=== PATIENT | female | born 1965 | race Caucasian/White ===

== ENCOUNTER 2016-08-04 14:48 | Emergency (ER) | payer MEDICARE, MEDICAID ==
[2016-08-04 15:07] VITALS: BP 102/76
--- NOTE | 2016-08-04 15:13 | EDM.PDOC ---
ED HPI GENERAL MEDICAL PROBLEM - General Chief Complaint: General Stated Complaint: RX REFILL Time Seen by Provider: 08/04/16 14:59 Source of Information: Reports: Patient, RN, RN notes reviewed History Limitations: Reports: No limitations - History of Present Illness INITIAL COMMENTS - FREE TEXT/NARRATIVE: Patient presents to the ED at [facility] requesting refill of her Tramadol. Patient states she ran out of her medication 2 days ago and is having severe fibromyalgia pain. Patient states she did contact her PCP for a refill, but was never contacted back from the pharmacy stating a refill was ready. Patient complain of nausea and feelings of withdrawal symptoms. Onset Date: 08/02/16 - Related Data Allergies Allergy/AdvReac Type Severity Reaction Status Date / Time codeine Allergy Rash Verified 08/04/16 15:12 Sulfa (Sulfonamide Allergy Rash Verified 08/04/16 15:12 Antibiotics) Home Meds: Home Meds ClonazePAM [KlonoPIN] 2 mg PO BID 08/19/13 [History] Gabapentin [Neurontin] 300 mg PO TID 08/19/13 [History] Indomethacin [Indocin] 25 mg PO TID #30 cap 08/19/13 [Rx] Levothyroxine 25 mcg PO ACBRK 08/19/13 [History] Topiramate [Topamax] 50 mg PO BEDTIME 08/19/13 [History] Venlafaxine [Effexor] 100 mg PO DAILY 08/19/13 [History] traMADol HCl [Ultram] 50 mg PO QID PRN 08/19/13 [History] Acetaminophen/HYDROcodone [[place]nard 325-5 MG] 1 - 2 tab PO Q6H PRN #4 tab 08/20/13 [Rx] Hydrocodone/Acetaminophen [[place] 10-325 Tablet] 1 each PO Q4H #14 tablet [Rx] Social & Family History - Tobacco Use Years of Tobacco use: 20 - Alcohol Use Days Per Week of Alcohol Use: 0 - Recreational Drug Use Recreational Drug Use: No ED ROS GENERAL - Review of Systems Review Of Systems: See Below Constitutional: Denies: fever, chills, weakness Respiratory: Denies: shortness of breath, cough Cardiovascular: Denies: Chest pain, Blood pressure problem, Palpitations GI/Abdominal: Reports: Nausea. Denies: Abdominal pain, Diarrhea, Vomiting Skin: Reports: no symptoms Neurological: Denies: confusion, headache, tremors, trouble speaking Psychiatric: Reports: Agitation ED EXAM, GENERAL - Physical Exam Exam: See Below Exam Limited By: No limitations General Appearance: alert, no apparent distress, thin, cachetic Respiratory/Chest: no respiratory distress, lungs clear, normal breath sounds Cardiovascular: normal peripheral pulses, regular rate, rhythm. No: tachycardia GI/Abdominal: normal bowel sounds, soft, non tender, no distention Neurological: alert, oriented Psychiatric: tearful Skin Exam: Warm, Dry, Intact, Normal color, No rash Course - Vital Signs Last Recorded V/S: Last Vital Signs Temp 36.9 C 08/04/16 15:00 Pulse 86 08/04/16 15:00 Resp 18 08/04/16 15:00 BP 102/76 08/04/16 15:00 Pulse Ox 99 08/04/16 15:00 - Orders/Labs/Meds Meds: Medications Discontinued Medications Generic Name Dose Route Start Last Admin Trade Name Brianna PRN Reason Stop Dose Admin Lorazepam 2 packet 08/04/16 15:20 Take Home: Lorazepam 0.5 Mg, 2 Tab Pack PO 08/04/16 15:21 ONETIME ONE Ondansetron HCl 1 packet 08/04/16 15:21 Take Home: Ondansetron Odt 4 Mg, 2 Tab Pack PO 08/04/16 15:22 ONETIME ONE Departure - Departure Time of Disposition: 15:30 Disposition: Home, Self-Care 01 Condition: good Clinical Impression: Narcotic dependence, Medication refill Referrals: Gilbert Jordan MD [Primary Care Provider] - Forms: ED Department Discharge Additional Instructions: 1. Keep appointment with Dr. Jordan for this Friday 2. Take medications as prescribed 3. Stay well hydrated and rest - Problem List Review Problem List Initiated/Reviewed/Updated: Yes - Assessment/Plan Plan: [place] accessed on 08/04/2016 @15:23
[2016-08-04] MEDS ORDERED: Take Home: LORazepam 0.5 MG Tab, 2 Tab Pack PO ONE (15:20)
[2016-08-04] MEDS ORDERED: Take Home: Ondansetron 4 MG Tab.DIS, 2 Tab Pack PO ONE (15:21)
== END 2016-08-04 16:05 | disposition home or self-care (01) ==
LOC: VM.ED 14:48
DX: F11.20 Opioid dependence, uncomplicated (principal); Z76.0 Encounter for issue of repeat prescription; Z88.2 Allergy status to sulfonamides; Z88.5 Allergy status to narcotic agent; Z79.899 Other long term (current) drug therapy
CPT/HCPCS: 99283; A9270

== ENCOUNTER 2017-02-14 17:46 | Emergency (ER) | payer MEDICARE, MEDICAID ==
[~2017-02-14 17:46] MED LIST: Ketorolac 30 MG/ML SDV IM ONE
--- NOTE | 2017-02-14 17:46 | EDM.PDOC ---
<Samson Marte - Last Filed: 02/14/17 19:28> ED HPI GENERAL MEDICAL PROBLEM - General Chief Complaint: Flank Pain Stated Complaint: right lower back/flank pain Time Seen by Provider: 02/14/17 17:10 - Related Data Allergies Allergy/AdvReac Type Severity Reaction Status Date / Time codeine Allergy Rash Verified 02/14/17 17:24 Sulfa (Sulfonamide Allergy Rash Verified 02/14/17 17:24 Antibiotics) Home Meds: Home Meds ClonazePAM [KlonoPIN] 2 mg PO BID 08/19/13 [History] Gabapentin [Neurontin] 600 mg PO TID 08/19/13 [History] Levothyroxine 25 mcg PO ACBRK 08/19/13 [History] Topiramate [Topamax] 400 mg PO BEDTIME 08/19/13 [History] Venlafaxine [Effexor] 100 mg PO BID 08/19/13 [History] traMADol HCl [Ultram] 100 mg PO QID PRN 08/19/13 [History] Cyanocobalamin (Vitamin B-12) [Vitamin B-12] 1,000 mcg PO DAILY 08/04/16 [ History] Fluticasone Propionate [Flonase] 2 sprays NASBOTH DAILY 08/04/16 [History] Omeprazole Magnesium [Prilosec Otc] 20 mg PO DAILY 08/04/16 [History] Pregabalin [Lyrica] 100 mg PO BID 08/04/16 [History] traZODone HCl [Trazodone HCl] 50 mg PO DAILY 08/04/16 [History] Hydrochlorothiazide 25 mg PO DAILY 02/14/17 [History] Norgestrel-Ethinyl Estradiol [Cryselle-28 Tablet] 1 each PO DAILY 02/14/17 [ History] Tamsulosin HCl [Flomax] 0.4 mg PO DAILY 5 Days #5 cap.er.24h 02/14/17 [Rx] Course - Vital Signs Last Recorded V/S: Last Vital Signs Temp 37.0 C 02/14/17 17:05 Pulse 76 02/14/17 17:05 Resp 20 02/14/17 17:05 BP 123/67 02/14/17 17:05 Pulse Ox 97 02/14/17 17:05 - Orders/Labs/Meds Labs: Laboratory Tests 02/14/17 02/14/17 02/14/17 Range/Units 17:34 18:07 18:07 Sodium 139 (136-145) mmol/L Potassium 3.8 (3.5-5.1) mmol/L Chloride 104 (98-107) mmol/L Carbon Dioxide 24 (21-32) mmol/L BUN 12 (7-18) mg/dL Creatinine 1.2 H (0.55-1.02) mg/dL Est Cr Clr Drug Dosing TNP Estimated GFR (MDRD) 48 Glucose 89 (74-106) mg/dL Calcium 8.3 L (8.5-10.1) mg/dL Urine Color Yellow (YELLOW) Urine Appearance Clear (CLEAR) Urine pH 7.0 (5.0-8.0) Ur Specific [place] 1.015 Urine Protein Negative (NEGATIVE) mg/dL Urine Glucose (UA) Negative (NEGATIVE) mg/dL Urine Ketones Negative (NEGATIVE) mg/dL Urine Occult Blood Negative (NEGATIVE) Urine Nitrite Negative (NEGATIVE) Urine Bilirubin Negative (NEGATIVE) Urine Urobilinogen 0.2 (0.2) EU/dL Ur Leukocyte Esterase Small H (NEGATIVE) Urine RBC 0-5 (NOT SEEN) /HPF Urine WBC 5-10 H (NOT SEEN) /HPF Ur Squamous Epith Cells Rare (NEGATIVE) /HPF Urine Bacteria Not seen (NEGATIVE) /HPF Urine Mucus Not seen (NEGATIVE) /LPF Urine HCG, Qual Negative (NEGATIVE) Urine Opiates Screen (NEGATIVE) Ur Buprenorphine Scrn (NEGATIVE) Ur Oxycodone Screen (NEGATIVE) Urine Methadone Screen (NEGATIVE) Ur Barbiturates Screen (NEGATIVE) Ur Tricyclics Screen (NEGATIVE) Ur Amphetamine Screen (NEGATIVE) U Methamphetamines Scrn (NEGATIVE) Urine MDMA Screen (NEGATIVE) U Benzodiazepines Scrn (NEGATIVE) U Cocaine Metab Screen (NEGATIVE) U Marijuana (THC) Screen (NEGATIVE) 02/14/17 Range/Units 18:07 Sodium (136-145) mmol/L Potassium (3.5-5.1) mmol/L Chloride (98-107) mmol/L Carbon Dioxide (21-32) mmol/L BUN (7-18) mg/dL Creatinine (0.55-1.02) mg/dL Est Cr Clr Drug Dosing Estimated GFR (MDRD) Glucose (74-106) mg/dL Calcium (8.5-10.1) mg/dL Urine Color (YELLOW) Urine Appearance (CLEAR) Urine pH (5.0-8.0) Ur Specific [place] Urine Protein (NEGATIVE) mg/dL Urine Glucose (UA) (NEGATIVE) mg/dL Urine Ketones (NEGATIVE) mg/dL Urine Occult Blood (NEGATIVE) Urine Nitrite (NEGATIVE) Urine Bilirubin (NEGATIVE) Urine Urobilinogen (0.2) EU/dL Ur Leukocyte Esterase (NEGATIVE) Urine RBC (NOT SEEN) /HPF Urine WBC (NOT SEEN) /HPF Ur Squamous Epith Cells (NEGATIVE) /HPF Urine Bacteria (NEGATIVE) /HPF Urine Mucus (NEGATIVE) /LPF Urine HCG, Qual (NEGATIVE) Urine Opiates Screen Negative (NEGATIVE) Ur Buprenorphine Scrn Negative (NEGATIVE) Ur Oxycodone Screen Negative (NEGATIVE) Urine Methadone Screen Negative (NEGATIVE) Ur Barbiturates Screen Negative (NEGATIVE) Ur Tricyclics Screen Negative (NEGATIVE) Ur Amphetamine Screen Presumptive pos (NEGATIVE) U Methamphetamines Scrn Positive H (NEGATIVE) Urine MDMA Screen Negative (NEGATIVE) U Benzodiazepines Scrn Positive H (NEGATIVE) U Cocaine Metab Screen Negative (NEGATIVE) U Marijuana (THC) Screen Negative (NEGATIVE) Meds: Medications Discontinued Medications Generic Name Dose Route Start Last Admin Trade Name Freq PRN Reason Stop Dose Admin Hydrocodone Bitart/Acetaminophen 1 packet 02/14/17 19:32 02/14/17 19:43 Take Home: Acetam/Hydrocodon 325-5 Mg, 5 Pack PO 02/14/17 19:33 1 packet ONETIME ONE Administration Ketorolac Tromethamine 30 mg 02/14/17 17:26 02/14/17 17:39 Toradol IM 02/14/17 17:27 30 mg ONETIME ONE Administration Morphine Sulfate 4 mg 02/14/17 18:49 02/14/17 18:56 Morphine IM 02/14/17 18:50 4 mg ONETIME ONE Administration - Radiology Interpretation Free Text/Narrative:: CT Abd/Pelvis: Right Side Nephrolithiasis; No hydronephrosis; No radiopaque Ureteral calculusl; narrowing of the sigmoid colon of uncertain significance; slight prominence of the endometrium See scanned document in EMR CT Results Date: 02/14/17 CT Results Time: 19:17 Departure - Departure Time of Disposition: 19:33 Disposition: Home, Self-Care 01 Condition: Good Clinical Impression: Nephrolithiasis - Discharge Information Prescriptions: Tamsulosin HCl [Flomax] 0.4 mg PO DAILY 5 Days #5 cap.er.24h Instructions: Kidney Stones, [id number] Referrals: Gilbert Jordan MD [Primary Care Provider] - Forms: ED Department Discharge Additional Instructions: 1. stay well hydrate and rest 2. LOTS of fluids; water 3. Use pain pills sparingly, do not mix with Tramadol 4. See your Primary as symptoms warrant - Problem List Review Problem List Initiated/Reviewed/Updated: Yes <Yossi Tirado - Last Filed: 02/16/17 19:37> ED HPI GENERAL MEDICAL PROBLEM - General Source of Information: Reports: Patient, Provider History Limitations: Reports: No Limitations - History of Present Illness INITIAL COMMENTS - FREE TEXT/NARRATIVE: Patient presents to the ED with complaints of right flank pain that she woke to yesterday. States pain has been getting more intense since that time. Faina Downey called at 1700 letting me know that she was sending her over to be looked at. Urinalysis showed no blood in her urine, trace leukocytes. Apparently she was not happy with not getting medicine for pain and she began yelling and swearing at the provider at the [facility]. She currently does take tramadol, gabapentin, lyrica, trazodone, among other medications like klonopin, topamax, effexor, synthroid, vitamin b-12, HCTZ, flonase. States she had a kidney stone about 5-6 years ago. She states her pain today is sharp, stabbing, and intermittent and feels like labor. 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) Other OB/BYN History: menorrhagia Musculoskeletal History: Reports: Fibromyalgia, Other (See Below) Other Musculoskeletal History: family history of polymositis Neurological History: Reports: Migraines, Other (See Below) Other Neuro History: family history of char[place] li[place] tooth Psychiatric History: Reports: Anxiety, Depression Endocrine/Metabolic History: Reports: Hypothyroidism Hematologic History: Reports: B12 Deficiency - Infectious Disease History Infectious Disease History: Reports: Hepatitis C - Past Surgical History GI Surgical History: Reports: Other (See Below) Other GI Surgeries/Procedures: splenectomy Social & Family History - Tobacco Use Smoking Status *Q: Current Every Day Smoker Years of Tobacco use: 30 Packs/Tins Daily: 0.5 - Alcohol Use Days Per Week of Alcohol Use: 0 - Recreational Drug Use Recreational Drug Use: No ED ROS GENERAL - Review of Systems Review Of Systems: See Below Constitutional: Reports: No Symptoms HEENT: Reports: No Symptoms Respiratory: Reports: No Symptoms Cardiovascular: Reports: No Symptoms Endocrine: Reports: No Symptoms GI/Abdominal: Reports: No Symptoms : Reports: No Symptoms Musculoskeletal: Reports: Back Pain Skin: Reports: No Symptoms Neurological: Reports: No Symptoms Psychiatric: Reports: No Symptoms Hematologic/Lymphatic: Reports: No Symptoms Immunologic: Reports: No Symptoms ED EXAM,LOWER BACK PAIN/INJURY - Physical Exam Exam: See Below Exam Limited By: No Limitations General Appearance: Alert, WD/WN, Moderate Distress Eye Exam: Bilateral Eye: EOMI, PERRL Ears: Normal TMs Throat/Mouth: Normal Inspection, Normal Oropharynx Head: Atraumatic, Normocephalic Neck: Normal Inspection Respiratory/Chest: No Respiratory Distress, Lungs Clear, Normal Breath Sounds, No Accessory Muscle Use, Chest Non-Tender Cardiovascular: Normal Peripheral Pulses, Regular Rate, Rhythm, No Edema GI/Abdominal: Normal Bowel Sounds, Soft, Non-Tender, No Organomegaly, No Distention Back Exam: Normal Inspection, CVA Tenderness (R), Decreased Range of Motion. No : CVA Tenderness (L) Extremities: Normal Inspection, Normal Range of Motion, Non-Tender, No Pedal Edema, Normal Capillary Refill Neurological: Alert, Normal Mood/Affect, Normal Dorsiflexion, CN II-XII Intact, Oriented x 3 Psychiatric: Normal Affect, Anxious Skin Exam: Warm, Dry, Intact, Normal Color Lymphatic: No Adenopathy Course - Orders/Labs/Meds Labs: Laboratory Tests 02/14/17 02/14/17 02/14/17 Range/Units 17:34 18:07 18:07 Sodium 139 (136-145) mmol/L Potassium 3.8 (3.5-5.1) mmol/L Chloride 104 (98-107) mmol/L Carbon Dioxide 24 (21-32) mmol/L BUN 12 (7-18) mg/dL Creatinine 1.2 H (0.55-1.02) mg/dL Est Cr Clr Drug Dosing TNP Estimated GFR (MDRD) 48 Glucose 89 (74-106) mg/dL Calcium 8.3 L (8.5-10.1) mg/dL Urine Color Yellow (YELLOW) Urine Appearance Clear (CLEAR) Urine pH 7.0 (5.0-8.0) Ur Specific [place] 1.015 Urine Protein Negative (NEGATIVE) mg/dL Urine Glucose (UA) Negative (NEGATIVE) mg/dL Urine Ketones Negative (NEGATIVE) mg/dL Urine Occult Blood Negative (NEGATIVE) Urine Nitrite Negative (NEGATIVE) Urine Bilirubin Negative (NEGATIVE) Urine Urobilinogen 0.2 (0.2) EU/dL Ur Leukocyte Esterase Small H (NEGATIVE) Urine RBC 0-5 (NOT SEEN) /HPF Urine WBC 5-10 H (NOT SEEN) /HPF Ur Squamous Epith Cells Rare (NEGATIVE) /HPF Urine Bacteria Not seen (NEGATIVE) /HPF Urine Mucus Not seen (NEGATIVE) /LPF Urine HCG, Qual Negative (NEGATIVE) Urine Opiates Screen (NEGATIVE) Ur Buprenorphine Scrn (NEGATIVE) Ur Oxycodone Screen (NEGATIVE) Urine Methadone Screen (NEGATIVE) Ur Barbiturates Screen (NEGATIVE) Ur Tricyclics Screen (NEGATIVE) Ur Amphetamine Screen (NEGATIVE) U Methamphetamines Scrn (NEGATIVE) Urine MDMA Screen (NEGATIVE) U Benzodiazepines Scrn (NEGATIVE) U Cocaine Metab Screen (NEGATIVE) U Marijuana (THC) Screen (NEGATIVE) 02/14/17 Range/Units 18:07 Sodium (136-145) mmol/L Potassium (3.5-5.1) mmol/L Chloride (98-107) mmol/L Carbon Dioxide (21-32) mmol/L BUN (7-18) mg/dL Creatinine (0.55-1.02) mg/dL Est Cr Clr Drug Dosing Estimated GFR (MDRD) Glucose (74-106) mg/dL Calcium (8.5-10.1) mg/dL Urine Color (YELLOW) Urine Appearance (CLEAR) Urine pH (5.0-8.0) Ur Specific [place] Urine Protein (NEGATIVE) mg/dL Urine Glucose (UA) (NEGATIVE) mg/dL Urine Ketones (NEGATIVE) mg/dL Urine Occult Blood (NEGATIVE) Urine Nitrite (NEGATIVE) Urine Bilirubin (NEGATIVE) Urine Urobilinogen (0.2) EU/dL Ur Leukocyte Esterase (NEGATIVE) Urine RBC (NOT SEEN) /HPF Urine WBC (NOT SEEN) /HPF Ur Squamous Epith Cells (NEGATIVE) /HPF Urine Bacteria (NEGATIVE) /HPF Urine Mucus (NEGATIVE) /LPF Urine HCG, Qual (NEGATIVE) Urine Opiates Screen Negative (NEGATIVE) Ur Buprenorphine Scrn Negative (NEGATIVE) Ur Oxycodone Screen Negative (NEGATIVE) Urine Methadone Screen Negative (NEGATIVE) Ur Barbiturates Screen Negative (NEGATIVE) Ur Tricyclics Screen Negative (NEGATIVE) Ur Amphetamine Screen Presumptive pos (NEGATIVE) U Methamphetamines Scrn Positive H (NEGATIVE) Urine MDMA Screen Negative (NEGATIVE) U Benzodiazepines Scrn Positive H (NEGATIVE) U Cocaine Metab Screen Negative (NEGATIVE) U Marijuana (THC) Screen Negative (NEGATIVE)
[2017-02-14 17:53] LABS: CHLORIDE,CL 104 mmol/L (98-107); SODIUM,NA 139 mmol/L (136-145)
[2017-02-14] MEDS ORDERED: Morphine 4 MG/ML Syringe IM ONE (18:49)
[2017-02-14] MEDS ORDERED: Take Home: Acetaminophen/HYDROcodone 325-5 MG, 5 Tab Pack PO ONE (19:32)
== END 2017-02-14 19:52 | disposition home or self-care (01) ==
LOC: VM.ED 19:52
DX: N20.0 Calculus of kidney (principal); G43.909 Migraine, unspecified, not intractable, without status migrainosus; E03.9 Hypothyroidism, unspecified; F17.210 Nicotine dependence, cigarettes, uncomplicated; Z88.2 Allergy status to sulfonamides; Z88.5 Allergy status to narcotic agent
CPT/HCPCS: 36415; 74176; 80048; 80305; 81001; 81025; 87086; 87088; 87186; 96372; 99284; A9270; G0480; J1885; J2270

== ENCOUNTER 2017-02-25 14:21 | Emergency (ER) | payer MEDICARE, MEDICAID ==
[2017-02-25] MEDS ORDERED: Ketorolac 30 MG/ML SDV IVPUSH ONE (15:05)
[2017-02-25] MEDS ORDERED: Prochlorperazine 10 MG/2 ML SDV IV ONE (15:05)
[2017-02-25] MEDS ORDERED: cefTRIAXone 2 GM Vial IVPUSH ONE (15:53)
[2017-02-25] MEDS ORDERED: Take Home: Acetaminophen/HYDROcodone 325-10 MG, 5 Tab Pack PO ONE (15:57)
--- NOTE | 2017-02-25 18:22 | EDM.PDOC ---
ED HPI GENERAL MEDICAL PROBLEM - General Chief Complaint: Flank Pain Stated Complaint: ER Time Seen by Provider: 02/25/17 14:22 Source of Information: Reports: Patient History Limitations: Reports: No Limitations - History of Present Illness INITIAL COMMENTS - FREE TEXT/NARRATIVE: Pt. presents to clinic with complaints of diffuse abdominal and flank pain. Pt. was diagnosed with UTI on 02/15/17 and was prescribed oral antibiotics, but failed to fill her script. Pt. as also found to have an approx. 5 mm. right sided kidney stone for which she was prescribed hydrocodone and flomax. 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 She states that she is not experiencing any fever or chills and denies any nausea/vomiting, or diarrhea. Pt. contacted EMS who did give the pt. 1 mg of dilaudid. Onset: Today, Gradual Onset Date: 02/15/17 Location: Reports: Abdomen Quality: Reports: Ache, Sharp, Stabbing Severity: Severe Improves with: Reports: Medication Right Flank Pain Score (Numeric/FACES): 9 - Related Data Allergies Allergy/AdvReac Type Severity Reaction Status Date / Time codeine Allergy Rash Verified 02/25/17 14:36 Sulfa (Sulfonamide Allergy Rash Verified 02/25/17 14:36 Antibiotics) Home Meds: Home Meds ClonazePAM [KlonoPIN] 2 mg PO BID 08/19/13 [History] Gabapentin [Neurontin] 600 mg PO TID 08/19/13 [History] Levothyroxine 25 mcg PO ACBRK 08/19/13 [History] Topiramate [Topamax] 400 mg PO BEDTIME 08/19/13 [History] Venlafaxine [Effexor] 100 mg PO BID 08/19/13 [History] traMADol HCl [Ultram] 100 mg PO QID PRN 08/19/13 [History] Cyanocobalamin (Vitamin B-12) [Vitamin B-12] 1,000 mcg PO DAILY 08/04/16 [ History] Fluticasone Propionate [Flonase] 2 sprays NASBOTH DAILY 08/04/16 [History] Omeprazole Magnesium [Prilosec Otc] 20 mg PO DAILY 08/04/16 [History] Pregabalin [Lyrica] 100 mg PO BID 08/04/16 [History] traZODone HCl [Trazodone HCl] 50 mg PO DAILY 08/04/16 [History] Hydrochlorothiazide 25 mg PO DAILY 02/14/17 [History] Norgestrel-Ethinyl Estradiol [Cryselle-28 Tablet] 1 each PO DAILY 02/14/17 [ History] Tamsulosin HCl [Flomax] 0.4 mg PO DAILY 5 Days #5 cap.er.24h 02/14/17 [Rx] Past Medical History Genitourinary History: Reports: Renal Calculus Musculoskeletal History: Reports: Fibromyalgia Psychiatric History: Reports: Anxiety Endocrine/Metabolic History: Reports: Hypothyroidism Social & Family History - Tobacco Use Smoking Status *Q: Current Every Day Smoker Years of Tobacco use: 30 Packs/Tins Daily: 0.5 - Alcohol Use Days Per Week of Alcohol Use: 0 - Recreational Drug Use Recreational Drug Use: No ED ROS GENERAL - Review of Systems Review Of Systems: See Below Constitutional: Reports: No Symptoms, Fever HEENT: Reports: No Symptoms Respiratory: Reports: No Symptoms Cardiovascular: Reports: No Symptoms Endocrine: Reports: No Symptoms GI/Abdominal: Reports: Abdominal Pain : Reports: Other (history of untreated UTI and kidney stone) Musculoskeletal: Reports: No Symptoms Skin: Reports: No Symptoms Neurological: Reports: No Symptoms Psychiatric: Reports: No Symptoms Hematologic/Lymphatic: Reports: No Symptoms Immunologic: Reports: No Symptoms ED EXAM, RENAL/ - Physical Exam Exam: See Below Exam Limited By: No Limitations General Appearance: Alert, WD/WN, No Apparent Distress Throat/Mouth: Normal Inspection, Normal Lips, Normal Oropharynx, Normal Voice, No Airway Compromise Respiratory/Chest: No Respiratory Distress, Lungs Clear, Normal Breath Sounds, No Accessory Muscle Use, Chest Non-Tender Cardiovascular: Normal Peripheral Pulses, Regular Rate, Rhythm, No Murmur GI/Abdominal: Normal Bowel Sounds, No Organomegaly, No Distention, No Mass Back Exam: Normal Inspection Extremities: Normal Inspection, Normal Range of Motion, Normal Capillary Refill Neurological: Alert, Oriented, CN II-XII Intact Psychiatric: Normal Affect, Normal Mood Skin Exam: Warm, Dry, Intact Course - Vital Signs Last Recorded V/S: Last Vital Signs Temp 36.3 C 02/25/17 14:22 Pulse 84 02/25/17 14:22 Resp 20 02/25/17 14:22 BP 130/84 02/25/17 14:22 Pulse Ox 97 02/25/17 14:22 - Orders/Labs/Meds Labs: Laboratory Tests 02/25/17 Range/Units 15:12 Urine Color Yellow (YELLOW) Urine Appearance Cloudy H (CLEAR) Urine pH 7.0 (5.0-8.0) Ur Specific [place] 1.015 Urine Protein Negative (NEGATIVE) mg/dL Urine Glucose (UA) Negative (NEGATIVE) mg/dL Urine Ketones Negative (NEGATIVE) mg/dL Urine Occult Blood Negative (NEGATIVE) Urine Nitrite Positive H (NEGATIVE) Urine Bilirubin Negative (NEGATIVE) Urine Urobilinogen 1.0 (0.2) EU/dL Ur Leukocyte Esterase Moderate H (NEGATIVE) Urine RBC 0-5 (NOT SEEN) /HPF Urine WBC 20-30 H (NOT SEEN) /HPF Ur Squamous Epith Cells Many H (NEGATIVE) /HPF Urine Bacteria Many H (NEGATIVE) /HPF Urine Mucus Few H (NEGATIVE) /LPF Meds: Medications Discontinued Medications Generic Name Dose Route Start Last Admin Trade Name Freq PRN Reason Stop Dose Admin Hydrocodone Bitart/Acetaminophen 1 packet 02/25/17 15:57 02/25/17 16:14 Take Home: Acetaminophen/Hydrocodone 325-10mg PO 02/25/17 15:58 1 packet ONETIME ONE Administration Ceftriaxone Sodium 2 gm 02/25/17 15:53 02/25/17 16:14 Rocephin IVPUSH 02/25/17 15:54 2 gm ONETIME ONE Administration Ketorolac Tromethamine 30 mg 02/25/17 15:05 02/25/17 15:18 Toradol IVPUSH 02/25/17 15:06 30 mg ONETIME ONE Administration Prochlorperazine Edisylate 5 mg 02/25/17 15:05 02/25/17 15:16 Compazine IV 02/25/17 15:06 5 mg ONETIME ONE Administration Departure - Departure Time of Disposition: 14:30 Disposition: Home, Self-Care 01 Condition: Good Clinical Impression: UTI, Urinary tract infectious disease, UTI (urinary tract infection) - Discharge Information Instructions: Urinary Tract Infection, Adult Referrals: Gilbert Jordan MD [Primary Care Provider] - Forms: ED Department Discharge Additional Instructions: Cipro 500mg twice daily for 7 days. [place] 10/325mg 1 tablet every 6 hours as needed for pain. Follow-up in clinic tomorrow for refill if you pain medication. 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 Do not take the macrobid. Drink plenty of fluids. - Problem List & Annotations (1) UTI (urinary tract infection) SNOMED Code(s): 02206714 Code(s): N39.0 - URINARY TRACT INFECTION, SITE NOT SPECIFIED Status: Acute Priority: High Qualifiers: Urinary tract infection type: acute pyelonephritis Qualified Code(s): N10 - Acute pyelonephritis - Problem List Review Problem List Initiated/Reviewed/Updated: Yes - Assessment/Plan Assessment:: UTI with early pyelonephritis vs. severe cystitis Plan: Start Cipro 500mg twice daily for 7 days Start flomax 0.4mg once daily Pt. was given a 5 pack of norco 10/325mg for breaktrough pain. Follow-up in clinic this week for recheck.
== END 2017-02-25 16:20 | disposition home or self-care (01) ==
LOC: VM.ED 14:21
DX: N39.0 Urinary tract infection, site not specified (principal); E03.9 Hypothyroidism, unspecified; F17.210 Nicotine dependence, cigarettes, uncomplicated; F41.9 Anxiety disorder, unspecified; Z88.5 Allergy status to narcotic agent; Z88.2 Allergy status to sulfonamides; Z79.899 Other long term (current) drug therapy
CPT/HCPCS: 81001; 96374; 96375; 99284; A9270; J0696; J0780; J1885; 99283-GF

== ENCOUNTER 2017-03-09 15:19 | Inpatient (IN) | payer MEDICARE, MEDICAID ==
[2017-03-09] MEDS ORDERED: Sodium Chloride 0.9% 1,000 ML IV ONE ×2 (15:32→19:25)
[2017-03-09] MEDS ORDERED: Ketorolac 15 MG/ML SDV IVPUSH ONE (15:32)
--- NOTE | 2017-03-09 17:13 | EDM.PDOC ---
<Murali Clements W - Last Filed: 03/09/17 22:15> ED HPI GENERAL MEDICAL PROBLEM - General Chief Complaint: Back Pain or Injury Stated Complaint: back pain Time Seen by Provider: 03/09/17 15:20 Source of Information: Reports: Patient History Limitations: Reports: No Limitations - Related Data Allergies Allergy/AdvReac Type Severity Reaction Status Date / Time codeine Allergy Rash Verified 03/09/17 15:20 Sulfa (Sulfonamide Allergy Rash Verified 03/09/17 15:20 Antibiotics) Home Meds: Home Meds ClonazePAM [KlonoPIN] 2 mg PO BID 08/19/13 [History] Gabapentin [Neurontin] 600 mg PO TID 08/19/13 [History] Levothyroxine 25 mcg PO ACBRK 08/19/13 [History] Topiramate [Topamax] 400 mg PO BEDTIME 08/19/13 [History] Venlafaxine [Effexor] 100 mg PO BID 08/19/13 [History] traMADol HCl [Ultram] 100 mg PO QID PRN 08/19/13 [History] Cyanocobalamin (Vitamin B-12) [Vitamin B-12] 1,000 mcg PO DAILY 08/04/16 [ History] Fluticasone Propionate [Flonase] 2 sprays NASBOTH DAILY 08/04/16 [History] Omeprazole Magnesium [Prilosec Otc] 20 mg PO DAILY 08/04/16 [History] Pregabalin [Lyrica] 100 mg PO BID 08/04/16 [History] traZODone HCl [Trazodone HCl] 50 mg PO BEDTIME 08/04/16 [History] Hydrochlorothiazide 25 mg PO DAILY 02/14/17 [History] Norgestrel-Ethinyl Estradiol [Cryselle-28 Tablet] 1 each PO DAILY 02/14/17 [ History] Tamsulosin HCl [Flomax] 0.4 mg PO DAILY 5 Days #5 cap.er.24h 02/14/17 [Rx] Sennosides [Senokot] 8.6 mg PO DAILY PRN 03/10/17 [History] Tetrahydrz/Dext 70/Peg 400/Pvp [Visine Advanced Eye Drop] 15 ml OP BID PRN 03/10 [History] traMADol HCl [Tramadol HCl] 03/10/17 [History] Cyclobenzaprine [Flexeril] 10 mg PO TID PRN #21 tablet 03/13/17 [Rx] Hydrocodone/Acetaminophen [Hanna 10-325 Tablet] 1 each PO Q6HR #28 tablet [Rx] Nicotine [Habitrol] 21 mg TRDERM DAILY patch 03/13/17 [Rx] Course - Vital Signs Last Recorded V/S: Last Vital Signs Temp 36.9 C 03/13/17 13:50 Pulse 88 03/13/17 13:50 Resp 20 03/13/17 13:50 BP 109/69 03/13/17 13:50 Pulse Ox 100 03/13/17 13:50 - Orders/Labs/Meds Labs: Laboratory Tests 03/09/17 03/09/17 03/09/17 Range/Units 15:40 15:40 15:40 WBC 17.8 H (4.0-10.0) x10^3/uL RBC 4.35 (4.00-5.50) x10^6/uL Hgb 12.7 (12.0-16.0) g/dL Hct 38.5 (33.0-47.0) % MCV 88.5 (78.0-93.0) fL MCH 29.2 (26.0-32.0) pg MCHC 33.0 (32.0-36.0) g/dL RDW Coeff of Bisi 15.6 H (10.0-15.0) % Plt Count 515 H D (130-400) x10^3/uL Neut % (Auto) 69.8 (50.0-80.0) % Lymph % (Auto) 22.1 L (25.0-50.0) % Morton % (Auto) 7.2 (2.0-11.0) % Eos % (Auto) 0.7 (0.0-4.0) % Baso % (Auto) 0.2 (0.2-1.2) % Sodium 140 (136-145) mmol/L Potassium 3.2 L (3.5-5.1) mmol/L Chloride 106 (98-107) mmol/L Carbon Dioxide 24 (21-32) mmol/L BUN 18 (7-18) mg/dL Creatinine 1.1 H (0.55-1.02) mg/dL Est Cr Clr Drug Dosing TNP Estimated GFR (MDRD) 53 Glucose 81 (74-106) mg/dL Calcium 8.2 L (8.5-10.1) mg/dL Corrected Calcium 9.24 (8.5-10.1) mg/dL Total Bilirubin 0.4 (0.2-1.0) mg/dL AST 33 (15-37) U/L ALT 31 (14-59) U/L Alkaline Phosphatase 110 (46-116) U/L C-Reactive Protein 1.1 H (<=0.9) mg/dL Total Protein 7.8 (6.4-8.2) g/dL Albumin 2.7 L (3.4-5.0) g/dL Globulin 5.1 Albumin/Globulin Ratio 0.53 Lipase 231 (73-393) U/L Urine Color (YELLOW) Urine Appearance (CLEAR) Urine pH (5.0-8.0) Ur Specific Mangham Urine Protein (NEGATIVE) mg/dL Urine Glucose (UA) (NEGATIVE) mg/dL Urine Ketones (NEGATIVE) mg/dL Urine Occult Blood (NEGATIVE) Urine Nitrite (NEGATIVE) Urine Bilirubin (NEGATIVE) Urine Urobilinogen (0.2) EU/dL Ur Leukocyte Esterase (NEGATIVE) Urine RBC (NOT SEEN) /HPF Urine WBC (NOT SEEN) /HPF Ur Squamous Epith Cells (NEGATIVE) /HPF Urine Bacteria (NEGATIVE) /HPF Urine Mucus (NEGATIVE) /LPF 03/09/17 Range/Units 16:06 WBC (4.0-10.0) x10^3/uL RBC (4.00-5.50) x10^6/uL Hgb (12.0-16.0) g/dL Hct (33.0-47.0) % MCV (78.0-93.0) fL MCH (26.0-32.0) pg MCHC (32.0-36.0) g/dL RDW Coeff of Bisi (10.0-15.0) % Plt Count (130-400) x10^3/uL Neut % (Auto) (50.0-80.0) % Lymph % (Auto) (25.0-50.0) % Morton % (Auto) (2.0-11.0) % Eos % (Auto) (0.0-4.0) % Baso % (Auto) (0.2-1.2) % Sodium (136-145) mmol/L Potassium (3.5-5.1) mmol/L Chloride (98-107) mmol/L Carbon Dioxide (21-32) mmol/L BUN (7-18) mg/dL Creatinine (0.55-1.02) mg/dL Est Cr Clr Drug Dosing Estimated GFR (MDRD) Glucose (74-106) mg/dL Calcium (8.5-10.1) mg/dL Corrected Calcium (8.5-10.1) mg/dL Total Bilirubin (0.2-1.0) mg/dL AST (15-37) U/L ALT (14-59) U/L Alkaline Phosphatase (46-116) U/L C-Reactive Protein (<=0.9) mg/dL Total Protein (6.4-8.2) g/dL Albumin (3.4-5.0) g/dL Globulin Albumin/Globulin Ratio Lipase (73-393) U/L Urine Color Yellow (YELLOW) Urine Appearance Cloudy H (CLEAR) Urine pH 5.5 (5.0-8.0) Ur Specific [place] >=1.030 Urine Protein 30 H (NEGATIVE) mg/dL Urine Glucose (UA) Negative (NEGATIVE) mg/dL Urine Ketones Trace H (NEGATIVE) mg/dL Urine Occult Blood Negative (NEGATIVE) Urine Nitrite Negative (NEGATIVE) Urine Bilirubin Small H (NEGATIVE) Urine Urobilinogen 1.0 (0.2) EU/dL Ur Leukocyte Esterase Small H (NEGATIVE) Urine RBC 0-5 (NOT SEEN) /HPF Urine WBC 20-30 H (NOT SEEN) /HPF Ur Squamous Epith Cells Many H (NEGATIVE) /HPF Urine Bacteria Moderate H (NEGATIVE) /HPF Urine Mucus Moderate H (NEGATIVE) /LPF Meds: Medications Discontinued Medications Generic Name Dose Route Start Last Admin Trade Name Freq PRN Reason Stop Dose Admin Hydrocodone Bitart/Acetaminophen 1 tab 03/09/17 21:10 03/12/17 02:18 Hanna 325-5 Mg PO 1 tab Q4H PRN Administration Pain (moderate 4-6) Hydrocodone Bitart/Acetaminophen 1 tab 03/12/17 09:19 03/13/17 14:01 Hanna 325-10 Mg PO 1 tab Q6H PRN Administration Pain Clonazepam 2 mg 03/11/17 20:00 03/13/17 07:39 Klonopin PO 2 mg BID CHRISTY Administration Cyanocobalamin 1,000 mcg 03/12/17 08:00 03/13/17 07:41 Vitamin B12 PO 1,000 mcg DAILY CHRISTY Administration Gabapentin 600 mg 03/11/17 20:00 03/13/17 12:27 Neurontin PO 600 mg TID CHRISTY Administration Hydrochlorothiazide 25 mg 03/12/17 08:00 03/13/17 07:41 Hydrochlorothiazide PO 25 mg DAILY CHRISTY Administration Sodium Chloride 1,000 mls @ 999 mls/hr 03/09/17 15:32 03/09/17 15:19 Normal Saline IV 03/09/17 16:32 999 mls/hr ONETIME ONE Administration Sodium Chloride 1,000 mls @ 1,000 mls/hr 03/09/17 19:25 03/09/17 19:36 Normal Saline IV 03/09/17 20:24 1,000 mls/hr .BOLUS ONE Administration Piperacillin Sod/Tazobactam 100 mls @ 200 mls/hr 03/09/17 19:25 03/09/17 19: 39 Sod 4.5 gm/ Sodium Chloride IV 03/09/17 19:54 200 mls/hr ONETIME ONE Administration Piperacillin Sod/Tazobactam 100 mls @ 200 mls/hr 03/10/17 08:30 03/12/17 08: 11 Sod 4.5 gm/ Sodium Chloride IV 200 mls/hr Q6H CHRISTY Administration Ketorolac Tromethamine 15 mg 03/09/17 15:32 03/09/17 15:37 Toradol IVPUSH 03/09/17 15:33 15 mg ONETIME ONE Administration Levothyroxine Sodium 25 mcg 03/12/17 07:00 03/13/17 06:11 Levothyroxine PO 25 mcg ACBRK CHRISTY Administration Magnesium Hydroxide 30 ml 03/12/17 09:18 03/12/17 09:29 Milk Of Magnesia PO 03/12/17 09:19 30 ml ONETIME ONE Administration Morphine Sulfate 4 mg 03/09/17 17:15 03/09/17 17:22 Morphine IVPUSH 03/09/17 17:16 4 mg ONETIME ONE Administration Morphine Sulfate 4 mg 03/09/17 19:25 03/09/17 19:37 Morphine IVPUSH 03/09/17 19:26 4 mg ONETIME ONE Administration Morphine Sulfate 4 mg 03/09/17 21:11 03/12/17 00:35 Morphine IVPUSH 4 mg Q4H PRN Administration Pain (severe 7-10) Nicotine 21 mg 03/10/17 09:30 03/13/17 07:42 Habitrol TRDERM 21 mg DAILY CHRISTY Administration Non-Formulary Medication 1 each 03/12/17 08:00 03/13/17 13:57 Norgestrel-Ethinyl Estradiol [Cryselle-28 Tablet] PO Not Given DAILY CHRISTY Non-Formulary Medication 15 ml 03/11/17 17:05 Tetrahydrz/Dext 70/Peg 400/Pvp [Visine Advanced Eye Drop] OP BID PRN Dry Eyes Venlafaxine 100 Mg * 0 mg 03/11/17 20:00 03/13/17 12:27 *Own Med PO 100 mg BID CHRISTY Administration Omeprazole 20 mg 03/12/17 08:00 03/13/17 07:41 Omeprazole PO 20 mg DAILY CHRISTY Administration Pregabalin 100 mg 03/11/17 20:00 03/13/17 07:40 Lyrica PO 100 mg BID CHRISTY Administration Senna 8.6 mg 03/11/17 17:05 03/12/17 09:26 Senna PO 8.6 mg DAILY PRN Administration Constipation Sodium Chloride 10 ml 03/09/17 15:32 03/12/17 08:18 Saline Flush FLUSH 10 ml ASDIRECTED PRN Administration Keep Vein Open Tamsulosin HCl 0.4 mg 03/09/17 17:15 03/09/17 17:22 Flomax PO 03/09/17 17:16 0.4 mg ONETIME ONE Administration Topiramate 400 mg 03/11/17 20:00 03/12/17 20:02 Topamax PO 400 mg BEDTIME CHRISTY Administration Tramadol HCl 100 mg 03/11/17 10:00 03/13/17 14:00 Ultram PO 100 mg TID@0600,1400,2200 CHRISTY Administration Trazodone HCl 50 mg 03/11/17 20:00 03/12/17 20:00 Trazodone PO 50 mg BEDTIME CHRISTY Administration - Radiology Interpretation Free Text/Narrative:: CT chest/abd/pelvis was performed. Was found to have fracture of L2 with associated retroperitoneal hemorrhage. Unknown of secondary to trauma or pathologic. Pt. denies trauma. No evidence of discitis or other inflammatory changes. Departure - Departure Time of Disposition: 22:16 Disposition: Admitted As Inpatient 67 Condition: Fair Clinical Impression: Pyelonephritis, L2 vertebral fracture - Discharge Information - Assessment/Plan Assessment:: Pyelonephritis L2 fracture of unknown etiology Plan: Admit acute to med/surg Dr. Mcleod to follow tonight. D[facility]. They advised pt. having MRI in next 1-2 days. MRI is available tomorrow. Will do lumbar spine MRI with contast tomorrow. Zosyn 4.5gm IV every 6 hours. Hanna 5/325mg every 4 hours for moderate pain. Morphine 4mg IV every 4 hours for breakthrough pain. Normal saline at 250ml/hr for dehydration. Pt. is code level 1. <Yossi Tirado - Last Filed: 03/16/17 15:24> ED HPI GENERAL MEDICAL PROBLEM - General Source of Information: Reports: Patient History Limitations: Reports: No Limitations - History of Present Illness INITIAL COMMENTS - FREE TEXT/NARRATIVE: Patient comes in this afternoon via ambulance services. She has complaints of bilateral back pain that wraps around to her lower abdomen and pelvis. She also states she has some pain and burning down into the upper quadriceps anteriorly. This patient's been seen several times over the last few weeks with reports of pain. Follow-ups have shown her to have a 5 mm right kidney stone, simple and uncomplicated cystitis as well as pyelonephritis. She reports that she finished her course of ciprofloxacin that Murali Clements prescribed to her. She also was given Flomax 0.4 mg daily to help pass the stone for which she says she is taking all of those as well. 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 History: Reports: Other (See Below) Other OB/BYN History: menorrhagia Musculoskeletal History: Reports: Fibromyalgia Other Musculoskeletal History: family history of polymositis Neurological History: Reports: Migraines, Other (See Below) Other Neuro History: family history of char[place] li[place] tooth Psychiatric History: Reports: Anxiety, Depression Endocrine/Metabolic History: Reports: Hypothyroidism Hematologic History: Reports: B12 Deficiency - Infectious Disease History Infectious Disease History: Reports: Hepatitis C - Past Surgical History GI Surgical History: Reports: Other (See Below) Other GI Surgeries/Procedures: splenectomy Social & Family History - Tobacco Use Smoking Status *Q: Current Every Day Smoker Years of Tobacco use: 32 Packs/Tins Daily: 0.5 - Alcohol Use Days Per Week of Alcohol Use: 0 - Recreational Drug Use Recreational Drug Use: No ED ROS GENERAL - Review of Systems Review Of Systems: See Below Constitutional: Reports: No Symptoms HEENT: Reports: No Symptoms Respiratory: Reports: No Symptoms Cardiovascular: Reports: No Symptoms Endocrine: Reports: No Symptoms GI/Abdominal: Reports: Abdominal Pain : Reports: No Symptoms Musculoskeletal: Reports: Back Pain, Leg Pain Skin: Reports: No Symptoms Neurological: Reports: No Symptoms Psychiatric: Reports: No Symptoms Hematologic/Lymphatic: Reports: No Symptoms Immunologic: Reports: No Symptoms ED EXAM,LOWER BACK PAIN/INJURY - Physical Exam Exam: See Below Exam Limited By: No Limitations General Appearance: Alert, WD/WN, No Apparent Distress Eye Exam: Bilateral Eye: EOMI, PERRL Ears: Normal TMs Throat/Mouth: Normal Inspection, Normal Oropharynx Head: Atraumatic, Normocephalic Neck: Normal Inspection, Supple, Non-Tender, Full Range of Motion Respiratory/Chest: No Respiratory Distress, Lungs Clear, Normal Breath Sounds Cardiovascular: Normal Peripheral Pulses, Regular Rate, Rhythm, No Edema GI/Abdominal: Guarding, Rigid, Tender Back Exam: CVA Tenderness (L), CVA Tenderness (R), Decreased Range of Motion, Vertebral Tenderness Extremities: Limited Range of Motion Neurological: Alert, Normal Mood/Affect, Oriented x 3, Abnormal Sensation (to anterior upper legs) Psychiatric: Anxious Skin Exam: Warm, Dry, Intact Lymphatic: No Adenopathy Course - Re-Assessments/Exams Free Text/Narrative Re-Assessment/Exam: 03/16/17 15:23 Care of patient turned to Murali Clements 03/09/17 at 1830
[2017-03-09] MEDS ORDERED: Tamsulosin 0.4 MG Cap.ER PO ONE (17:15)
[2017-03-09] MEDS ORDERED: Morphine 4 MG/ML Syringe IVPUSH ONE ×2 (17:15→19:25)
[2017-03-09 19:07] LABS: CHLORIDE,CL 106 mmol/L (98-107); SODIUM,NA 140 mmol/L (136-145)
[2017-03-09] MEDS ORDERED: Piperacillin/Tazobactam 4.5 GM in Sodium Chloride 0.9% 100 ML IV ONE (19:25)
[2017-03-09] MEDS: Morphine 4 MG/ML Syringe IVPUSH PRN (22:23)
[2017-03-10] MEDS: Acetaminophen/HYDROcodone 325-5 MG Tab PO PRN ×4 (02:35→22:07)
[2017-03-10] MEDS: Morphine 4 MG/ML Syringe IVPUSH PRN ×5 (03:39→23:52)
[2017-03-10] MEDS: Piperacillin/Tazobactam 4.5 GM in Sodium Chloride 0.9% 100 ML IV SCH ×3 (08:44→19:38)
[2017-03-10] MEDS: Nicotine 21 MG/24 Hr Patch TRDERM SCH (11:01)
[2017-03-10] MEDS: Sodium Chloride 0.9% 10 ML Syringe FLUSH PRN ×4 (14:05→23:49)
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
[2017-03-11] MEDS: Acetaminophen/HYDROcodone 325-5 MG Tab PO PRN ×4 (02:14→18:21)
[2017-03-11] MEDS: Piperacillin/Tazobactam 4.5 GM in Sodium Chloride 0.9% 100 ML IV SCH ×5 (02:16→20:01)
[2017-03-11] MEDS: Morphine 4 MG/ML Syringe IVPUSH PRN ×5 (04:27→19:35)
[2017-03-11] MEDS: Sodium Chloride 0.9% 10 ML Syringe FLUSH PRN ×2 (04:27→19:40)
[2017-03-11] MEDS: Nicotine 21 MG/24 Hr Patch TRDERM SCH (08:50)
[2017-03-11] MEDS: traMADol 50 MG Tab PO SCH ×3 (10:48→22:03)
--- NOTE | 2017-03-11 12:46 | PCM.PN ---
- General Info Date of Service: 03/11/17 Admission Dx/Problem (Free Text): History: Still lots of pain from a mild compression fracture of L2 with perivertebral bleeding around the psoas muscle. She still C/O pain all over in her lower back on both sides, into the buttocks, and still is tender to palpation anywhere on her buttocks or sacroiliac area. She is taking both her oral Chula and IV morphine as often as allowed, still says she cant stand the pain. Last night during her H&P she seemed quite comfortable. She is still getting IV Zosyn, blood cultures negative but her urine culture is growing out gram-positive rods which have been sent out for ID. Exam: -In tears, C/O unbearable pain -Tender to palpation over both sacroiliac areas and upper buttocks -Mild pain to palpation over the spines -She is moving around and walking OK but gets into bed slowly Impression: -Chronic pain syndrome and fibromyalgia -Additional pain from mild compression fracture of L2 with localized bleeding around the psoas Plan: -As soon as ID on the urine culture is available, switch from IV Zosyn -Will soon need to slowly wean from her analgesics - Patient Data Vitals - Most Recent: Last Vital Signs Temp 36.9 C 03/11/17 10:00 Pulse 88 03/11/17 10:00 Resp 22 H 03/11/17 10:00 BP 112/67 03/11/17 10:00 Pulse Ox 100 03/11/17 10:00 Weight - Most Recent: 75.206 kg I&O - Last 24 Hours: Intake & Output 03/10/17 03/11/17 03/11/17 22:59 06:59 14:59 Intake Total 1240 1100 240 Output Total 400 1400 400 Balance 840 -300 -160 Jean Paul Results Last 24 Hours: Microbiology 03/10/17 06:51 Aerobic Blood Culture - Preliminary Blood - Venous - Lab Draw NO GROWTH AFTER 1 DAY Anaerobic Blood Culture - Preliminary NO GROWTH AFTER 1 DAY 03/10/17 06:44 Aerobic Blood Culture - Preliminary Blood - Venous NO GROWTH AFTER 1 DAY Anaerobic Blood Culture - Preliminary NO GROWTH AFTER 1 DAY Med Orders - Current: Current Medications Hydrocodone Bitart/Acetaminophen ([place] 325-5 Mg) 1 tab PO Q4H PRN PRN Reason: Pain (moderate 4-6) Last Admin: 03/11/17 08:50 Dose: 1 tab Piperacillin Sod/Tazobactam (Sod 4.5 gm/ Sodium Chloride) 100 mls @ 200 mls/hr IV Q6H [facility] Last Admin: 03/11/17 10:49 Dose: 200 mls/hr Morphine Sulfate (Morphine) 4 mg IVPUSH Q4H PRN PRN Reason: Pain (severe 7-10) Last Admin: 03/11/17 10:48 Dose: 4 mg Nicotine (Habitrol) 21 mg TRDERM DAILY [facility] Last Admin: 03/11/17 08:50 Dose: 21 mg Sodium Chloride (Saline Flush) 10 ml FLUSH ASDIRECTED PRN PRN Reason: Keep Vein Open Last Admin: 03/11/17 04:27 Dose: 10 ml Tramadol HCl (Ultram) 100 mg PO TID@0600,1400,2200 [facility] Last Admin: 03/11/17 10:48 Dose: 100 mg Discontinued Medications Sodium Chloride (Normal Saline) 1,000 mls @ 999 mls/hr IV ONETIME ONE Stop: 03/09/17 16:32 Last Admin: 03/09/17 15:19 Dose: 999 mls/hr Sodium Chloride (Normal Saline) 1,000 mls @ 1,000 mls/hr IV .BOLUS ONE Stop: 03/09/17 20:24 Last Admin: 03/09/17 19:36 Dose: 1,000 mls/hr Piperacillin Sod/Tazobactam (Sod 4.5 gm/ Sodium Chloride) 100 mls @ 200 mls/hr IV ONETIME ONE Stop: 03/09/17 19:54 Last Admin: 03/09/17 19:39 Dose: 200 mls/hr Ketorolac Tromethamine (Toradol) 15 mg IVPUSH ONETIME ONE Stop: 03/09/17 15:33 Last Admin: 03/09/17 15:37 Dose: 15 mg Morphine Sulfate (Morphine) 4 mg IVPUSH ONETIME ONE Stop: 03/09/17 17:16 Last Admin: 03/09/17 17:22 Dose: 4 mg Morphine Sulfate (Morphine) 4 mg IVPUSH ONETIME ONE Stop: 03/09/17 19:26 Last Admin: 03/09/17 19:37 Dose: 4 mg Tamsulosin HCl (Flomax) 0.4 mg PO ONETIME ONE Stop: 03/09/17 17:16 Last Admin: 03/09/17 17:22 Dose: 0.4 mg - Problem List Review Problem List Initiated/Reviewed/Updated: Yes - My Orders Last 24 Hours: My Active Orders 03/11/17 10:00 traMADol [Ultram] 100 mg PO TID@0600,1400,2200
[2017-03-11] MEDS ORDERED: [UNRECOGNIZED DRUG - OTHER] OP PRN (17:05)
[2017-03-11] MEDS ORDERED: Sennosides 8.6 MG Tab PO PRN (17:05)
[2017-03-11] MEDS: Topiramate 50 MG Tab PO SCH (19:33)
[2017-03-11] MEDS: VENLAFAXINE 100 MG PO SCH (19:33)
[2017-03-11] MEDS: Pregabalin 50 MG Cap PO SCH (19:34)
[2017-03-11] MEDS: ClonazePAM 0.5 MG Tab PO SCH (19:34)
[2017-03-11] MEDS: traZODone 50 MG Tab PO SCH (19:35)
[2017-03-11] MEDS: Gabapentin 300 MG Cap PO SCH (19:35)
[2017-03-12] MEDS: Sodium Chloride 0.9% 10 ML Syringe FLUSH PRN ×3 (00:34→08:18)
[2017-03-12] MEDS: Morphine 4 MG/ML Syringe IVPUSH PRN (00:35)
[2017-03-12] MEDS: Acetaminophen/HYDROcodone 325-5 MG Tab PO PRN (02:18)
[2017-03-12] MEDS: Piperacillin/Tazobactam 4.5 GM in Sodium Chloride 0.9% 100 ML IV SCH ×2 (02:24→08:11)
[2017-03-12] MEDS: traMADol 50 MG Tab PO SCH ×3 (06:44→13:13)
[2017-03-12] MEDS: Levothyroxine 25 MCG Tab PO SCH (06:44)
[2017-03-12] MEDS: Nicotine 21 MG/24 Hr Patch TRDERM SCH (08:12)
[2017-03-12] MEDS: Omeprazole 20 MG Cap.CR PO SCH (08:12)
[2017-03-12] MEDS: Gabapentin 300 MG Cap PO SCH ×3 (08:13→20:00)
[2017-03-12] MEDS: Pregabalin 50 MG Cap PO SCH ×2 (08:13→20:00)
[2017-03-12] MEDS: Cyanocobalamin (Vitamin B12) 1,000 MCG Tab PO SCH (08:13)
[2017-03-12] MEDS: Hydrochlorothiazide 25 MG Tab PO SCH (08:13)
[2017-03-12] MEDS: ClonazePAM 0.5 MG Tab PO SCH ×2 (08:13→20:01)
[2017-03-12] MEDS: VENLAFAXINE 100 MG PO SCH ×2 (08:15→19:59)
[2017-03-12] MEDS ORDERED: Magnesium Hydroxide 400 MG/5 ML Susp 30 ML Cup PO ONE (09:18)
--- NOTE | 2017-03-12 09:48 | PCM.PN ---
- General Info Date of Service: 03/12/17 Admission Dx/Problem (Free Text): History: Some of her initial findings are being explained and some remain unexplained: Leukocytosis: Since all her cultures are negative and she is afebrile and normotensive, this is almost certainly splenectomy neutrophilia, she had a splenectomy for ITP many years ago UTI: There was a urine culture ordered in the ER and that only grew out a gram- positive mauricio which is not yet identified but is almost certainly a contaminant. Her blood cultures were negative Back pain: The location of this pain, mainly in her L buttock is not completely explained because the MRI finding shows only a mild L2 compression fracture which was not there previously. There was bleeding next to the fracture, going into the psoas muscle, and since the psoas muscle travels down into the L pelvis , that seems to be the most likely explanation for the location of her pain She received a lot of opioids IV and orally, and until last night I have not restarted her home medications including her laxatives, so she is constipated and has not stooled since admission. Exam: -In slightly better mood today than yesterday, not crying, admits to being anxious about her pain. Says she did not have chronic anxiety until once in the past when she was given a course of steroids and with her bipolar disorder this seems to have caused a chronic anxiety problem -VS OK -Patricks test negative, or at least minimally positive on L -Ambulating independently but only slowly gets adjusted into a comfortable position in bed Impression: -Chronic pain syndrome and drug-seeking behavior; treating back pain after D/C home will be a challenge -Acute pain secondary to mild L2 compression fracture, localized bleeding into the psoas muscle, pain radiating into L buttock -Completing Zosyn for possible pyelonephritis, this ruled out with essentially negative urine culture and negative blood cultures -Leukocytosis on admission 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 if no result -D/C Zosyn -D/C p.r.n. IV morphine -Increase Murphy from 5/325 up to 10/325, give q 6 h p.r.n. .; Plan to continue this at home for 3 weeks, then stop -Ambulate today, anticipate D/C home tomorrow about 11 AM - Patient Data Vitals - Most Recent: Last Vital Signs Temp 36.5 C 03/12/17 09:34 Pulse 73 03/12/17 09:34 Resp 16 03/12/17 09:34 BP 89/59 L 03/12/17 09:34 Pulse Ox 98 03/12/17 09:34 Weight - Most Recent: 75.206 kg I&O - Last 24 Hours: Intake & Output 03/11/17 03/12/17 03/12/17 22:59 06:59 14:59 Intake Total 906 700 800 Output Total 150 600 Balance 756 100 800 Jean Paul Results Last 24 Hours: Microbiology 03/10/17 06:51 Aerobic Blood Culture - Preliminary Blood - Venous - Lab Draw NO GROWTH AFTER 2 DAYS Anaerobic Blood Culture - Preliminary NO GROWTH AFTER 2 DAYS 03/10/17 06:44 Aerobic Blood Culture - Preliminary Blood - Venous NO GROWTH AFTER 2 DAYS Anaerobic Blood Culture - Preliminary NO GROWTH AFTER 2 DAYS Med Orders - Current: Current Medications Hydrocodone Bitart/Acetaminophen (Murphy 325-10 Mg) 1 tab PO Q6H PRN PRN Reason: Pain Clonazepam (Klonopin) 2 mg PO BID [facility] Last Admin: 03/12/17 08:13 Dose: 2 mg Cyanocobalamin (Vitamin B12) 1,000 mcg PO DAILY [facility] Last Admin: 03/12/17 08:13 Dose: 1,000 mcg Gabapentin (Neurontin) 600 mg PO TID [facility] Last Admin: 03/12/17 08:13 Dose: 600 mg Hydrochlorothiazide (Hydrochlorothiazide) 25 mg PO DAILY [facility] Last Admin: 03/12/17 08:13 Dose: 25 mg Levothyroxine Sodium (Levothyroxine) 25 mcg PO ACBRK [facility] Last Admin: 03/12/17 06:44 Dose: 25 mcg Nicotine (Habitrol) 21 mg TRDERM DAILY [facility] Last Admin: 03/12/17 08:12 Dose: 21 mg Non-Formulary Medication (Norgestrel-Ethinyl Estradiol [Cryselle-28 Tablet]) 1 each PO DAILY [facility] Non-Formulary Medication (Tetrahydrz/Dext 70/Peg 400/Pvp [Visine Advanced Eye Drop]) 15 ml OP BID PRN PRN Reason: Dry Eyes Venlafaxine 100 Mg * (*Own Med) 0 mg PO BID [facility] Last Admin: 03/12/17 08:15 Dose: 100 mg Omeprazole (Omeprazole) 20 mg PO DAILY [facility] Last Admin: 03/12/17 08:12 Dose: 20 mg Pregabalin (Lyrica) 100 mg PO BID [facility] Last Admin: 03/12/17 08:13 Dose: 100 mg Senna (Senna) 8.6 mg PO DAILY PRN PRN Reason: Constipation Last Admin: 03/12/17 09:26 Dose: 8.6 mg Sodium Chloride (Saline Flush) 10 ml FLUSH ASDIRECTED PRN PRN Reason: Keep Vein Open Last Admin: 03/12/17 08:18 Dose: 10 ml Topiramate (Topamax) 400 mg PO BEDTIME [facility] Last Admin: 03/11/17 19:33 Dose: 400 mg Tramadol HCl (Ultram) 100 mg PO TID@0600,1400,2200 [facility] Last Admin: 03/12/17 06:58 Dose: 100 mg Trazodone HCl (Trazodone) 50 mg PO BEDTIME [facility] Last Admin: 03/11/17 19:35 Dose: 50 mg Discontinued Medications Hydrocodone Bitart/Acetaminophen (Murphy 325-5 Mg) 1 tab PO Q4H PRN PRN Reason: Pain (moderate 4-6) Last Admin: 03/12/17 02:18 Dose: 1 tab Sodium Chloride (Normal Saline) 1,000 mls @ 999 mls/hr IV ONETIME ONE Stop: 03/09/17 16:32 Last Admin: 03/09/17 15:19 Dose: 999 mls/hr Sodium Chloride (Normal Saline) 1,000 mls @ 1,000 mls/hr IV .BOLUS ONE Stop: 03/09/17 20:24 Last Admin: 03/09/17 19:36 Dose: 1,000 mls/hr Piperacillin Sod/Tazobactam (Sod 4.5 gm/ Sodium Chloride) 100 mls @ 200 mls/hr IV ONETIME ONE Stop: 03/09/17 19:54 Last Admin: 03/09/17 19:39 Dose: 200 mls/hr Piperacillin Sod/Tazobactam (Sod 4.5 gm/ Sodium Chloride) 100 mls @ 200 mls/hr IV Q6H [facility] Last Admin: 10/18/17 08:11 Dose: 200 mls/hr Ketorolac Tromethamine (Toradol) 15 mg IVPUSH ONETIME ONE Stop: 03/09/17 15:33 Last Admin: 03/09/17 15:37 Dose: 15 mg Magnesium Hydroxide (Milk Of Magnesia) 30 ml PO ONETIME ONE Stop: 03/12/17 09:19 Last Admin: 03/12/17 09:29 Dose: 30 ml Morphine Sulfate (Morphine) 4 mg IVPUSH ONETIME ONE Stop: 03/09/17 17:16 Last Admin: 03/09/17 17:22 Dose: 4 mg Morphine Sulfate (Morphine) 4 mg IVPUSH ONETIME ONE Stop: 03/09/17 19:26 Last Admin: 03/09/17 19:37 Dose: 4 mg Morphine Sulfate (Morphine) 4 mg IVPUSH Q4H PRN PRN Reason: Pain (severe 7-10) Last Admin: 03/12/17 00:35 Dose: 4 mg Tamsulosin HCl (Flomax) 0.4 mg PO ONETIME ONE Stop: 03/09/17 17:16 Last Admin: 03/09/17 17:22 Dose: 0.4 mg - Problem List Review Problem List Initiated/Reviewed/Updated: Yes - My Orders Last 24 Hours: My Active Orders 03/11/17 10:00 traMADol [Ultram] 100 mg PO TID@0600,1400,2200 03/11/17 17:05 Sennosides [Senna] 8.6 mg PO DAILY PRN Tetrahydrz/Dext 70/Peg 400/Pvp [Visine Advanced Eye Drop] 15 ml OP BID PRN 03/11/17 20:00 ClonazePAM [KlonoPIN] 2 mg PO BID Gabapentin [Neurontin] 600 mg PO TID Pregabalin [Lyrica] 100 mg PO BID Topiramate [Topamax] 400 mg PO BEDTIME Venlafaxine [Effexor] 0 mg PO BID traZODone 50 mg PO BEDTIME 03/12/17 07:00 Levothyroxine 25 mcg PO ACBRK 03/12/17 08:00 Cyanocobalamin (Vitamin B12) [Vitamin B12] 1,000 mcg PO DAILY Hydrochlorothiazide 25 mg PO DAILY Norgestrel-Ethinyl Estradiol [Cryselle-28 Tablet] 1 each PO DAILY Omeprazole 20 mg PO DAILY 03/12/17 09:19 Acetaminophen/HYDROcodone [Murphy 325-10 MG] 1 tab PO Q6H PRN 03/12/17 09:21 Communication Order [RC] 08,20 03/12/17 09:23 Communication Order [RC] 08,20
[2017-03-12] MEDS: Acetaminophen/HYDROcodone 325-10 MG Tab PO PRN ×2 (12:19→18:28)
[2017-03-12] MEDS: traZODone 50 MG Tab PO SCH (20:00)
[2017-03-12] MEDS: Topiramate 50 MG Tab PO SCH (20:02)
[2017-03-13] MEDS: Acetaminophen/HYDROcodone 325-10 MG Tab PO PRN ×3 (00:36→14:01)
[2017-03-13] MEDS: traMADol 50 MG Tab PO SCH ×3 (00:36→14:00)
[2017-03-13] MEDS: Levothyroxine 25 MCG Tab PO SCH (06:11)
[2017-03-13] MEDS: ClonazePAM 0.5 MG Tab PO SCH (07:39)
[2017-03-13] MEDS: Pregabalin 50 MG Cap PO SCH (07:40)
[2017-03-13] MEDS: Hydrochlorothiazide 25 MG Tab PO SCH (07:41)
[2017-03-13] MEDS: Omeprazole 20 MG Cap.CR PO SCH (07:41)
[2017-03-13] MEDS: Gabapentin 300 MG Cap PO SCH ×2 (07:41→12:27)
[2017-03-13] MEDS: Cyanocobalamin (Vitamin B12) 1,000 MCG Tab PO SCH (07:41)
[2017-03-13] MEDS: Nicotine 21 MG/24 Hr Patch TRDERM SCH (07:42)
[2017-03-13] MEDS: VENLAFAXINE 100 MG PO SCH ×2 (09:32→12:27)
[2017-03-13] MEDS: NORGESTREL ETHINYL ESTRADIOL PO SCH (13:57)
--- NOTE | 2017-03-13 14:15 | PCM.DCSUM1 ---
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 Initial findings: Had pain, tenderness both in R flank and L lower back Mildly elevated WBC Treatment and Course in Hospital: Because she has a known kidney stone in the parenchyma of her R kidney and because she had leukocytosis and mild hypotension, she was treated as possible pyelonephritis with sepsis, with IV Zosyn. However her blood cultures were negative, urine culture grew only a gram-positive mauricio contaminant, and with the Hx of previous splenectomy, it was apparent that her leukocytosis was because of that. The IV Zosyn was stopped when her urine culture came back otherwise negative at [address] of abdomen and pelvis which was unremarkable except for mild compression Fxof L2. With bleeding into the surrounding psoas muscle. This was confirmed with MRI which did not show anything else. She did complain of some urinary incontinence, no problem was seen with the cauda equina on the MRI. It was felt the pain in her L lower back is probably from bleeding traveling down along the course of the L psoas muscle. She continued to have what she calls unbearable pain, was switched from IV morphine and oral Mobile 5/325, overt to Mobile 10/325 QID, and the IV morphine was stopped. She had constipation and is getting a Fleet enema before discharge. She has remained afebrile. Condition on discharge: -Abdomen is soft and nontender -She is still crying with pain but only when observed, moves around fairly well otherwise -Patricks test -2 minimally positive on L -VS, heart and lung sounds normal Discharge Plan: -Advised her the pain is probably from the compression Fx and bleeding in the muscle, this should take about 3 weeks to resolve -She was at first unwilling to go home, she agreed after I offered to also add a muscle relaxant, Flexeril 10 mg TID -She has appointment for Complete Physical on 10/23, plan a pelvic exam, which will probably be normal since her ovaries did not appear abnormal on the CT -She used a nicotine patch during hospitalization, presume she will resume smoking on D/C, did not discuss this with her - Discharge Data Discharge Date: 03/13/17 Discharge Disposition: Home, Self-Care 01 Condition: Fair - Patient Summary/Data Consults: Consultations 03/10/17 00:32 PT Evaluation and Treatment [CONS] Routine - Patient Instructions Diet: Regular Diet as Tolerated Activity: As Tolerated Driving: Do Not Drive Showering/Bathing: May Shower Notify Provider of: Fever, Increased Pain, Swelling and Redness, Nausea and/or Vomiting - Discharge Plan Prescriptions/Med Rec: Hydrocodone/Acetaminophen [Mobile 10-325 Tablet] 1 each PO Q6HR #28 tablet Cyclobenzaprine [Flexeril] 10 mg PO TID PRN #21 tablet PRN Reason: Pain (Moderate 4-6) Home Medications: Home Meds ClonazePAM [KlonoPIN] 2 mg PO BID 08/19/13 [History] Gabapentin [Neurontin] 600 mg PO TID 08/19/13 [History] Levothyroxine 25 mcg PO ACBRK 08/19/13 [History] Topiramate [Topamax] 400 mg PO BEDTIME 08/19/13 [History] Venlafaxine [Effexor] 100 mg PO BID 08/19/13 [History] traMADol HCl [Ultram] 100 mg PO QID PRN 08/19/13 [History] Cyanocobalamin (Vitamin B-12) [Vitamin B-12] 1,000 mcg PO DAILY 08/04/16 [ History] Fluticasone Propionate [Flonase] 2 sprays NASBOTH DAILY 08/04/16 [History] Omeprazole Magnesium [Prilosec Otc] 20 mg PO DAILY 08/04/16 [History] Pregabalin [Lyrica] 100 mg PO BID 08/04/16 [History] traZODone HCl [Trazodone HCl] 50 mg PO BEDTIME 08/04/16 [History] Hydrochlorothiazide 25 mg PO DAILY 02/14/17 [History] Norgestrel-Ethinyl Estradiol [Cryselle-28 Tablet] 1 each PO DAILY 02/14/17 [ History] Tamsulosin HCl [Flomax] 0.4 mg PO DAILY 5 Days #5 cap.er.24h 02/14/17 [Rx] Sennosides [Senokot] 8.6 mg PO DAILY PRN 03/10/17 [History] Tetrahydrz/Dext 70/Peg 400/Pvp [Visine Advanced Eye Drop] 15 ml OP BID PRN 03/10 [History] traMADol HCl [Tramadol HCl] 03/10/17 [History] Cyclobenzaprine [Flexeril] 10 mg PO TID PRN #21 tablet 03/13/17 [Rx] Hydrocodone/Acetaminophen [Mobile 10-325 Tablet] 1 each PO Q6HR #28 tablet [Rx] Nicotine [Habitrol] 21 mg TRDERM DAILY patch 03/13/17 [Rx] Forms: ED Department Discharge Referrals: Gilbert Jordan MD [Primary Care Provider] - - Patient Data Vitals - Most Recent: Last Vital Signs Temp 36.9 C 03/13/17 13:50 Pulse 88 03/13/17 13:50 Resp 20 03/13/17 13:50 BP 109/69 03/13/17 13:50 Pulse Ox 100 03/13/17 13:50 Weight - Most Recent: 75.206 kg I&O - Last 24 hours: Intake & Output 03/12/17 03/13/17 03/13/17 22:59 06:59 14:59 Intake Total 400 300 Output Total 300 Balance 400 0 ESTRELLA Results - Last 24 hrs: Microbiology 03/10/17 06:51 Aerobic Blood Culture - Preliminary Blood - Venous - Lab Draw NO GROWTH AFTER 3 DAYS Anaerobic Blood Culture - Preliminary NO GROWTH AFTER 3 DAYS 03/10/17 06:44 Aerobic Blood Culture - Preliminary Blood - Venous NO GROWTH AFTER 3 DAYS Anaerobic Blood Culture - Preliminary NO GROWTH AFTER 3 DAYS Med Orders - Current: Current Medications Hydrocodone Bitart/Acetaminophen (Mobile 325-10 Mg) 1 tab PO Q6H PRN PRN Reason: Pain Last Admin: 03/13/17 14:01 Dose: 1 tab Clonazepam (Klonopin) 2 mg PO BID [facility] Last Admin: 03/13/17 07:39 Dose: 2 mg Cyanocobalamin (Vitamin B12) 1,000 mcg PO DAILY [facility] Last Admin: 10/19/17 07:41 Dose: 1,000 mcg Gabapentin (Neurontin) 600 mg PO TID [facility] Last Admin: 03/13/17 12:27 Dose: 600 mg Hydrochlorothiazide (Hydrochlorothiazide) 25 mg PO DAILY [facility] Last Admin: 03/13/17 07:41 Dose: 25 mg Levothyroxine Sodium (Levothyroxine) 25 mcg PO ACBRK [facility] Last Admin: 03/13/17 06:11 Dose: 25 mcg Nicotine (Habitrol) 21 mg TRDERM DAILY [facility] Last Admin: 03/13/17 07:42 Dose: 21 mg Venlafaxine 100 Mg * (*Own Med) 0 mg PO BID [facility] Last Admin: 03/13/17 12:27 Dose: 100 mg Omeprazole (Omeprazole) 20 mg PO DAILY [facility] Last Admin: 03/13/17 07:41 Dose: 20 mg Pregabalin (Lyrica) 100 mg PO BID [facility] Last Admin: 03/13/17 07:40 Dose: 100 mg Senna (Senna) 8.6 mg PO DAILY PRN PRN Reason: Constipation Last Admin: 03/12/17 09:26 Dose: 8.6 mg Topiramate (Topamax) 400 mg PO BEDTIME [facility] Last Admin: 03/12/17 20:02 Dose: 400 mg Tramadol HCl (Ultram) 100 mg PO TID@0600,1400,2200 [facility] Last Admin: 03/13/17 14:00 Dose: 100 mg Trazodone HCl (Trazodone) 50 mg PO BEDTIME [facility] Last Admin: 03/12/17 20:00 Dose: 50 mg Discontinued Medications Hydrocodone Bitart/Acetaminophen (Mobile 325-5 Mg) 1 tab PO Q4H PRN PRN Reason: Pain (moderate 4-6) Last Admin: 03/12/17 02:18 Dose: 1 tab Sodium Chloride (Normal Saline) 1,000 mls @ 999 mls/hr IV ONETIME ONE Stop: 03/09/17 16:32 Last Admin: 03/09/17 15:19 Dose: 999 mls/hr Sodium Chloride (Normal Saline) 1,000 mls @ 1,000 mls/hr IV .BOLUS ONE Stop: 03/09/17 20:24 Last Admin: 03/09/17 19:36 Dose: 1,000 mls/hr Piperacillin Sod/Tazobactam (Sod 4.5 gm/ Sodium Chloride) 100 mls @ 200 mls/hr IV ONETIME ONE Stop: 03/09/17 19:54 Last Admin: 03/09/17 19:39 Dose: 200 mls/hr Piperacillin Sod/Tazobactam (Sod 4.5 gm/ Sodium Chloride) 100 mls @ 200 mls/hr IV Q6H [facility] Last Admin: 03/12/17 08:11 Dose: 200 mls/hr Ketorolac Tromethamine (Toradol) 15 mg IVPUSH ONETIME ONE Stop: 03/09/17 15:33 Last Admin: 03/09/17 15:37 Dose: 15 mg Magnesium Hydroxide (Milk Of Magnesia) 30 ml PO ONETIME ONE Stop: 03/12/17 09:19 Last Admin: 03/12/17 09:29 Dose: 30 ml Morphine Sulfate (Morphine) 4 mg IVPUSH ONETIME ONE Stop: 03/09/17 17:16 Last Admin: 03/09/17 17:22 Dose: 4 mg Morphine Sulfate (Morphine) 4 mg IVPUSH ONETIME ONE Stop: 03/09/17 19:26 Last Admin: 03/09/17 19:37 Dose: 4 mg Morphine Sulfate (Morphine) 4 mg IVPUSH Q4H PRN PRN Reason: Pain (severe 7-10) Last Admin: 03/12/17 00:35 Dose: 4 mg Non-Formulary Medication (Norgestrel-Ethinyl Estradiol [Cryselle-28 Tablet]) 1 each PO DAILY [facility] Last Admin: 03/13/17 13:57 Dose: Not Given Non-Formulary Medication (Tetrahydrz/Dext 70/Peg 400/Pvp [Visine Advanced Eye Drop]) 15 ml OP BID PRN PRN Reason: Dry Eyes Sodium Chloride (Saline Flush) 10 ml FLUSH ASDIRECTED PRN PRN Reason: Keep Vein Open Last Admin: 03/12/17 08:18 Dose: 10 ml Tamsulosin HCl (Flomax) 0.4 mg PO ONETIME ONE Stop: 03/09/17 17:16 Last Admin: 03/09/17 17:22 Dose: 0.4 mg *Q Meaningful Use (DIS) - VTE *Q VTE Criteria *Q: - Stroke *Q Stroke Criteria *Q: - AMI *Q AMI Criteria *Q:
== END 2017-03-13 14:15 | disposition home or self-care (01) | DRG 815 ==
LOC: VM.ED 15:19 → VM.MS 20:27 → UNDOADMOB 20:27 → OBSVTOIN 20:27 → INTOOBSV 20:27 → VM.MS 21:07 → OBSVTOIN 21:07 → UNDODISIN 03-13 14:15
PROVIDERS: ADMIT Family Medicine; ATTEND Family Medicine
DX: M84.48XA Pathological fracture, other site, initial encounter for fracture (principal); D72.829 Elevated white blood cell count, unspecified; N12 Tubulo-interstitial nephritis, not specified as acute or chronic; E86.0 Dehydration; M48.56XA Collapsed vertebra, not elsewhere classified, lumbar region, initial encounter for fracture; R58 Hemorrhage, not elsewhere classified; D72.0 Genetic anomalies of leukocytes; N20.0 Calculus of kidney; M79.7 Fibromyalgia; F31.9 Bipolar disorder, unspecified; E03.9 Hypothyroidism, unspecified; K59.00 Constipation, unspecified; E53.8 Deficiency of other specified B group vitamins; F41.8 Other specified anxiety disorders; F17.200 Nicotine dependence, unspecified, uncomplicated; Z88.2 Allergy status to sulfonamides; Z88.8 Allergy status to other drugs, medicaments and biological substances; Z79.899 Other long term (current) drug therapy
CPT/HCPCS: 36415; 74176; 80053; 81001; 83690; 85025; 86140; 87086; 87088; 94640; 96361; 96365; 96375; 96376; 99285 ×2; A9270; J1885; J2270 ×2; J2543; J7030 ×2; J7050; 72148; 87040; 97116-GP; 97161-GP

== ENCOUNTER 2017-03-20 07:58 | Emergency (ER) | payer MEDICARE, MEDICAID ==
[2017-03-20] MEDS ORDERED: HYDROmorphone 1 MG/ML Syringe IVPUSH ONE (08:33)
[2017-03-20] MEDS ORDERED: HYDROmorphone 1 MG/ML Syringe IM ONE (08:42)
[2017-03-20 09:17] LABS: CHLORIDE,CL 109 mmol/L (98-107); SODIUM,NA 142 mmol/L (136-145)
[2017-03-20] MEDS ORDERED: LORazepam 1 MG Tab PO ONE (09:48)
--- NOTE | 2017-03-20 10:09 | EDM.PDOC ---
ED HPI GENERAL MEDICAL PROBLEM - General Chief Complaint: Back Pain or Injury Time Seen by Provider: 03/20/17 08:05 Source of Information: Reports: Patient History Limitations: Reports: Uncooperative - History of Present Illness INITIAL COMMENTS - FREE TEXT/NARRATIVE: Pt. was admitted to our facility on 03/10/17 with mild L2 compression fracture and was discharged on 03/13/17. Pt. states that she was unable to eat or drink at home following discharge and was unable to ambulate to the bathroom, and states that she urinated on the floor as she was unable to get up to the bathroom. Pt. was prescribed Clarkrange 10/325mg #28 on 03/13. She initially stated that she has been out of her Clarkrange since yesterday, but later states that she did not take her pain medication, because she "doesn't want to be an addict." Pt. denies any new trauma to the area. She states that the pain is located in the same area as when she was in hospital. She denies difficulty with incontinence or saddle anesthesia. EMS was summoned to transport pt. to ER. She requested IV dilaudid and was upset with EMS when she was not given any. Onset: Today Location: Reports: Back Quality: Reports: Ache, Throbbing Severity: Severe Improves with: Reports: Medication Worsens with: Reports: Movement Lower Back Pain Score (Numeric/FACES): 10 - Related Data Allergies Allergy/AdvReac Type Severity Reaction Status Date / Time codeine Allergy Rash Verified 03/20/17 08:05 Sulfa (Sulfonamide Allergy Rash Verified 03/20/17 08:05 Antibiotics) Home Meds: Home Meds ClonazePAM [KlonoPIN] 2 mg PO BID 08/19/13 [History] Gabapentin [Neurontin] 600 mg PO TID 08/19/13 [History] Levothyroxine 25 mcg PO ACBRK 08/19/13 [History] Topiramate [Topamax] 400 mg PO BEDTIME 08/19/13 [History] Venlafaxine [Effexor] 100 mg PO BID 08/19/13 [History] traMADol HCl [Ultram] 100 mg PO QID PRN 08/19/13 [History] Cyanocobalamin (Vitamin B-12) [Vitamin B-12] 1,000 mcg PO DAILY 08/04/16 [ History] Fluticasone Propionate [Flonase] 2 sprays NASBOTH DAILY 08/04/16 [History] Omeprazole Magnesium [Prilosec Otc] 20 mg PO DAILY 08/04/16 [History] Pregabalin [Lyrica] 100 mg PO BID 08/04/16 [History] traZODone HCl [Trazodone HCl] 50 mg PO BEDTIME 08/04/16 [History] Hydrochlorothiazide 25 mg PO DAILY 02/14/17 [History] Norgestrel-Ethinyl Estradiol [Cryselle-28 Tablet] 1 each PO DAILY 02/14/17 [ History] Tamsulosin HCl [Flomax] 0.4 mg PO DAILY 5 Days #5 cap.er.24h 02/14/17 [Rx] Sennosides [Senokot] 8.6 mg PO DAILY PRN 03/10/17 [History] Tetrahydrz/Dext 70/Peg 400/Pvp [Visine Advanced Eye Drop] 15 ml OP BID PRN 03/10 [History] traMADol HCl [Tramadol HCl] 03/10/17 [History] Cyclobenzaprine [Flexeril] 10 mg PO TID PRN #21 tablet 03/13/17 [Rx] Hydrocodone/Acetaminophen [Clarkrange 10-325 Tablet] 1 each PO Q6HR #28 tablet [Rx] Nicotine [Habitrol] 21 mg TRDERM DAILY patch 03/13/17 [Rx] Past Medical History HEENT History: Reports: Allergic Rhinitis Gastrointestinal History: Reports: Chronic Constipation, GERD Genitourinary History: Reports: Renal Calculus TRANSITION MGR History: Reports: Other (See Below) Other OB/BYN History: menorrhagia Musculoskeletal History: Reports: Fibromyalgia Other Musculoskeletal History: family history of polymositis Neurological History: Reports: Migraines, Other (See Below) Other Neuro History: family history of charcot liam tooth Psychiatric History: Reports: Anxiety, Depression Endocrine/Metabolic History: Reports: Hypothyroidism Hematologic History: Reports: B12 Deficiency - Infectious Disease History Infectious Disease History: Reports: Hepatitis C - Past Surgical History GI Surgical History: Reports: Other (See Below) Other GI Surgeries/Procedures: splenectomy Dermatological Surgical History: Reports: None Social & Family History - Family History Family Medical History: Noncontributory - Tobacco Use Smoking Status *Q: Current Every Day Smoker Years of Tobacco use: 32 Packs/Tins Daily: 0.5 Used Tobacco, but Quit: No - Caffeine Use Caffeine Use: Reports: None - Alcohol Use Days Per Week of Alcohol Use: 0 - Recreational Drug Use Recreational Drug Use: No ED ROS GENERAL - Review of Systems Review Of Systems: See Below Constitutional: Reports: Decreased Appetite HEENT: Reports: No Symptoms Respiratory: Reports: No Symptoms Cardiovascular: Reports: No Symptoms Endocrine: Reports: No Symptoms GI/Abdominal: Reports: No Symptoms : Reports: No Symptoms Musculoskeletal: Reports: No Symptoms Skin: Reports: No Symptoms Neurological: Reports: No Symptoms Psychiatric: Reports: No Symptoms Hematologic/Lymphatic: Reports: No Symptoms Immunologic: Reports: No Symptoms ED EXAM,LOWER BACK PAIN/INJURY - Physical Exam Exam: See Below Exam Limited By: No Limitations General Appearance: Alert, WD/WN, No Apparent Distress Respiratory/Chest: No Respiratory Distress, Lungs Clear, Normal Breath Sounds, No Accessory Muscle Use, Chest Non-Tender Cardiovascular: Normal Peripheral Pulses, Regular Rate, Rhythm, No JVD, No Murmur GI/Abdominal: Normal Bowel Sounds, Soft, Non-Tender, No Distention Rectal (Female) Exam: Deferred Back Exam: Normal Inspection, Muscle Spasm, Other (lumbar ) Extremities: Normal Inspection, Normal Range of Motion, Non-Tender, No Pedal Edema, Normal Capillary Refill Neurological: Alert, Normal Dorsiflexion, CN II-XII Intact, Normal Plantar Flexion, Oriented x 3 DTR - Lower Extremities: 2+: Knee (R), Knee (L) Psychiatric: Anxious, Tearful Skin Exam: Warm, Dry, Intact Course - Vital Signs Last Recorded V/S: Last Vital Signs Temp 35.7 C 03/20/17 07:58 Pulse 73 03/20/17 07:58 Resp 20 03/20/17 07:58 BP 134/80 03/20/17 07:58 Pulse Ox 99 03/20/17 07:58 - Orders/Labs/Meds Labs: Laboratory Tests 03/20/17 03/20/17 Range/Units 08:51 08:51 WBC 10.1 H (4.0-10.0) x10^3/uL RBC 4.47 (4.00-5.50) x10^6/uL Hgb 12.8 (12.0-16.0) g/dL Hct 38.9 (33.0-47.0) % MCV 87.0 (78.0-93.0) fL MCH 28.6 (26.0-32.0) pg MCHC 32.9 (32.0-36.0) g/dL RDW Coeff of Bisi 15.7 H (10.0-15.0) % Plt Count 508 H (130-400) x10^3/uL Neut % (Auto) 62.6 (50.0-80.0) % Lymph % (Auto) 29.8 (25.0-50.0) % [place] % (Auto) 6.3 (2.0-11.0) % Eos % (Auto) 0.8 (0.0-4.0) % Baso % (Auto) 0.5 (0.2-1.2) % Sodium 142 (136-145) mmol/L Potassium 3.2 L (3.5-5.1) mmol/L Chloride 109 H (98-107) mmol/L Carbon Dioxide 25 (21-32) mmol/L BUN 8 (7-18) mg/dL Creatinine 0.9 (0.55-1.02) mg/dL Est Cr Clr Drug Dosing 67.29 mL/min Estimated GFR (MDRD) > 60 Glucose 138 H (74-106) mg/dL Calcium 9.2 (8.5-10.1) mg/dL Corrected Calcium 9.92 (8.5-10.1) mg/dL Total Bilirubin 0.3 (0.2-1.0) mg/dL AST 30 (15-37) U/L ALT 28 (14-59) U/L Alkaline Phosphatase 125 H (46-116) U/L C-Reactive Protein 0.6 (<=0.9) mg/dL Total Protein 8.4 H (6.4-8.2) g/dL Albumin 3.1 L (3.4-5.0) g/dL Globulin 5.3 Albumin/Globulin Ratio 0.58 Meds: Medications Discontinued Medications Generic Name Dose Route Start Last Admin Trade Name Freq PRN Reason Stop Dose Admin Hydromorphone HCl 1 mg 03/20/17 08:42 03/20/17 08:54 Dilaudid IM 03/20/17 08:43 1 mg ONETIME ONE Administration Lorazepam 1 mg 03/20/17 09:48 Ativan PO 03/20/17 09:49 ONETIME ONE - Re-Assessments/Exams Free Text/Narrative Re-Assessment/Exam: 03/20/17 10:57 Pt. was given 1 mg of dilaudid IM. Pt. reported significant improvement in discomfort. Pt. was able to ambulate without difficulty. She was very anxious and requested admission. Pt. was given ativan 1mg PO. She was able to ambulate to the transport van to bring her home. Departure - Departure Time of Disposition: Disposition: Home, Self-Care 01 Condition: Fair Clinical Impression: L2 vertebral fracture, Fracture of thoracic spine - Discharge Information Instructions: Back Pain, Adult, [id number] Referrals: Gilbert Jordan MD [Primary Care Provider] - Forms: ED Department Discharge Additional Instructions: Clarkrange 10/325mg 1 tablet Stop tizanidine Start flexeril 10mg three times daily Follow-up in clinic on Friday - Problem List & Annotations (1) L2 vertebral fracture SNOMED Code(s): 938235320 Code(s): S32.029A - UNSP FRACTURE OF SECOND LUMBAR VERTEBRA, INIT FOR CLOS FX Status: Acute Current Visit: Yes - Assessment/Plan Assessment:: acute on chronic low back pain Plan: Clarkrange 10/325mg 1 tablet Stop tizanidine Start flexeril 10mg three times daily Follow-up in clinic on Friday
== END 2017-03-20 10:27 | disposition home or self-care (01) ==
LOC: VM.ED 07:58
DX: S32.029A Unspecified fracture of second lumbar vertebra, initial encounter for closed fracture (principal); S22.009A Unspecified fracture of unspecified thoracic vertebra, initial encounter for closed fracture; F17.210 Nicotine dependence, cigarettes, uncomplicated; Z88.5 Allergy status to narcotic agent; Z88.2 Allergy status to sulfonamides; Z79.899 Other long term (current) drug therapy; X58.XXXA Exposure to other specified factors, initial encounter
CPT/HCPCS: 36415; 80053; 85025; 86140; 96372; 99284; A9270; J1170

== ENCOUNTER 2019-01-03 22:55 | Emergency (ER) | payer MEDICARE, MEDICAID ==
--- NOTE | 2019-01-03 23:33 | EDM.PDOCBH ---
ED HPI GENERAL MEDICAL PROBLEM - General Chief Complaint: Behavioral/Psych Stated Complaint: I want to Time Seen by Provider: 01/03/19 23:20 Source of Information: Reports: Patient History Limitations: Reports: No Limitations - History of Present Illness INITIAL COMMENTS - FREE TEXT/NARRATIVE: Patient states that earlier today approximately about 6:30 she called the crisis help line and they told her to come to the ER she then waited till now to get a ride from her friend to the period she states that she has planned to overdose was never carried out she has thought about it many times but never done it. She has been hospitalized numerous times last time was back in June for about a week. She states today that she did take 3 extra gabapentin this morning she is on daily dose of about 1800. She denies any homicidal ideations audiovisual hallucinations no insomnia no anger outburst no mood swings she has no other medical complaints at this time she states she has had multiple times where she will kill herself throughout her lifetime Back and Generalized Pain Score (Numeric/FACES): 9 - Related Data Allergies Allergy/AdvReac Type Severity Reaction Status Date / Time Sulfa (Sulfonamide Allergy Intermediate Hives Verified 01/04/19 03:58 Antibiotics) codeine Allergy Hives Verified 01/04/19 03:58 Home Meds: Home Meds ClonazePAM [KlonoPIN] 2 mg PO BID 08/19/13 [History] Gabapentin [Neurontin] 600 mg PO TID 08/19/13 [History] Topiramate [Topamax] 100 mg PO BID 08/19/13 [History] traMADol HCl [Ultram] 50 mg PO QID PRN 08/19/13 [History] Cyanocobalamin (Vitamin B-12) [Vitamin B-12] 1,000 mcg PO DAILY 08/04/16 [ History] Fluticasone Propionate [Flonase] 2 sprays NASBOTH DAILY 08/04/16 [History] Omeprazole Magnesium [Prilosec Otc] 20 mg PO DAILY 08/04/16 [History] traZODone HCl [Trazodone HCl] 50 mg PO BEDTIME 08/04/16 [History] Tetrahydrz/Dext 70/Peg 400/Pvp [Visine Advanced Eye Drop] 15 ml OP BID PRN 03/10 [History] Venlafaxine [Effexor XR] 75 mg PO DAILY 01/04/19 [History] Venlafaxine [Effexor XR] 150 mg PO DAILY 01/04/19 [History] Past Medical History HEENT History: Reports: Allergic Rhinitis Gastrointestinal History: Reports: Chronic Constipation, GERD Genitourinary History: Reports: Renal Calculus DIRECTOR MACHINE History: Reports: Other (See Below) Other DIRECTOR MACHINE History: menorrhagia Musculoskeletal History: Reports: Fibromyalgia Other Musculoskeletal History: family history of polymositis Neurological History: Reports: Migraines, Other (See Below) Other Neuro History: family history of charcot liam tooth Psychiatric History: Reports: Anxiety, Depression Endocrine/Metabolic History: Reports: Hypothyroidism Hematologic History: Reports: B12 Deficiency - Infectious Disease History Infectious Disease History: Reports: Hepatitis C - Past Surgical History HEENT Surgical History: Reports: None GI Surgical History: Reports: Other (See Below) Other GI Surgeries/Procedures: splenectomy Musculoskeletal Surgical History: Reports: None Dermatological Surgical History: Reports: None Social & Family History - Family History Family Medical History: Noncontributory - Caffeine Use Caffeine Use: Reports: Coffee, Soda ED ROS GENERAL - Review of Systems Review Of Systems: See Below Constitutional: Reports: No Symptoms HEENT: Reports: No Symptoms Respiratory: Reports: No Symptoms Cardiovascular: Reports: No Symptoms Endocrine: Reports: No Symptoms GI/Abdominal: Reports: No Symptoms : Reports: No Symptoms Musculoskeletal: Reports: No Symptoms Skin: Reports: No Symptoms Neurological: Reports: No Symptoms Psychiatric: Reports: Depression, Suicidal Ideation. Denies: Agitation, Anxiety , Confusion, Hallucinations, Homicidal Ideation, Mood Lability Hematologic/Lymphatic: Reports: No Symptoms Immunologic: Reports: No Symptoms ED EXAM, BEHAVIORAL HEALTH - Physical Exam Exam: See Below Exam Limited By: No Limitations General Appearance: Alert, WD/WN, No Apparent Distress Eye Exam: Bilateral Eye: EOMI (Pupils equal round reactive light accommodation) Ears: Normal External Exam, Normal Canal, Hearing Grossly Normal, Normal TMs Nose: Normal Inspection, Normal Mucosa Throat/Mouth: Normal Inspection, Normal Lips, Normal Teeth, Normal Gums, Normal Oropharynx, Normal Voice, No Airway Compromise Head: Atraumatic, Normocephalic Neck: Normal Inspection, Supple, Non-Tender, Full Range of Motion Respiratory/Chest: No Respiratory Distress, Lungs Clear, Normal Breath Sounds, No Accessory Muscle Use Cardiovascular: Normal Peripheral Pulses, Regular Rate, Rhythm, No Edema GI/Abdominal: Normal Bowel Sounds, Soft, Non-Tender, No Organomegaly Back Exam: Full Range of Motion Extremities: Normal Inspection, Normal Range of Motion, Non-Tender, No Pedal Edema, Normal Capillary Refill Neurological: Alert, Normal Mood/Affect, CN II-XII Intact, Normal Cognition, No Motor/Sensory Deficits, Oriented x 3 Psychiatric: Alert, Normal Affect, Normal Cognition, Normal Mood, Oriented. No : Depressed Mood, Flat Affect, Incoherent, Restless, Tearful, Inattentive, Non- Communicative Skin Exam: Warm, Dry, Intact, Normal color, No rash COURSE, BEHAVIORAL HEALTH COMP - Course Vital Signs: Last Vital Signs Temp 36.2 C 01/03/19 23:00 Pulse 80 01/03/19 23:00 Resp 14 01/03/19 23:00 BP 117/69 01/03/19 23:00 Pulse Ox 97 01/03/19 23:00 Labs were ordered urine was collected for UDS psych will be called when labs are done for evaluation [facility] was called with a screening For call back Susanna and Shikha at midnight state they will evaluate the patient over the phone Patient is positive for meth and THC patient has no clinical signs or symptoms of intoxication and has a potassium at 2.6 Per Susanna at crisis line after speaking with the patient on the phone she decides to make her inpatient at the crisis Center in [place] she states to have the patient transported via law enforcement 00 35 Orders, Labs, Meds: Active Orders 24 hr Category Date Time Status SALICYLATE [REF] Stat Lab 01/03/19 23:34 Received Laboratory Tests 01/03/19 01/03/19 01/03/19 Range/Units 23:04 23:34 23:34 WBC 13.0 H (4.0-10.0) x10^3/uL RBC 4.86 (4.00-5.50) x10^6/uL Hgb 13.8 (12.0-16.0) g/dL Hct 41.5 (33.0-47.0) % MCV 85.4 (78.0-93.0) fL MCH 28.4 (26.0-32.0) pg MCHC 33.3 (32.0-36.0) g/dL RDW Coeff of Bisi 17.4 H (10.0-15.0) % Plt Count 413 H D (130-400) x10^3/uL Neut % (Auto) 43.2 L (50.0-80.0) % Lymph % (Auto) 46.0 (25.0-50.0) % [place] % (Auto) 7.8 (2.0-11.0) % Eos % (Auto) 2.8 (0.0-4.0) % Baso % (Auto) 0.2 (0.2-1.2) % Sodium 141 (136-145) mmol/L Potassium 2.6 L* (3.5-5.1) mmol/L Chloride 106 (98-107) mmol/L Carbon Dioxide 23 (21-32) mmol/L Anion Gap 14.6 (10-20) mmol/L BUN 14 (7-18) mg/dL Creatinine 1.1 H (0.55-1.02) mg/dL Est Cr Clr Drug Dosing TNP Estimated GFR (MDRD) 52 Glucose 125 H (74-106) mg/dL Calcium 8.6 (8.5-10.1) mg/dL Urine Opiates Screen Negative (NEGATIVE) Ur Buprenorphine Scrn Negative (NEGATIVE) Ur Oxycodone Screen Negative (NEGATIVE) Ur EDDP (Meth Metab) Negative (NEGATIVE) Urine Methadone Screen Negative (NEGATIVE) Acetaminophen 0 L (10-30) ug/ml Ur Barbiturates Screen Negative (NEGATIVE) Ur Tricyclics Screen Positive H (NEGATIVE) Ur Phencyclidine Scrn Negative (NEGATIVE) Ur Amphetamine Screen Positive H (NEGATIVE) U Methamphetamines Scrn Positive H (NEGATIVE) Urine MDMA Screen Negative (NEGATIVE) U Benzodiazepines Scrn Negative (NEGATIVE) U Cocaine Metab Screen Negative (NEGATIVE) U Marijuana (THC) Screen Negative (NEGATIVE) Ethyl Alcohol < 3 (0-3) mg/dL Medications Discontinued Medications Generic Name Dose Route Start Last Admin Trade Name Freq PRN Reason Stop Dose Admin Magnesium Oxide 400 mg 01/04/19 00:04 01/04/19 00:36 Magnesium Oxide PO 01/04/19 00:05 400 mg ONETIME ONE Administration Potassium Chloride 40 meq 01/04/19 00:05 01/04/19 00:36 Klor-Con M20 PO 01/04/19 00:06 40 meq ONETIME ONE Administration Departure - Departure Time of Disposition: 00:35 Disposition: DC/Tfer to Psych Hosp/Unit 65 Condition: Good Clinical Impression: Polysubstance abuse, Hypokalemia, Suicidal ideation - Discharge Information *PRESCRIPTION DRUG MONITORING PROGRAM REVIEWED*: No *COPY OF PRESCRIPTION DRUG MONITORING REPORT IN PATIENT JUANITA: No Referrals: Gilbert Jordan MD [Primary Care Provider] - Forms: ED Department Discharge Additional Instructions: Patient is to go inpatient [place] at [address] [facility] Patient is to take daily medications as directed per med list Order for inpatient medication Tramadol 50 mg 1 tab by mouth every 6-8 hours for pain - Problem List & Annotations (1) Suicidal ideation SNOMED Code(s): 7759773 Code(s): R45.851 - SUICIDAL IDEATIONS Status: Acute (2) Polysubstance abuse SNOMED Code(s): 885193025 Code(s): F19.10 - OTHER PSYCHOACTIVE SUBSTANCE ABUSE, UNCOMPLICATED Status : Acute (3) Hypokalemia SNOMED Code(s): 71971420 Code(s): E87.6 - HYPOKALEMIA Status: Acute - My Orders Last 24 Hours: My Active Orders 01/03/19 23:34 SALICYLATE [REF] Stat - Assessment/Plan Last 24 Hours: My Active Orders 01/03/19 23:34 SALICYLATE [REF] Stat
[2019-01-03 23:59] LABS: CHLORIDE,CL 106 mmol/L (98-107); SODIUM,NA 141 mmol/L (136-145)
[2019-01-04 00:03] LABS: ACETAMINOPHEN 0 ug/ml (10-30); ANION GAP 14.6 mmol/L (10-20)
[2019-01-04] MEDS ORDERED: Magnesium Oxide 400 MG Tab PO ONE (00:04)
[2019-01-04] MEDS ORDERED: Potassium Chloride 20 MEQ Tab.ER PO ONE (00:05)
[2019-01-04 00:06] LABS: BARBITURATE SCREEN,URINE NEGATIVE (NEGATIVE); BENZODIAZEPINES SCREEN,URINE NEGATIVE (NEGATIVE); EDDP,URINE SCREEN NEGATIVE (NEGATIVE); METHAMPHETAMINE SCREEN, URINE POSITIVE (NEGATIVE); TCA SCREEN,URINE POSITIVE (NEGATIVE); THC SCREEN,URINE 50 NG/ML NEGATIVE (NEGATIVE)
== END 2019-01-04 01:25 ==
LOC: VM.ED 22:55
DX: F32.9 Major depressive disorder, single episode, unspecified (principal); E87.6 Hypokalemia; F19.10 Other psychoactive substance abuse, uncomplicated; K21.9 Gastro-esophageal reflux disease without esophagitis; F41.9 Anxiety disorder, unspecified; E03.9 Hypothyroidism, unspecified; Z88.2 Allergy status to sulfonamides; Z88.5 Allergy status to narcotic agent; Z79.899 Other long term (current) drug therapy; Z87.442 Personal history of urinary calculi
CPT/HCPCS: 36415; 80048; 80305; 85025; 99284; 99285; A9270; G0480

== ENCOUNTER 2019-02-25 15:15 | Emergency (ER) | payer MEDICARE, MEDICAID ==
--- NOTE | 2019-02-25 15:37 | EDM.PDOC ---
ED HPI GENERAL MEDICAL PROBLEM - General Stated Complaint: FALL Time Seen by Provider: 02/25/19 15:37 Source of Information: Reports: Patient History Limitations: Reports: No Limitations - History of Present Illness INITIAL COMMENTS - FREE TEXT/NARRATIVE: S/P fall onto left side yesterday going down stairs. PT has been walking on extremity. States it had no pain yesterday but today has pain in left knee. Onset Date: 02/24/19 Onset Time: 18:00 Left Leg Pain Score (Numeric/FACES): 8 - Related Data Allergies Allergy/AdvReac Type Severity Reaction Status Date / Time Sulfa (Sulfonamide Allergy Intermediate Hives Verified 02/25/19 15:40 Antibiotics) codeine Allergy Hives Verified 02/25/19 15:40 Home Meds: Home Meds ClonazePAM [KlonoPIN] 2 mg PO BID 08/19/13 [History] Gabapentin [Neurontin] 600 mg PO TID 08/19/13 [History] Topiramate [Topamax] 100 mg PO BID 08/19/13 [History] traMADol HCl [Ultram] 50 mg PO QID PRN 08/19/13 [History] Cyanocobalamin (Vitamin B-12) [Vitamin B-12] 1,000 mcg PO DAILY 08/04/16 [ History] Fluticasone Propionate [Flonase] 2 sprays NASBOTH DAILY 08/04/16 [History] Omeprazole Magnesium [Prilosec Otc] 20 mg PO DAILY 08/04/16 [History] traZODone HCl [Trazodone HCl] 50 mg PO BEDTIME 08/04/16 [History] Tetrahydrz/Dext 70/Peg 400/Pvp [Visine Advanced Eye Drop] 15 ml OP BID PRN 03/10 [History] Venlafaxine [Effexor XR] 75 mg PO DAILY 01/04/19 [History] Venlafaxine [Effexor XR] 150 mg PO DAILY 01/04/19 [History] Prazosin [Minpress] 1 mg BEDTIME 02/25/19 [History] Past Medical History HEENT History: Reports: Allergic Rhinitis Other HEENT History: Dental caries. Family history of Charcot Sofy Tooth Respiratory History: Reports: Other (See Below) Other Respiratory History: Allergic rhinitis Gastrointestinal History: Reports: Chronic Constipation, GERD Genitourinary History: Reports: Renal Calculus ARCHITECT IN TRAINING History: Reports: Other (See Below) Other ARCHITECT IN TRAINING History: menorrhagia Musculoskeletal History: Reports: Fibromyalgia Other Musculoskeletal History: family history of polymositis Neurological History: Reports: Migraines, Other (See Below) Other Neuro History: family history of charcot sofy tooth Psychiatric History: Reports: Anxiety, Depression Other Psychiatric History: Tobacco use disorder; Personality disorder; Opioid dependence Endocrine/Metabolic History: Reports: Hypothyroidism Hematologic History: Reports: B12 Deficiency - Infectious Disease History Infectious Disease History: Reports: Hepatitis C - Past Surgical History HEENT Surgical History: Reports: None GI Surgical History: Reports: Other (See Below) Other GI Surgeries/Procedures: splenectomy Musculoskeletal Surgical History: Reports: None Dermatological Surgical History: Reports: None Social & Family History - Family History Family Medical History: Noncontributory - Caffeine Use Caffeine Use: Reports: Coffee, Soda Review of Systems - Review of Systems Review Of Systems: See Below Constitutional: Reports: No Symptoms Eyes: Reports: No Symptoms Ears: Reports: No Symptoms Nose: Reports: No Symptoms Mouth/Throat: Reports: No Symptoms Respiratory: Reports: No Symptoms Cardiovascular: Reports: No Symptoms GI/Abdominal: Reports: No Symptoms Genitourinary: Reports: No Symptoms Musculoskeletal: Reports: Leg Pain, Other (elft knee pain left lower leg pain. ) ED EXAM, GENERAL - Physical Exam Exam: See Below Exam Limited By: No Limitations General Appearance: Alert, WD/WN Eye Exam: Bilateral Eye: Normal Inspection Head: Atraumatic, Normocephalic Neck: Normal Inspection, Supple, Non-Tender Respiratory/Chest: No Respiratory Distress, Lungs Clear Cardiovascular: Normal Peripheral Pulses, Regular Rate, Rhythm GI/Abdominal: Normal Bowel Sounds Extremities: Normal Inspection, Other (pt c/o left knee pain, left tib/fib pain , no deformity, pt able to ambulate, from left leg. ) Neurological: Alert, Oriented Psychiatric: Normal Affect, Normal Mood Skin Exam: Warm, Dry, Intact Course - Vital Signs Last Recorded V/S: Last Vital Signs Temp 36.9 C 02/25/19 15:20 Pulse 83 02/25/19 15:20 Resp 16 02/25/19 15:20 BP 107/86 02/25/19 15:20 Pulse Ox 97 02/25/19 15:20 - Orders/Labs/Meds Meds: Medications Discontinued Medications Generic Name Dose Route Start Last Admin Trade Name Brianna PRN Reason Stop Dose Admin Ketorolac Tromethamine 30 mg 02/25/19 16:15 02/25/19 16:25 Toradol IM 02/25/19 16:16 30 mg ONETIME ONE Administration Departure - Departure Time of Disposition: 17:01 Disposition: Home, Self-Care 01 Clinical Impression: Left knee pain - Discharge Information Instructions: Knee Pain, Adult, [id number] Referrals: Gilbert Jordan MD [Primary Care Provider] -
[2019-02-25] MEDS ORDERED: Ketorolac 30 MG/ML SDV IM ONE (16:15)
--- NOTE | 2019-02-25 16:51 | CR ---
[id number] RAD/RAD Knee Left 3V EXAM: RAD Knee Left 3V CLINICAL DATA: TRAUMA COMPARISON: NO PREVIOUS SIMILAR EXAM IS AVAILABLE. FINDINGS: There are mild degenerative changes No fracture or dislocation is seen. There is no radiopaque foreign body in the soft tissues. There is no air in the soft tissues. There is no cortical thickening or periosteal reaction either. IMPRESSION: MILD DEGENERATIVE CHANGES Néstor Sykes MD 02/25/19 [phone] Thank you for allowing us to participate in the care of your patient.
--- NOTE | 2019-02-25 16:51 | CR ---
[id number] RAD/RAD Tibia Fibula Left EXAM: RAD Tibia Fibula Left CLINICAL DATA: TRAUMA COMPARISON: NO PREVIOUS SIMILAR EXAM IS AVAILABLE. FINDINGS: No fracture or dislocation is seen. There is no radiopaque foreign body in the soft tissues. There is no air in the soft tissues. There is no cortical thickening or periosteal reaction either. IMPRESSION: NEGATIVE PLAIN FILM EXAM. Néstor Sykes MD 02/25/19 [id number] Thank you for allowing us to participate in the care of your patient.
== END 2019-02-25 17:10 | disposition home or self-care (01) ==
LOC: VM.ED 15:15
DX: M25.562 Pain in left knee (principal); M79.662 Pain in left lower leg; K21.9 Gastro-esophageal reflux disease without esophagitis; F41.9 Anxiety disorder, unspecified; F32.9 Major depressive disorder, single episode, unspecified; Z79.899 Other long term (current) drug therapy; Z88.2 Allergy status to sulfonamides; Z88.5 Allergy status to narcotic agent; Z87.891 Personal history of nicotine dependence; W10.9XXA Fall (on) (from) unspecified stairs and steps, initial encounter
CPT/HCPCS: 73562; 73590; 96372; 99283; J1885

== ENCOUNTER 2019-09-09 10:58 | Emergency (ER) | payer MEDICARE, MEDICAID, OTHER ==
[2019-09-09] MEDS ORDERED: Lactated Ringers 1,000 ML IV ONE (11:08)
[2019-09-09] MEDS ORDERED: Ondansetron 4 MG/2 ML SDV IV ONE (11:08)
[2019-09-09] MEDS ORDERED: LORazepam 2 MG/ML SDV IVPUSH ONE (11:29)
[2019-09-09] MEDS ORDERED: Doxycycline 100 MG Cap PO ONE (11:29)
[2019-09-09] MEDS ORDERED: HYDROmorphone 1 MG/ML Syringe IVPUSH ONE (11:29)
[2019-09-09] MEDS ORDERED: Bupivacaine 0.5%/EPINEPHrine 1:200,000 30 ML SDV INJECT ONE (11:30)
[2019-09-09] MEDS ORDERED: Lidocaine 1% with EPINEPHrine 1:100,000 20 ML MDV INFILT ONE (11:30)
--- NOTE | 2019-09-09 12:05 | EDM.PDOC ---
ED HPI GENERAL MEDICAL PROBLEM - General Stated Complaint: PNEUMONIA Time Seen by Provider: 09/09/19 11:30 Source of Information: Reports: Patient History Limitations: Reports: No Limitations - History of Present Illness INITIAL COMMENTS - FREE TEXT/NARRATIVE: Patient comes emergency department today with complaints of cough congestion and a questionable STI in her groin. For the past 3 to 5 days the patient has had some shortness of breath cough that is causes some pain in her chest when she coughs. When she is not coughing she does not have any pain. The pain in her chest is sharp shooting stabbing when she is coughing. She has minimal shortness of breath and congestion. She feels like she has pneumonia like she has in the past. She is an active smoker but is trying to decrease and actually has not smoked for the past couple of days. She has had subjective fever and chills. Some nausea no vomiting. No abdominal pain no diarrhea. No hematuria dysuria or urinary frequency. She has been trying to isolate herself at home as much as possible and is only been leaving for essential purchases. She also complains of a possible STI in the left groin. She noted 2 days ago she had an area in her left groin between her labia and her leg that became red hot swollen is draining some foul material. Chest Pain Score (Numeric/FACES): 6 Lower Back Pain Score (Numeric/FACES): 6 - Related Data Allergies Allergy/AdvReac Type Severity Reaction Status Date / Time Sulfa (Sulfonamide Allergy Intermediate Hives Verified 09/09/19 12:27 Antibiotics) codeine Allergy Hives Verified 09/09/19 12:27 Home Meds: Home Meds ClonazePAM [KlonoPIN] 2 mg PO BID 08/19/13 [History] Topiramate [Topamax] 100 mg PO BID 08/19/13 [History] traMADol HCl [Ultram] 50 mg PO QID PRN 08/19/13 [History] Cyanocobalamin (Vitamin B-12) [Vitamin B-12] 1,000 mcg PO DAILY 08/04/16 [ History] Fluticasone Propionate [Flonase] 2 sprays NASBOTH DAILY 08/04/16 [History] Omeprazole Magnesium [Prilosec Otc] 20 mg PO DAILY 08/04/16 [History] traZODone HCl [Trazodone HCl] 75 mg PO BEDTIME 08/04/16 [History] Venlafaxine [Effexor XR] 75 mg PO DAILY 01/04/19 [History] Venlafaxine [Effexor XR] 150 mg PO DAILY 01/04/19 [History] Albuterol [Proventil HFA] 2 puff INH Q4H PRN #1 inhaler 09/09/19 [Rx] Doxycycline [Vibramycin] 100 mg PO BID #20 cap 09/09/19 [Rx] Hydrocodone/Acetaminophen [Hydrocodon-Acetaminophen 5-325] 1 each PO Q6HR #6 tablet 09/09/19 [Rx] Past Medical History HEENT History: Reports: Allergic Rhinitis Other HEENT History: Dental caries. 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 SALES CONSULTANT History: Reports: Other (See Below) Other COSMETIC SALES CONSULTANT History: menorrhagia Musculoskeletal History: Reports: Fibromyalgia Other Musculoskeletal History: family history of polymositis Neurological History: Reports: Migraines, Other (See Below) Other Neuro History: family history of charcot sofy tooth Psychiatric History: Reports: Anxiety, Depression Other Psychiatric History: Tobacco use disorder; Personality disorder; Opioid dependence Endocrine/Metabolic History: Reports: Hypothyroidism Hematologic History: Reports: B12 Deficiency - Infectious Disease History Infectious Disease History: Reports: Hepatitis C - Past Surgical History HEENT Surgical History: Reports: None GI Surgical History: Reports: Other (See Below) Other GI Surgeries/Procedures: splenectomy Musculoskeletal Surgical History: Reports: None Dermatological Surgical History: Reports: None Social & Family History - Family History Family Medical History: Noncontributory - Caffeine Use Caffeine Use: Reports: Coffee, Soda ED ROS GENERAL - Review of Systems Review Of Systems: Comprehensive ROS is negative, except as noted in HPI. ED EXAM, GENERAL - Physical Exam Exam: See Below Exam Limited By: No Limitations General Appearance: Alert, WD/WN, No Apparent Distress Eye Exam: Bilateral Eye: EOMI Ears: Normal External Exam, Normal TMs Nose: Normal Inspection Throat/Mouth: Normal Teeth, Normal Gums, Normal Oropharynx, Normal Voice, No Airway Compromise. No: Normal Inspection (Oral mucosa is very dry. ), Normal Lips (dry and cracked. ) Head: Atraumatic, Normocephalic Neck: Normal Inspection, Supple, Non-Tender, Full Range of Motion Respiratory/Chest: No Respiratory Distress, No Accessory Muscle Use, Chest Non- Tender, Decreased Breath Sounds (bases bilaterally ), Wheezing (expiratory mild wheezing bilaterally. ). No: Crackles, Rales, Rhonchi Cardiovascular: Normal Peripheral Pulses, Regular Rate, Rhythm Peripheral Pulses: 2+: Radial (L), Radial (R), Posterior Tibial (L), Posterior Tibial (R), Dorsalis Pedis (L), Dorsalis Pedis (R) GI/Abdominal: Normal Bowel Sounds, Soft, Non-Tender (Female) Exam: Deferred Rectal (Female) Exam: Deferred Back Exam: Normal Inspection, Full Range of Motion Extremities: Normal Inspection, Normal Range of Motion, No Pedal Edema, Normal Capillary Refill Neurological: Alert, Oriented, Normal Cognition, No Motor/Sensory Deficits Psychiatric: Anxious Skin Exam: Warm, Dry, Intact, Normal Color, Other (ON the crease on the proximal inner left thigh there is an area about the size of a saxman that is erythematous hot hard and indurated with central fluctuance concerns for abscess that has a foul smell and is draining mild amount of cellulitic component surrounding. Small amount of inguinal lymphadenopathy. ) Lymphatic: Adenopathy (Left groin.) ED I&D PROCEDURES - I&D Site: left groin Skin prep: Providone-Iodine (Betadine) Local anesthesia - Lidocaine (Xylocaine): 1% with EPI Local Anesthesia - Bupivicaine (Marcaine): 0.5% with EPI Local Anesthetic Volume: Other (10) Area Incised With: 11 Blade Drainage: Purulent, Bloody, Moderate Amount Probed to Break Up Loculations: Yes Packed With: 1/4 in. Iodoform Sterile Dressinx4(s) Complications: No Progress/Comments: The wound did tract medially aprox 2 cm although is still clearly away from the anus and tracts more towards the vagina although is also clearly not involved by exam. There was a cruciate incision made. The wound was probed to break up loculations. It was irrigated with a total of 180 mils of sterile saline and chlorhexidine solution. It was packed with quarter inch iodoform gauze. The patient tolerated the procedure well. Cultures were obtained. EKG INTERPRETATION EKG Date: 09/09/19 Time: 11:08 Rhythm: NSR Rate (Beats/Min): 89 Okay: Normal P-Wave: Present QRS: Normal ST-T: Normal QT: Normal Comparison: No Change Course - Vital Signs Last Recorded V/S: Last Vital Signs Temp 36.8 C 09/09/19 11:00 Pulse 98 09/09/19 11:00 Resp 18 09/09/19 11:00 BP 93/58 L 09/09/19 11:00 Pulse Ox 95 09/09/19 11:00 - Orders/Labs/Meds Orders: Active Orders 24 hr Category Date Time Status EKG Documentation Completion [RC] STAT Care 09/09/19 11:08 Active CORONAVIRUS COVID-19 PCR PHL Stat Lab 09/09/19 12:00 Received CULTURE BLOOD [BC] Stat Lab 09/09/19 11:28 Received CULTURE BLOOD [BC] Stat Lab 09/09/19 11:38 Received CULTURE WOUND [RM] Stat Lab 09/09/19 12:17 Ordered Blood Culture x2 Reflex Set [OM.PC] Stat Oth 09/09/19 11:08 Ordered Labs: Laboratory Tests 09/09/19 09/09/19 09/09/19 Range/Units 11:28 11:28 11:28 WBC 14.9 H (4.0-10.0) x10^3/uL RBC 4.87 (4.00-5.50) x10^6/uL Hgb 14.1 (12.0-16.0) g/dL Hct 41.2 (33.0-47.0) % MCV 84.6 (78.0-93.0) fL MCH 29.0 (26.0-32.0) pg MCHC 34.2 (32.0-36.0) g/dL RDW Coeff of Bisi 14.8 (10.0-15.0) % Plt Count 425 H (130-400) x10^3/uL Add Manual Diff Yes Neutrophils % (Manual) 71 (50-80) % Band Neutrophils % 2 (0-6) % Lymphocytes % (Manual) 17 L (25-50) % Atypical Lymphs % 3 H (0) % Monocytes % (Manual) 6 (2-11) % Eosinophils % (Manual) 1 (0-4) % Platelet Estimate Increased H Sodium 142 (136-145) mmol/L Potassium 3.7 (3.5-5.1) mmol/L Chloride 105 (98-107) mmol/L Carbon Dioxide 21 (21-32) mmol/L Anion Gap 19.7 (10-20) mmol/L BUN 15 (7-18) mg/dL Creatinine 1.0 (0.55-1.02) mg/dL Est Cr Clr Drug Dosing TNP Estimated GFR (MDRD) 58 Glucose 143 H (74-106) mg/dL Lactic Acid 1.3 (0.4-2.0) mmol/L Calcium 9.2 (8.5-10.1) mg/dL Corrected Calcium 9.60 (8.5-10.1) mg/dL Total Bilirubin 0.4 (0.2-1.0) mg/dL AST 31 (15-37) U/L ALT 26 (14-59) U/L Alkaline Phosphatase 121 H (46-116) U/L POC Troponin I (0.00-0.08) ng/mL C-Reactive Protein 1.8 H (<=0.9) mg/dL Total Protein 7.7 (6.4-8.2) g/dL Albumin 3.5 (3.4-5.0) g/dL Globulin 4.2 Albumin/Globulin Ratio 0.83 04/16/20 Range/Units 11:45 WBC (4.0-10.0) x10^3/uL RBC (4.00-5.50) x10^6/uL Hgb (12.0-16.0) g/dL Hct (33.0-47.0) % MCV (78.0-93.0) fL MCH (26.0-32.0) pg MCHC (32.0-36.0) g/dL RDW Coeff of Bisi (10.0-15.0) % Plt Count (130-400) x10^3/uL Add Manual Diff Neutrophils % (Manual) (50-80) % Band Neutrophils % (0-6) % Lymphocytes % (Manual) (25-50) % Atypical Lymphs % (0) % Monocytes % (Manual) (2-11) % Eosinophils % (Manual) (0-4) % Platelet Estimate Sodium (136-145) mmol/L Potassium (3.5-5.1) mmol/L Chloride (98-107) mmol/L Carbon Dioxide (21-32) mmol/L Anion Gap (10-20) mmol/L BUN (7-18) mg/dL Creatinine (0.55-1.02) mg/dL Est Cr Clr Drug Dosing Estimated GFR (MDRD) Glucose (74-106) mg/dL Lactic Acid (0.4-2.0) mmol/L Calcium (8.5-10.1) mg/dL Corrected Calcium (8.5-10.1) mg/dL Total Bilirubin (0.2-1.0) mg/dL AST (15-37) U/L ALT (14-59) U/L Alkaline Phosphatase (46-116) U/L POC Troponin I 0.01 (0.00-0.08) ng/mL C-Reactive Protein (<=0.9) mg/dL Total Protein (6.4-8.2) g/dL Albumin (3.4-5.0) g/dL Globulin Albumin/Globulin Ratio Meds: Medications Discontinued Medications Generic Name Dose Route Start Last Admin Trade Name Freq PRN Reason Stop Dose Admin Bupivacaine HCl/Epinephrine Bitart 30 ml 09/09/19 11:30 09/09/19 11:48 Marcaine 0.5%/Epinephrine 1:200,000 INJECT 09/09/19 11:31 30 ml ONETIME ONE Administration Doxycycline Hyclate 100 mg 09/09/19 11:29 09/09/19 11:39 Vibramycin PO 09/09/19 11:30 100 mg ONETIME ONE Administration Hydromorphone HCl 0.5 mg 09/09/19 11:29 09/09/19 11:39 Dilaudid IVPUSH 09/09/19 11:30 0.5 mg ONETIME ONE Administration Lactated Ringer's 1,000 mls @ 999 mls/hr 09/09/19 11:08 09/09/19 11:30 Ringers, Lactated IV 09/09/19 12:08 999 mls/hr ONETIME ONE Administration Lidocaine/Epinephrine 20 ml 09/09/19 11:30 09/09/19 11:48 Xylocaine 1% With Epinephrine 1:100,000 INFILT 09/09/19 11:31 20 ml ONETIME ONE Administration Lorazepam 1 mg 09/09/19 11:29 09/09/19 11:38 Ativan IVPUSH 09/09/19 11:30 1 mg STAT ONE Administration Ondansetron HCl 4 mg 09/09/19 11:08 09/09/19 11:31 Zofran IV 09/09/19 11:09 4 mg ONETIME ONE Administration - Radiology Interpretation Free Text/Narrative:: NO acute process per radiology. - Re-Assessments/Exams Free Text/Narrative Re-Assessment/Exam: 09/09/19 13:06 IV LR 1 liter wide open Zofran for nausea. Dilaudid 0.5mg IVP for pain Lorazepam 1mg for anxiety. Blood cultures x 2. Doxycycline 100mg PO Lactic negative. Minimally elevated WBC and CRP CXR negative for acute pathology per radiology. After skin benefits of incision and drainage of the abscess in the left groin area were explained to the patient her questions were answered and she gave verbal consent. Please see the procedure documentation for the abscess management. Patient blood pressure did improve after the above therapy. She did feel much better. She is comfortable with going home. We will test the patient for COVID although her exposure risk is low. She will follow the current recommendations for testing for COVID at home. We will send home with Albuterol MDI and doxycycline packing out tomorrow. I reviewed the results with the patient and the plan of care. She was comfortable with this plan and her questions were answered. Departure - Departure Time of Disposition: 12:45 Disposition: Home, Self-Care 01 Clinical Impression: Abscess of groin, left, Bronchitis - Discharge Information *PRESCRIPTION DRUG MONITORING PROGRAM REVIEWED*: Yes *COPY OF PRESCRIPTION DRUG MONITORING REPORT IN PATIENT JUANITA: No Prescriptions: Hydrocodone/Acetaminophen [Hydrocodon-Acetaminophen 5-325] 1 each PO Q6HR #6 tablet Albuterol [Proventil HFA] 2 puff INH Q4H PRN #1 inhaler PRN Reason: Cough Doxycycline [Vibramycin] 100 mg PO BID #20 cap Instructions: Skin Abscess, Acne-ua-Wasl, How to Take a Sitz Bath, Upper Respiratory Infection, Adult, [id number] Additional Instructions: Lots of fluids over the next few days. Albuterol inhaler, 2 puffs every 4 hrs as needed for cough congestion wheezing. RX to [facility]. Sitz bath per discharge instruction to the perineal area twice daily. Hot packs to the gladys 4 times a day until healed. Doxycycline 1 tablet twice daily for the next 10 days RX to the pharmacy. Okay to remove the packing tomorrow evening but leave the wound open and allow to drain. Keep the wound covered with a dressing until it heals. Tylenol and or Ibuprofen as needed for pain. If pain not controlled with above. [employer] 5/325, 1 tablet every 6 hrs with food as needed for pain. Caution sedation. RX given to the patient #9. You were also tested for Covid-19 as well. Please see the discharge handout for guidelines to prevent the spread and what to do while waiting fo the results and what to do after the results provider by the CDC. Return to the ED if new or worsening symptoms. Follow up with PCP in the next 4-6 days if not improving sooner if worse. Sepsis Event Note - Focused Exam Vital Signs: Vital Signs Temp Pulse Resp BP Pulse Ox 09/09/19 11:00 36.8 C 98 18 93/58 L 95 Date Exam was Performed: 09/09/19 Time Exam was Performed: 12:45 - My Orders Last 24 Hours: My Active Orders 09/09/19 11:08 EKG Documentation Completion [RC] STAT Blood Culture x2 Reflex Set [OM.PC] Stat 09/09/19 11:28 CULTURE BLOOD [BC] Stat 09/09/19 11:38 CULTURE BLOOD [BC] Stat 09/09/19 12:00 CORONAVIRUS COVID-19 PCR PHL Stat 09/09/19 12:17 CULTURE WOUND [RM] Stat - Assessment/Plan Last 24 Hours: My Active Orders 09/09/19 11:08 EKG Documentation Completion [RC] STAT Blood Culture x2 Reflex Set [OM.PC] Stat 09/09/19 11:28 CULTURE BLOOD [BC] Stat 09/09/19 11:38 CULTURE BLOOD [BC] Stat 09/09/19 12:00 CORONAVIRUS COVID-19 PCR PHL Stat 09/09/19 12:17 CULTURE WOUND [RM] Stat Assessment:: Bronchitis Abscess left groin I/D left groin by myself. Plan: Lots of fluids over the next few days. Albuterol inhaler, 2 puffs every 4 hrs as needed for cough congestion wheezing. RX to [facility]. Sitz bath per discharge instruction to the perineal area twice daily. Hot packs to the gladys 4 times a day until healed. Doxycycline 1 tablet twice daily for the next 10 days RX to the pharmacy. Okay to remove the packing tomorrow evening but leave the wound open and allow to drain. Keep the wound covered with a dressing until it heals. Tylenol and or Ibuprofen as needed for pain. If pain not controlled with above. [employer] 5/325, 1 tablet every 6 hrs with food as needed for pain. Caution sedation. RX given to the patient #9. Return to the ED if new or worsening symptoms. Follow up with PCP in the next 4-6 days if not improving sooner if worse.
--- NOTE | 2019-09-09 12:15 | CR ---
[id number] RAD/RAD Chest PA or AP 1V EXAM: SINGLE VIEW CHEST. INDICATION: CHEST PAIN SHORTNESS OF BREATH COMPARISON: NO PREVIOUS SIMILAR EXAM IS AVAILABLE FINDINGS: The lungs are clear The cardiac silhouette is normal Surgical changes of the left upper quadrant are seen Surgical changes of the lumbar spine also are seen IMPRESSION: NO ACUTE PROCESS Néstor Sykes MD 09/09/19 [id number] Thank you for allowing us to participate in the care of your patient.
[2019-09-09 12:22] LABS: ANION GAP 19.7 mmol/L (10-20); CHLORIDE,CL 105 mmol/L (98-107); SODIUM,NA 142 mmol/L (136-145)
== END 2019-09-09 12:45 | disposition home or self-care (01) ==
LOC: VM.ED 10:58
DX: L02.214 Cutaneous abscess of groin (principal); J40 Bronchitis, not specified as acute or chronic; K21.9 Gastro-esophageal reflux disease without esophagitis; Z79.899 Other long term (current) drug therapy; E03.9 Hypothyroidism, unspecified; F41.9 Anxiety disorder, unspecified; F32.9 Major depressive disorder, single episode, unspecified; G43.909 Migraine, unspecified, not intractable, without status migrainosus; Z68.27 Body mass index [BMI] 27.0-27.9, adult; Z88.2 Allergy status to sulfonamides; Z88.5 Allergy status to narcotic agent
CPT/HCPCS: 10061; 36415; 71045; 80053; 83605; 84484; 85025; 86140; 87040; 87070; 87077; 87804; 93005; 96361; 96374; 96375; 99285; A9270; J1170; J2060; J2405; J3490; J7120; 87186; U0002

== ENCOUNTER 2020-01-05 20:08 | Emergency (ER) | payer MEDICARE, MEDICAID ==
[2020-01-05] MEDS ORDERED: Aspirin 81 MG Tab.Chew PO ONE (20:38)
[2020-01-05 21:19] LABS: BARBITURATE SCREEN,URINE NEGATIVE (NEGATIVE); BENZODIAZEPINES SCREEN,URINE NEGATIVE (NEGATIVE); EDDP,URINE SCREEN NEGATIVE (NEGATIVE); METHAMPHETAMINE SCREEN, URINE NEGATIVE (NEGATIVE); TCA SCREEN,URINE NEGATIVE (NEGATIVE); THC SCREEN,URINE 50 NG/ML NEGATIVE (NEGATIVE)
[2020-01-05 21:26] LABS: CHLORIDE,CL 104 mmol/L (98-107); SODIUM,NA 138 mmol/L (136-145)
[2020-01-05 21:27] LABS: ANION GAP 10.5 mmol/L (10-20)
[2020-01-05] MEDS ORDERED: Sodium Chloride 0.9% 10 ML Syringe FLUSH PRN (21:39)
[2020-01-05] MEDS ORDERED: Ketorolac 15 MG/ML SDV IVPUSH ONE (21:42)
[2020-01-05] MEDS ORDERED: Iopamidol 612 MG/ML 100 ML Bottle IVPUSH ONE (21:50)
--- NOTE | 2020-01-06 06:30 | EDM.PDOC ---
ED HPI GENERAL MEDICAL PROBLEM - General Chief Complaint: General Stated Complaint: Chest and back pain, Chronic diarrhea Time Seen by Provider: 01/05/20 20:15 Source of Information: Reports: Patient History Limitations: Reports: No Limitations - History of Present Illness INITIAL COMMENTS - FREE TEXT/NARRATIVE: Pt. presents to ER with numerous complaints. She states that she has been experiencing intermittent respirophasic chest discomfort for several weeks. She states that it is located in the middle of her chest and radiates into her back. Denies any fever or chills. Not radiation into the arms or back. Denies any shortness of breath. Pt. denies any cough. No chest congestion. Denies any fever or chills. She also complains of diarrhea and abdominal cramping that she has been experiencing for over a year. She states that she has not addressed with with her PCP. She states that she has several episodes of diarrhea per day. She has not had any stool studies. Pt. was hospitalized in 2018 and 2019 for spinal fusion and diskitis. She states that sometimes it is bloody. She states that she addressed this with Dr. Jordan who wanted to do a colonoscopy but states that she has not done this yet. Pt. states that she is also experiencing severe lumbar spine. Again, she had a lumbar fusion, and states that this has never helped the pain. She states that she has not had any MRI of her lumbar spine recently. She has been experiencing this discomfort for over a year as well. Onset Date: 01/05/20 Location: Reports: Chest, Abdomen, Back Quality: Reports: Ache mid sternal chest Pain Score (Numeric/FACES): 3 - Related Data Allergies Allergy/AdvReac Type Severity Reaction Status Date / Time Sulfa (Sulfonamide Allergy Intermediate Hives Verified 01/05/20 21:19 Antibiotics) codeine Allergy Hives Verified 01/05/20 21:19 Home Meds: Home Meds ClonazePAM [KlonoPIN] 2 mg PO BID 08/19/13 [History] Topiramate [Topamax] 100 mg PO BID 08/19/13 [History] traMADol HCl [Ultram] 50 mg PO QID PRN 08/19/13 [History] Cyanocobalamin (Vitamin B-12) [Vitamin B-12] 1,000 mcg PO DAILY 08/04/16 [History] Fluticasone Propionate [Flonase] 2 sprays NASBOTH DAILY 08/04/16 [History] Omeprazole Magnesium [Prilosec Otc] 20 mg PO DAILY 08/04/16 [History] traZODone HCl [Trazodone HCl] 75 mg PO BEDTIME 08/04/16 [History] Venlafaxine [Effexor XR] 75 mg PO DAILY 01/04/19 [History] Venlafaxine [Effexor XR] 150 mg PO DAILY 01/04/19 [History] Albuterol [Proventil HFA] 2 puff INH Q4H PRN #1 inhaler 09/09/19 [Rx] Doxycycline [Vibramycin] 100 mg PO BID #20 cap 09/09/19 [Rx] Hydrocodone/Acetaminophen [Hydrocodon-Acetaminophen 5-325] 1 each PO Q6HR #6 tablet 09/09/19 [Rx] Past Medical History HEENT History: Reports: Allergic Rhinitis Other HEENT History: Dental caries. 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) Other DIESEL ENGINE I PIPE FITTER History: menorrhagia Musculoskeletal History: Reports: Fibromyalgia Other Musculoskeletal History: family history of polymositis Neurological History: Reports: Migraines, Other (See Below) Other Neuro History: family history of charcot sofy tooth Psychiatric History: Reports: Anxiety, Depression Other Psychiatric History: Tobacco use disorder; Personality disorder; Opioid dependence Endocrine/Metabolic History: Reports: Hypothyroidism Hematologic History: Reports: B12 Deficiency - Infectious Disease History Infectious Disease History: Reports: Hepatitis C - Past Surgical History HEENT Surgical History: Reports: None GI Surgical History: Reports: Other (See Below) Other GI Surgeries/Procedures: splenectomy Musculoskeletal Surgical History: Reports: None Dermatological Surgical History: Reports: None Social & Family History - Family History Family Medical History: Noncontributory - Tobacco Use Smoking Status *Q: Former Smoker Used Tobacco, but Quit: Yes Month/Year Tobacco Last Used: 11/12 - Caffeine Use Caffeine Use: Reports: Coffee, Soda - Recreational Drug Use Recreational Drug Use: No ED ROS GENERAL - Review of Systems Review Of Systems: See Below Constitutional: Reports: No Symptoms, Fatigue. Denies: Fever, Chills HEENT: Reports: No Symptoms Respiratory: Reports: Pleuritic Chest Pain Cardiovascular: Reports: Chest Pain. Denies: Dyspnea on Exertion, Edema, Lightheadedness, Palpitations, Syncope Endocrine: Reports: No Symptoms GI/Abdominal: Reports: Abdominal Pain, Diarrhea (occasionally bloody for a year), Flatus : Reports: No Symptoms Musculoskeletal: Reports: Back Pain Neurological: Reports: No Symptoms Psychiatric: Reports: No Symptoms Hematologic/Lymphatic: Reports: No Symptoms Immunologic: Reports: No Symptoms ED EXAM, GENERAL - Physical Exam Exam: See Below Exam Limited By: No Limitations General Appearance: Alert, WD/WN, No Apparent Distress Eye Exam: Bilateral Eye: EOMI, PERRL Nose: Normal Inspection, Normal Mucosa, No Blood Throat/Mouth: Normal Inspection, Normal Lips, Normal Teeth, Normal Gums, Normal Oropharynx, Normal Voice, No Airway Compromise Head: Atraumatic, Normocephalic Neck: Normal Inspection, Supple Respiratory/Chest: No Respiratory Distress, Lungs Clear, Normal Breath Sounds, No Accessory Muscle Use, Chest Non-Tender Cardiovascular: Normal Peripheral Pulses, Regular Rate, Rhythm, No Edema, No Murmur Peripheral Pulses: 4+: Radial (L) GI/Abdominal: Normal Bowel Sounds, Soft, Non-Tender, No Organomegaly, No Distention, No Mass (Female) Exam: Deferred Rectal (Female) Exam: Deferred Back Exam: Decreased Range of Motion, Paraspinal Tenderness Extremities: Normal Inspection, Normal Range of Motion, Non-Tender, Normal Capillary Refill Neurological: Alert, Oriented, CN II-XII Intact, Normal Cognition, Normal Gait, Normal Reflexes, No Motor/Sensory Deficits Psychiatric: Normal Affect, Normal Mood Skin Exam: Warm, Dry, Intact, Normal Color, No Rash EKG INTERPRETATION Rhythm: NSR [place]: Normal P-Wave: Present QRS: Normal ST-T: Normal QT: Normal Course - Vital Signs Last Recorded V/S: Last Vital Signs Temp 36.6 C 01/05/20 20:08 Pulse 71 01/05/20 20:08 Resp 16 01/05/20 20:08 BP 106/72 01/05/20 20:08 Pulse Ox 99 01/05/20 20:08 - Orders/Labs/Meds Orders: Active Orders 24 hr Category Date Time Status PE Chest [Ang Chest] [CT] Stat Exams 01/05/20 21:39 Taken Peripheral IV Insertion Adult [OM.PC] Routine Oth 01/05/20 21:39 Ordered Labs: Laboratory Tests 01/05/20 01/05/20 01/05/20 Range/Units 20:50 20:50 20:56 WBC (4.0-10.0) x10^3/uL RBC (4.00-5.50) x10^6/uL Hgb (12.0-16.0) g/dL Hct (33.0-47.0) % MCV (78.0-93.0) fL MCH (26.0-32.0) pg MCHC (32.0-36.0) g/dL RDW Coeff of Bisi (10.0-15.0) % Plt Count (130-400) x10^3/uL Neut % (Auto) (50.0-80.0) % Lymph % (Auto) (25.0-50.0) % [place] % (Auto) (2.0-11.0) % Eos % (Auto) (0.0-4.0) % Baso % (Auto) (0.2-1.2) % PT 12.1 (9.5-12.3) SEC INR 1.1 L (2.0-3.5) D-Dimer, Quantitative (<=0.58) mg/LFEU Sodium (136-145) mmol/L Potassium (3.5-5.1) mmol/L Chloride (98-107) mmol/L Carbon Dioxide (21-32) mmol/L Anion Gap (10-20) mmol/L BUN (7-18) mg/dL Creatinine (0.55-1.02) mg/dL Est Cr Clr Drug Dosing mL/min Estimated GFR (MDRD) Glucose (74-106) mg/dL Calcium (8.5-10.1) mg/dL Corrected Calcium (8.5-10.1) mg/dL Total Bilirubin (0.2-1.0) mg/dL AST (15-37) U/L ALT (14-59) U/L Alkaline Phosphatase (46-116) U/L Troponin I (<=0.056) ng/mL C-Reactive Protein (<=0.9) mg/dL Total Protein (6.4-8.2) g/dL Albumin (3.4-5.0) g/dL Globulin Albumin/Globulin Ratio Urine Color Yellow (YELLOW) Urine Appearance Clear (CLEAR) Urine pH 6.0 (5.0-8.0) Ur Specific [place] 1.020 Urine Protein Negative (NEGATIVE) mg/dL Urine Glucose (UA) Negative (NEGATIVE) mg/dL Urine Ketones Negative (NEGATIVE) mg/dL Urine Occult Blood Negative (NEGATIVE) Urine Nitrite Negative (NEGATIVE) Urine Bilirubin Negative (NEGATIVE) Urine Urobilinogen 0.2 (0.2) EU/dL Ur Leukocyte Esterase Negative (NEGATIVE) Urine Opiates Screen Negative (NEGATIVE) Ur Buprenorphine Scrn Negative (NEGATIVE) Ur Oxycodone Screen Negative (NEGATIVE) Ur EDDP (Meth Metab) Negative (NEGATIVE) Urine Methadone Screen Negative (NEGATIVE) Ur Barbiturates Screen Negative (NEGATIVE) Ur Tricyclics Screen Negative (NEGATIVE) Ur Phencyclidine Scrn Negative (NEGATIVE) Ur Amphetamine Screen Negative (NEGATIVE) U Methamphetamines Scrn Negative (NEGATIVE) Urine MDMA Screen Negative (NEGATIVE) U Benzodiazepines Scrn Negative (NEGATIVE) U Cocaine Metab Screen Negative (NEGATIVE) U Marijuana (THC) Screen Negative (NEGATIVE) 01/05/20 01/05/20 01/05/20 Range/Units 20:56 20:56 20:56 WBC 12.3 H (4.0-10.0) x10^3/uL RBC 4.31 (4.00-5.50) x10^6/uL Hgb 12.8 (12.0-16.0) g/dL Hct 37.6 (33.0-47.0) % MCV 87.2 (78.0-93.0) fL MCH 29.7 (26.0-32.0) pg MCHC 34.0 (32.0-36.0) g/dL RDW Coeff of Bisi 15.5 H (10.0-15.0) % Plt Count 334 D (130-400) x10^3/uL Neut % (Auto) 28.3 L (50.0-80.0) % Lymph % (Auto) 59.2 H (25.0-50.0) % [place] % (Auto) 8.6 (2.0-11.0) % Eos % (Auto) 3.5 (0.0-4.0) % Baso % (Auto) 0.4 (0.2-1.2) % PT (9.5-12.3) SEC INR (2.0-3.5) D-Dimer, Quantitative 0.72 H (<=0.58) mg/LFEU Sodium 138 (136-145) mmol/L Potassium 3.5 (3.5-5.1) mmol/L Chloride 104 (98-107) mmol/L Carbon Dioxide 27 (21-32) mmol/L Anion Gap 10.5 (10-20) mmol/L BUN 13 (7-18) mg/dL Creatinine 0.9 (0.55-1.02) mg/dL Est Cr Clr Drug Dosing 65.05 mL/min Estimated GFR (MDRD) > 60 Glucose 81 (74-106) mg/dL Calcium 8.1 L (8.5-10.1) mg/dL Corrected Calcium 8.42 L (8.5-10.1) mg/dL Total Bilirubin 0.3 (0.2-1.0) mg/dL AST 51 H (15-37) U/L ALT 54 (14-59) U/L Alkaline Phosphatase 122 H (46-116) U/L Troponin I < 0.017 (<=0.056) ng/mL C-Reactive Protein 0.8 (<=0.9) mg/dL Total Protein 7.8 (6.4-8.2) g/dL Albumin 3.6 (3.4-5.0) g/dL Globulin 4.2 Albumin/Globulin Ratio 0.86 Urine Color (YELLOW) Urine Appearance (CLEAR) Urine pH (5.0-8.0) Ur Specific [place] Urine Protein (NEGATIVE) mg/dL Urine Glucose (UA) (NEGATIVE) mg/dL Urine Ketones (NEGATIVE) mg/dL Urine Occult Blood (NEGATIVE) Urine Nitrite (NEGATIVE) Urine Bilirubin (NEGATIVE) Urine Urobilinogen (0.2) EU/dL Ur Leukocyte Esterase (NEGATIVE) Urine Opiates Screen (NEGATIVE) Ur Buprenorphine Scrn (NEGATIVE) Ur Oxycodone Screen (NEGATIVE) Ur EDDP (Meth Metab) (NEGATIVE) Urine Methadone Screen (NEGATIVE) Ur Barbiturates Screen (NEGATIVE) Ur Tricyclics Screen (NEGATIVE) Ur Phencyclidine Scrn (NEGATIVE) Ur Amphetamine Screen (NEGATIVE) U Methamphetamines Scrn (NEGATIVE) Urine MDMA Screen (NEGATIVE) U Benzodiazepines Scrn (NEGATIVE) U Cocaine Metab Screen (NEGATIVE) U Marijuana (THC) Screen (NEGATIVE) Meds: Medications Discontinued Medications Generic Name Dose Route Start Last Admin Trade Name Freq PRN Reason Stop Dose Admin Aspirin 324 mg 01/05/20 20:38 01/05/20 20:38 Aspirin PO 01/05/20 20:39 324 mg ONETIME ONE Administration Iopamidol 100 ml 01/05/20 21:50 01/05/20 22:15 Isovue-300 (61%) IVPUSH 01/05/20 21:51 100 ml ONETIME ONE Administration Ketorolac Tromethamine 15 mg 01/05/20 21:42 01/05/20 22:22 Toradol IVPUSH 01/05/20 21:43 15 mg ONETIME ONE Administration Sodium Chloride 10 ml 01/05/20 21:39 Saline Flush FLUSH ASDIRECTED PRN Keep Vein Open - Radiology Interpretation Free Text/Narrative:: CT angiogram was obtained, as the patient had a positive d dimer. No PE, pneumonia, pneumothorax, edema or infiltrate noted. No other pathology noted. Departure - Departure Time of Disposition: 23:11 Disposition: Home, Self-Care 01 Clinical Impression: Chest pain, atypical, Chronic pain - Discharge Information Instructions: Nonspecific Chest Pain, Adult, [id number] Referrals: Gilbert Jordan MD [Primary Care Provider] - Forms: ED Department Discharge Additional Instructions: No cause for your chest pain was identified. There is no evidence of heart attack, aneurysm, pulmonary embolism or infection. Please follow-up with Dr. Smith tomorrow to discuss your chronic medical problems, especially your diarrhea. You should have stool studies and colonoscopy, as it appears Dr. Jordan had wanted to do this in the past. Continue all of your current medications at their current doses. Sepsis Event Note (ED) - Evaluation Sepsis Screening Result: No Definite Risk - Focused Exam Vital Signs: Vital Signs Temp Pulse Resp BP Pulse Ox 01/05/20 20:08 36.6 C 71 16 106/72 99 - My Orders Last 24 Hours: My Active Orders 01/05/20 21:39 PE Chest [Ang Chest] [CT] Stat Peripheral IV Insertion Adult [OM.PC] Routine - Assessment/Plan Last 24 Hours: My Active Orders 01/05/20 21:39 PE Chest [Ang Chest] [CT] Stat Peripheral IV Insertion Adult [OM.PC] Routine Plan: No cause for your chest pain was identified. There is no evidence of heart attack, aneurysm, pulmonary embolism or infection. Please follow-up with Dr. Smith tomorrow to discuss your chronic medical problems, especially your diarrhea. You should have stool studies and colonoscopy, as it appears Dr. Jordan had wanted to do this in the past. Continue all of your current medications at their current doses.
--- NOTE | 2020-01-06 08:54 | CT ---
[id number] CT/CTA Chest Exam: CTA Chest Clinical Data: CHEST PAIN POSITIVE D-DIMER COMPARISON: NO PREVIOUS SIMILAR EXAM IS AVAILABLE FINDINGS: The lungs are clear. There is no pulmonary embolus There is no mediastinal mass or adenopathy IMPRESSION: NO PULMONARY EMBOLUS Néstor Sykes MD 01/06/20 0852 Thank you for allowing us to participate in the care of your patient.
== END 2020-01-05 23:11 | disposition home or self-care (01) ==
LOC: VM.ED 20:08
DX: R07.89 Other chest pain (principal); R19.7 Diarrhea, unspecified; R10.9 Unspecified abdominal pain; K21.9 Gastro-esophageal reflux disease without esophagitis; F41.9 Anxiety disorder, unspecified; F32.9 Major depressive disorder, single episode, unspecified; Z88.2 Allergy status to sulfonamides; Z88.5 Allergy status to narcotic agent; Z79.899 Other long term (current) drug therapy
CPT/HCPCS: 36415; 71275; 80053; 80305; 81003; 84484; 85025; 85379; 85610; 86140; 93005; 96374; 99285; A9270; J1885; Q9967

== ENCOUNTER 2020-01-10 15:47 | Emergency (ER) | payer MEDICARE, MEDICAID ==
[2020-01-10 18:27] LABS: CHLORIDE,CL 104 mmol/L (98-107); SODIUM,NA 137 mmol/L (136-145)
[2020-01-10 18:28] LABS: ANION GAP 11.7 mmol/L (10-20)
[2020-01-10] MEDS ORDERED: Sodium Chloride 0.9% 10 ML Syringe FLUSH PRN (18:41)
--- NOTE | 2020-01-10 19:04 | EDM.PDOC ---
ED HPI GENERAL MEDICAL PROBLEM - General Chief Complaint: Abdominal Pain Stated Complaint: Abdominal Pain Time Seen by Provider: 01/10/20 16:25 Source of Information: Reports: Patient History Limitations: Reports: No Limitations - History of Present Illness INITIAL COMMENTS - FREE TEXT/NARRATIVE: PtMary Jane presents to ER with complaints of continued abdominal discomfort. She was seen in ER on 01/06/2020 with numerous complaints, including chest pain. She was worked up at that time and found to have a positive d dimer. Subsequently CTA of the chest was performed at that time and was negative for acute PE. No other source of the discomfort was identified. Pt. primary complaint today is diarrhea and abdominal discomfort/cramping for almost a year. Pt. PCP is Dr. Smith. On her exam last week, plan was for patient to follow-up with Dr. Smith on 01/06 to get stool studies including c-diff ordered and also to order a hepatobiliary US and a colonoscopy. Pt. previous PCP, Dr. Jordan was wanting to order these, but it didn't get done due to covid. Pt. "no-showed" at her clinic appointment, however. Pt. is also concerned that her discomfort could be due to hep c, which she is diagnosed with. She was scheduled to see ID but has cancelled and no showed with them as well. Right Abdomen Pain Score (Numeric/FACES): 8 - Related Data Allergies Allergy/AdvReac Type Severity Reaction Status Date / Time Sulfa (Sulfonamide Allergy Intermediate Hives Verified 01/10/20 19:49 Antibiotics) codeine Allergy Hives Verified 01/10/20 19:49 Home Meds: Home Meds ClonazePAM [KlonoPIN] 2 mg PO BID 08/19/13 [History] Topiramate [Topamax] 100 mg PO BID 08/19/13 [History] traMADol HCl [Ultram] 50 mg PO QID PRN 08/19/13 [History] Cyanocobalamin (Vitamin B-12) [Vitamin B-12] 1,000 mcg PO DAILY 08/04/16 [History] Fluticasone Propionate [Flonase] 2 sprays NASBOTH DAILY 08/04/16 [History] Omeprazole Magnesium [Prilosec Otc] 20 mg PO DAILY 08/04/16 [History] traZODone HCl [Trazodone HCl] 75 mg PO BEDTIME 08/04/16 [History] Venlafaxine [Effexor XR] 75 mg PO DAILY 01/04/19 [History] Venlafaxine [Effexor XR] 150 mg PO DAILY 01/04/19 [History] Albuterol [Proventil HFA] 2 puff INH Q4H PRN #1 inhaler 09/09/19 [Rx] Doxycycline [Vibramycin] 100 mg PO BID #20 cap 09/09/19 [Rx] Hydrocodone/Acetaminophen [Hydrocodon-Acetaminophen 5-325] 1 each PO Q6HR #6 tablet 09/09/19 [Rx] Past Medical History HEENT History: Reports: Allergic Rhinitis Other HEENT History: Dental caries. 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: menorrhagia Musculoskeletal History: Reports: Fibromyalgia Other Musculoskeletal History: family history of polymositis Neurological History: Reports: Migraines, Other (See Below) Other Neuro History: family history of charcot sofy tooth Psychiatric History: Reports: Anxiety, Depression Other Psychiatric History: Tobacco use disorder; Personality disorder; Opioid dependence Endocrine/Metabolic History: Reports: Hypothyroidism Hematologic History: Reports: B12 Deficiency - Infectious Disease History Infectious Disease History: Reports: Hepatitis C - Past Surgical History HEENT Surgical History: Reports: None GI Surgical History: Reports: Other (See Below) Other GI Surgeries/Procedures: splenectomy Musculoskeletal Surgical History: Reports: None Dermatological Surgical History: Reports: None Social & Family History - Family History Family Medical History: Noncontributory - Caffeine Use Caffeine Use: Reports: Coffee, Soda ED ROS GENERAL - Review of Systems Review Of Systems: See Below Constitutional: Reports: No Symptoms HEENT: Reports: No Symptoms Respiratory: Reports: No Symptoms Cardiovascular: Reports: No Symptoms Endocrine: Reports: No Symptoms GI/Abdominal: Reports: Abdominal Pain, Diarrhea : Reports: No Symptoms Musculoskeletal: Reports: No Symptoms Skin: Reports: No Symptoms Neurological: Reports: No Symptoms Psychiatric: Reports: No Symptoms Hematologic/Lymphatic: Reports: No Symptoms Immunologic: Reports: No Symptoms ED EXAM, GENERAL - Physical Exam Exam: See Below Exam Limited By: No Limitations General Appearance: Alert, WD/WN, No Apparent Distress Head: Atraumatic, Normocephalic Cardiovascular: Normal Peripheral Pulses, Regular Rate, Rhythm, No Edema, No JVD GI/Abdominal: Soft, No Mass, Distended, Tender (Female) Exam: Deferred Rectal (Female) Exam: Deferred Back Exam: Normal Inspection, Full Range of Motion Extremities: Normal Inspection, Normal Range of Motion, Non-Tender, No Pedal Edema, Normal Capillary Refill Neurological: Alert, Oriented, CN II-XII Intact, Normal Cognition, Normal Gait, Normal Reflexes, No Motor/Sensory Deficits Psychiatric: Anxious, Tearful Course - Vital Signs Last Recorded V/S: Last Vital Signs Temp 36.3 C 01/10/20 16:25 Pulse 73 01/10/20 16:25 Resp 16 01/10/20 16:25 BP 171/86 H 01/10/20 16:25 Pulse Ox 96 01/10/20 16:25 - Orders/Labs/Meds Orders: Active Orders 24 hr Category Date Time Status CLOSTRIDIUM DIFFICILE TOX RFLX [MREF] Stat Lab 01/10/20 17:20 Received CULTURE URINE [RM] Stat Lab 01/10/20 18:40 Received OVA & PARASITES BY IMMUNOASSAY [MREF] Stat Lab 01/10/20 17:30 Received STOOL CULTURE [MREF] Stat Lab 01/10/20 17:30 Received Sodium Chloride 0.9% [Saline Flush] Med 01/10/20 18:41 Active 10 ml FLUSH ASDIRECTED PRN Isolation [COMM] Stat Oth 01/10/20 19:00 Ordered Peripheral IV Insertion Adult [OM.PC] Routine Oth 01/10/20 18:41 Ordered Medication Orders Sodium Chloride (Saline Flush) 10 ml FLUSH ASDIRECTED PRN PRN Reason: Keep Vein Open Labs: Laboratory Tests 01/10/20 01/10/20 01/10/20 Range/Units 18:02 18:02 18:40 WBC 11.9 H (4.0-10.0) x10^3/uL RBC 4.62 (4.00-5.50) x10^6/uL Hgb 13.4 (12.0-16.0) g/dL Hct 39.6 (33.0-47.0) % MCV 85.7 (78.0-93.0) fL MCH 29.0 (26.0-32.0) pg MCHC 33.8 (32.0-36.0) g/dL RDW Coeff of Bisi 15.3 H (10.0-15.0) % Plt Count 393 (130-400) x10^3/uL Neut % (Auto) 34.9 L (50.0-80.0) % Lymph % (Auto) 53.1 H (25.0-50.0) % [place] % (Auto) 8.4 (2.0-11.0) % Eos % (Auto) 3.2 (0.0-4.0) % Baso % (Auto) 0.4 (0.2-1.2) % Sodium 137 (136-145) mmol/L Potassium 3.7 (3.5-5.1) mmol/L Chloride 104 (98-107) mmol/L Carbon Dioxide 25 (21-32) mmol/L Anion Gap 11.7 (10-20) mmol/L BUN 12 (7-18) mg/dL Creatinine 0.9 (0.55-1.02) mg/dL Est Cr Clr Drug Dosing TNP Estimated GFR (MDRD) > 60 Glucose 120 H (74-106) mg/dL Calcium 8.7 (8.5-10.1) mg/dL Corrected Calcium 9.10 (8.5-10.1) mg/dL Magnesium 1.7 L (1.8-2.4) mg/dL Total Bilirubin 0.3 (0.2-1.0) mg/dL AST 48 H (15-37) U/L ALT 47 (14-59) U/L Alkaline Phosphatase 117 H (46-116) U/L C-Reactive Protein 0.4 (<=0.9) mg/dL Total Protein 7.8 (6.4-8.2) g/dL Albumin 3.5 (3.4-5.0) g/dL Globulin 4.3 Albumin/Globulin Ratio 0.81 Amylase 31 (25-115) U/L Lipase 124 (73-393) U/L Urine Color Yellow (YELLOW) Urine Appearance Slightly cloudy H (CLEAR) Urine pH 6.0 (5.0-8.0) Ur Specific [place] 1.010 Urine Protein Negative (NEGATIVE) mg/dL Urine Glucose (UA) Negative (NEGATIVE) mg/dL Urine Ketones Negative (NEGATIVE) mg/dL Urine Occult Blood Trace-intact H (NEGATIVE) Urine Nitrite Negative (NEGATIVE) Urine Bilirubin Negative (NEGATIVE) Urine Urobilinogen 0.2 (0.2) EU/dL Ur Leukocyte Esterase Small H (NEGATIVE) Urine RBC 0-5 (NOT SEEN) /HPF Urine WBC 0-5 (NOT SEEN) /HPF Ur Squamous Epith Cells Few H (NEGATIVE) /HPF Amorphous Sediment Few Urine Bacteria Few H (NEGATIVE) /HPF Urine Mucus Few H (NEGATIVE) /LPF Meds: Medications Generic Name Dose Route Start Last Admin Trade Name Freq PRN Reason Stop Dose Admin Sodium Chloride 10 ml 01/10/20 18:41 Saline Flush FLUSH ASDIRECTED PRN Keep Vein Open Discontinued Medications Generic Name Dose Route Start Last Admin Trade Name Freq PRN Reason Stop Dose Admin Iopamidol 100 ml 01/10/20 19:11 01/10/20 19:12 Isovue-300 (61%) IVPUSH 01/10/20 19:12 100 ml ONETIME ONE Administration Ketorolac Tromethamine 15 mg 01/10/20 19:17 01/10/20 19:25 Toradol IVPUSH 01/10/20 19:18 15 mg ONETIME ONE Administration Morphine Sulfate 4 mg 01/10/20 19:16 01/10/20 19:27 Morphine IVPUSH 01/10/20 19:17 4 mg ONETIME ONE Administration - Radiology Interpretation Free Text/Narrative:: CT abdomen and pelvis with contrast obtained. No obvious acute pathology or emergent infectious process noted. Departure - Departure Time of Disposition: 20:00 Disposition: Home, Self-Care 01 Clinical Impression: Epigastric pain, Chronic diarrhea - Discharge Information Instructions: Hepatitis C, [id number], Chronic Diarrhea Referrals: PCP,None [Primary Care Provider] - Forms: ED Department Discharge Additional Instructions: Home to rest. It is imperative that you follow-up with Dr. Smith or someone in the clinic to set up a colonoscopy. Drink plenty of fluids. I will let you know the results of your stool studies. Sepsis Event Note (ED) - Focused Exam Vital Signs: Vital Signs Temp Pulse Resp BP Pulse Ox 01/10/20 16:25 36.3 C 73 16 171/86 H 96 - Problem List Review Problem List Initiated/Reviewed/Updated: Yes - My Orders Last 24 Hours: My Active Orders 01/10/20 17:20 CLOSTRIDIUM DIFFICILE TOX RFLX [MREF] Stat 01/10/20 17:30 OVA & PARASITES BY IMMUNOASSAY [MREF] Stat STOOL CULTURE [MREF] Stat 01/10/20 18:40 CULTURE URINE [RM] Stat 01/10/20 18:41 Sodium Chloride 0.9% [Saline Flush] 10 ml FLUSH ASDIRECTED PRN Peripheral IV Insertion Adult [OM.PC] Routine 01/10/20 19:00 Isolation [COMM] Stat - Assessment/Plan Last 24 Hours: My Active Orders 01/10/20 17:20 CLOSTRIDIUM DIFFICILE TOX RFLX [MREF] Stat 01/10/20 17:30 OVA & PARASITES BY IMMUNOASSAY [MREF] Stat STOOL CULTURE [MREF] Stat 01/10/20 18:40 CULTURE URINE [RM] Stat 01/10/20 18:41 Sodium Chloride 0.9% [Saline Flush] 10 ml FLUSH ASDIRECTED PRN Peripheral IV Insertion Adult [OM.PC] Routine 01/10/20 19:00 Isolation [COMM] Stat Plan: Discussed findings with patient. She is very upset and feels she is being misdiagnosed. Advised her again that she needs to find a PCP to get a referral to GI and/or colonoscopy. She states that she "didn't know how". She was given information on providers at the [facility] locally. I did order stool culture, O and P, and c diff since she provided a sample. Pt. states that she is out of her tramadol and requests refill. Pt. was informed that I could't refill her chronic pain medications. All questions were answered.
[2020-01-10] MEDS ORDERED: Iopamidol 612 MG/ML 100 ML Bottle IVPUSH ONE (19:11)
[2020-01-10] MEDS ORDERED: Morphine 4 MG/ML Syringe IVPUSH ONE (19:16)
[2020-01-10] MEDS ORDERED: Ketorolac 15 MG/ML SDV IVPUSH ONE (19:17)
--- NOTE | 2020-01-10 19:53 | CT ---
[id number] CT/CT Abdomen Pelvis W IV EXAM: CT Abdomen Pelvis W IV CLINICAL DATA: ABDOMINAL PAIN, ELEVATED WHITE COUNT COMPARISON STUDY: None. FINDINGS: Lung bases are clear. Liver, spleen, pancreas, adrenal glands, and left kidney are unremarkable. Cholelithiasis without evidence of acute cholecystitis. 5 mm nonobstructing right renal calculus. No bowel obstruction or inflammation. There are surgical clips within the right lower quadrant may be related to prior cholecystectomy. No inflammatory changes in the right lower quadrant. No lymphadenopathy, free fluid, or pneumoperitoneum. Scattered changes of spondylosis the spine. No fracture or osseous lesion. IMPRESSION: No acute CT abnormality in the abdomen or pelvis to explain the patient's symptoms. Sixto Lyles DO 01/10/201951 Thank you for allowing us to participate in the care of your patient.
== END 2020-01-10 20:15 | disposition home or self-care (01) ==
LOC: VM.ED 15:47
DX: R10.13 Epigastric pain (principal); K52.9 Noninfective gastroenteritis and colitis, unspecified; K21.9 Gastro-esophageal reflux disease without esophagitis; F41.9 Anxiety disorder, unspecified; F32.9 Major depressive disorder, single episode, unspecified; Z88.2 Allergy status to sulfonamides; Z88.5 Allergy status to narcotic agent; Z79.899 Other long term (current) drug therapy
CPT/HCPCS: 36415; 74177; 80053; 81001; 82150; 83690; 83735; 85025; 86140; 87045; 87046; 87086; 87147; 87328; 87329; 87493; 96374; 96375; 99284; J1885; J2270; Q9967

== ENCOUNTER 2020-03-15 13:49 | Observation (INO) | payer MEDICARE, MEDICAID ==
[2020-03-15] MEDS ORDERED: Sodium Chloride 0.9% 10 ML Syringe FLUSH PRN (14:02)
--- NOTE | 2020-03-15 14:19 | EDM.PDOC ---
ED HPI GENERAL MEDICAL PROBLEM - General Stated Complaint: ER Time Seen by Provider: 03/15/20 14:00 Source of Information: Reports: Patient, EMS History Limitations: Reports: Altered Mental Status - History of Present Illness INITIAL COMMENTS - FREE TEXT/NARRATIVE: Patient comes emergency department today by ambulance from home with complaints of weakness and falls. It is rather difficult to obtain the HPI from this patient because the consistency of her story is that it is rather inconsistent. She reports that today for some reason she has been walking around her house and falling all over and her legs are not working like they are used to. She is unsure if this started this morning this afternoon last night or yesterday. She has had a stroke in the past. She is unsure of when it was or what it affected. No headache or visual disturbances. She denies any paresthesias of her upper or lower extremities. She relates that her lower extremities just do not work like they typically do equally bilaterally. She has no chest pain shortness of breath or difficulty breathing. No cough or congestion. No syncope. No palpitations. No abdominal pain nausea or vomiting. No fever or chills. She relates that she did start a new medication Wellbutrin just a couple of days ago. She has been taking her trazodone and her tramadol and other medications such as Topamax and gabapentin as prescribed. She denies taking any medications in an attempt to harm. She denies taking any medications inappropriately in a recreational manner. She denies any recreational drug use or alcohol use. She is unsure if she has any loc. No COVID exposure no COVID symptoms. Per EMS she is well known to EMS and well known as a polysubstance user and abuser. - Related Data Allergies Allergy/AdvReac Type Severity Reaction Status Date / Time Sulfa (Sulfonamide Allergy Intermediate Hives Verified 03/15/20 14:17 Antibiotics) codeine Allergy Hives Verified 03/15/20 14:17 Home Meds: Home Meds ClonazePAM [KlonoPIN] 2 mg PO BID 08/19/13 [History] Topiramate [Topamax] 100 mg PO BID 08/19/13 [History] traMADol HCl [Ultram] 100 mg PO BID 08/19/13 [History] Cyanocobalamin (Vitamin B-12) [Vitamin B-12] 1,000 mcg PO DAILY 08/04/16 [History] Fluticasone Propionate [Flonase] 2 sprays NASBOTH DAILY 08/04/16 [History] Omeprazole Magnesium [Prilosec Otc] 20 mg PO DAILY 08/04/16 [History] traZODone HCl [Trazodone HCl] 150 mg PO BEDTIME 08/04/16 [History] Venlafaxine [Effexor XR] 225 mg PO DAILY 01/04/19 [History] Doxycycline [Vibramycin] 100 mg PO BID #20 cap 09/09/19 [Rx] Acetaminophen [Tylenol Extra Strength] 1,000 mg PO BID 03/15/20 [History] Ascorbic Acid [Vitamin C] 250 mg PO DAILY 03/15/20 [History] Dicyclomine [Bentyl] 10 mg PO QID 03/15/20 [History] Gabapentin [Neurontin] 300 mg PO BID 03/15/20 [History] Vitamin B Complex 1 each PO DAILY 03/15/20 [History] buPROPion HCL [Wellbutrin Xl] 150 mg PO DAILY 03/15/20 [History] buPROPion HCL [Wellbutrin Xl] 300 mg PO DAILY 03/15/20 [History] Past Medical History HEENT History: Reports: Allergic Rhinitis Other HEENT History: Dental caries. 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 OPERATOR History: Reports: Other (See Below) Other CENTRIFUGE OPERATOR History: menorrhagia Musculoskeletal History: Reports: Fibromyalgia Other Musculoskeletal History: family history of polymositis Neurological History: Reports: Migraines, Other (See Below) Other Neuro History: family history of charcot sofy tooth Psychiatric History: Reports: Anxiety, Depression Other Psychiatric History: Tobacco use disorder; Personality disorder; Opioid dependence Endocrine/Metabolic History: Reports: Hypothyroidism Hematologic History: Reports: B12 Deficiency - Infectious Disease History Infectious Disease History: Reports: Hepatitis C - Past Surgical History HEENT Surgical History: Reports: None GI Surgical History: Reports: Other (See Below) Other GI Surgeries/Procedures: splenectomy Musculoskeletal Surgical History: Reports: None Dermatological Surgical History: Reports: None Social & Family History - Family History Family Medical History: Noncontributory - Caffeine Use Caffeine Use: Reports: Coffee, Soda ED ROS GENERAL - Review of Systems Review Of Systems: Comprehensive ROS is negative, except as noted in HPI. - Physical Exam Exam: See Below Exam Limited By: Altered Mental Status (Not confused alert but agitated and rambling.) General Appearance: Alert, WD/WN, Anxious Eye Exam: Bilateral Eye: EOMI, Nystagmus, PERRL Ears: Normal External Exam Nose: Normal Inspection Throat/Mouth: Normal Inspection, Normal Lips Head Exam: Atraumatic, Normocephalic Neck: Normal Inspection, Supple, Non-Tender, Full Range of Motion Respiratory/Chest: No Respiratory Distress, Lungs Clear, Normal Breath Sounds, No Accessory Muscle Use, Chest Non-Tender Cardiovascular: Normal Peripheral Pulses, Regular Rate, Rhythm GI/Abdominal: Normal Bowel Sounds, Soft, Non-Tender (Female) Exam: Deferred Rectal (Female) Exam: Deferred Neuro Exam (Abbreviated): Alert, Oriented, CN II-XII Intact, No Motor/Sensory Deficits, Memory Loss Recent Events, Abnormal Gait (Unsteady wide choppy waddling unsteady gait. ). No: Abnormal Reflexes, Sensory/Motor Deficit DTR: 2+: Tricep (R), Tricep (L), Patella (R), Patella (L), Achilles (R), Achilles (L) Back Exam: Normal Inspection, Full Range of Motion Extremities: Normal Inspection, Normal Range of Motion, Non-Tender, No Pedal Edema, Normal Capillary Refill Psychiatric: Anxious, Other (MOdulated. She goes from laughing to crying in a very short period of time. She has tangential thought. She is very agitated and constantly fidgeting moving and taking. She is constantly licking her lips. Her mouth is very dry. She is constantly moving all of her extremities. She has flight of ideas and tangential thought. Denies any suicidal homicidal ideation.) Skin Exam: Warm, Dry, Intact, Normal Color, No Rash #1 Interpretation EKG Date: 03/15/20 Time: 14:22 Rhythm: NSR Rate (Beats/Min): 61 Points: Normal P-Wave: Present QRS: Normal ST-T: Normal QT: Normal Course - Vital Signs Last Recorded V/S: Last Vital Signs Temp 97.4 F 03/15/20 13:49 Pulse 64 03/15/20 15:49 Resp 12 03/15/20 15:49 BP 101/56 L 03/15/20 15:49 Pulse Ox 98 03/15/20 15:49 - Orders/Labs/Meds Orders: Active Orders 24 hr Category Date Time Status Admission Status [Patient Status] [ADT] Routine ADT 03/15/20 15:50 Active EKG Documentation Completion [RC] STAT Care 03/15/20 14:03 Active DRUG SCREEN, URINE [URCHEM] Stat Lab 03/15/20 14:04 Ordered SALICYLATE [REF] Stat Lab 03/15/20 14:17 Received UA RFX ESTRELLA AND CULT IF INDIC [URIN] Stat Lab 03/15/20 14:04 Ordered Sodium Chloride 0.9% [Saline Flush] Med 03/15/20 14:02 Active 10 ml FLUSH ASDIRECTED PRN Peripheral IV Insertion Adult [OM.PC] Stat Oth 03/15/20 14:03 Ordered Medication Orders Sodium Chloride (Saline Flush) 10 ml FLUSH ASDIRECTED PRN PRN Reason: Keep Vein Open Labs: Laboratory Tests 03/15/20 03/15/20 Range/Units 14:17 14:17 WBC 11.5 H (4.0-10.0) x10^3/uL RBC 4.31 (4.00-5.50) x10^6/uL Hgb 12.6 (12.0-16.0) g/dL Hct 37.7 (33.0-47.0) % MCV 87.5 (78.0-93.0) fL MCH 29.2 (26.0-32.0) pg MCHC 33.4 (32.0-36.0) g/dL RDW Coeff of Bisi 15.1 H (10.0-15.0) % Plt Count 355 (130-400) x10^3/uL Neut % (Auto) 39.7 L (50.0-80.0) % Lymph % (Auto) 49.7 (25.0-50.0) % [place] % (Auto) 7.7 (2.0-11.0) % Eos % (Auto) 2.5 (0.0-4.0) % Baso % (Auto) 0.4 (0.2-1.2) % Sodium 141 (136-145) mmol/L Potassium 3.7 (3.5-5.1) mmol/L Chloride 107 (98-107) mmol/L Carbon Dioxide 25 (21-32) mmol/L Anion Gap 12.7 (10-20) mmol/L BUN 12 (7-18) mg/dL Creatinine 1.0 (0.55-1.02) mg/dL Est Cr Clr Drug Dosing TNP Estimated GFR (MDRD) 58 Glucose 99 (74-106) mg/dL Calcium 8.7 (8.5-10.1) mg/dL Corrected Calcium 9.02 (8.5-10.1) mg/dL Total Bilirubin 0.2 (0.2-1.0) mg/dL AST 15 (15-37) U/L ALT 16 (14-59) U/L Alkaline Phosphatase 128 H (46-116) U/L Troponin I < 0.017 (<=0.056) ng/mL Total Protein 7.5 (6.4-8.2) g/dL Albumin 3.6 (3.4-5.0) g/dL Globulin 3.9 Albumin/Globulin Ratio 0.92 Acetaminophen 0 L (10-30) ug/ml Ethyl Alcohol < 3 (0-3) mg/dL Meds: Medications Generic Name Dose Route Start Last Admin Trade Name Freq PRN Reason Stop Dose Admin Sodium Chloride 10 ml 03/15/20 14:02 Saline Flush FLUSH ASDIRECTED PRN Keep Vein Open - Radiology Interpretation Free Text/Narrative:: CT of the head per radiology negative for acute findings. - Re-Assessments/Exams Free Text/Narrative Re-Assessment/Exam: 03/15/20 This patient really appears to be under some possibly type of substance or medication interaction. It is difficult to receive any HPI from her as her consistency of her story is that it is inconsistent. Denies any recreational drug use or using her medications inappropriately although according to EMS she is well-known to them as a substance abuser. There is no focal neurological deficits. She is agitated taking and constantly moving. CT head is negative. UDS unable to complete as we do not have them recently. I did speak with her PCP Dr. Smith who saw the patient in the clinic just a couple of days ago and did relate that she does have some modulation of mood but she was very steady appropriate and did not seem overtly agitated. She did have some change in her medications [facility] Did [facility] which shows that she recently had the addition of Wellbutrin XR 150 mg for 7 days and then increase to 100 mg daily. The increase of the daily would have been about 4 to 5 days ago. Shortly after the patient's arrival she eventually fell asleep on the cot and was resting comfortably with regular respirations. She did get up and go to the bathroom but she is quite unsteady on her feet and is needing quite a bit of support. There is no other focal neurological deficits. I am not able to discharge her home at this time. I do not think that this is purely a psychiatric presentation this is most likely some type of medication interaction or substance misuse or over usage. We will admit her to the hospital at this time for close observation to see if her unsteadiness and mentation changes improve overnight. I will new all her other previous medications but I will hold her Wellbutrin at this time as it has shown to cause agitation and tics and other sequelae similar to what the patient is presenting to. And is comfortable with this plan and her questions are answered. Departure - Departure Time of Disposition: 16:50 Disposition: Refer to Observation Clinical Impression: Unsteady gait when walking, Agitation, Personality disorder Opioid dependence Qualifiers: Substance use status: with unspecified opioid-induced disorder Qualified Code(s): F11.29 - Opioid dependence with unspecified opioid-induced disorder - Discharge Information Sepsis Event Note (ED) - Focused Exam Vital Signs: Vital Signs Temp Pulse Resp BP Pulse Ox 03/15/20 15:49 64 12 101/56 L 98 03/15/20 14:49 60 12 100/53 L 99 03/15/20 13:49 97.4 F 62 18 100/48 L 97 - Problem List & Annotations (1) Polysubstance abuse SNOMED Code(s): 566561300 Code(s): F19.10 - OTHER PSYCHOACTIVE SUBSTANCE ABUSE, UNCOMPLICATED Status: Acute Current Visit: No (2) Personality disorder SNOMED Code(s): 35519250 Code(s): F60.9 - PERSONALITY DISORDER, UNSPECIFIED Status: Chronic Current Visit: Yes (3) Narcotic dependence SNOMED Code(s): 604266387 Code(s): F11.20 - OPIOID DEPENDENCE, UNCOMPLICATED Status: Chronic Current Visit: No (4) Chronic lower back pain SNOMED Code(s): 591817319 Code(s): M54.5 - LOW BACK PAIN; G89.29 - OTHER CHRONIC PAIN Status: Acute Current Visit: No Qualifiers: Back pain laterality: bilateral Sciatica presence: without sciatica Qualified Code(s): M54.5 - Low back pain; G89.29 - Other chronic pain; G89.29 - Other chronic pain (5) Agitation SNOMED Code(s): 838896648 Code(s): R45.1 - RESTLESSNESS AND AGITATION Status: Acute Current Visit: Yes (6) Opioid dependence SNOMED Code(s): 89936771 Code(s): F11.20 - OPIOID DEPENDENCE, UNCOMPLICATED Status: Acute Current Visit: Yes Qualifiers: Substance use status: with unspecified opioid-induced disorder Qualified Code(s): F11.29 - Opioid dependence with unspecified opioid-induced disorder (7) Unsteady gait when walking SNOMED Code(s): 64897596 Code(s): R26.81 - UNSTEADINESS ON FEET Status: Acute Current Visit: Yes - My Orders Last 24 Hours: My Active Orders 03/15/20 14:02 Sodium Chloride 0.9% [Saline Flush] 10 ml FLUSH ASDIRECTED PRN 03/15/20 14:03 EKG Documentation Completion [RC] STAT Peripheral IV Insertion Adult [OM.PC] Stat 03/15/20 14:04 DRUG SCREEN, URINE [URCHEM] Stat UA RFX ESTRELLA AND CULT IF INDIC [URIN] Stat 03/15/20 14:17 SALICYLATE [REF] Stat 03/15/20 15:50 Admission Status [Patient Status] [ADT] Routine - Assessment/Plan Last 24 Hours: My Active Orders 03/15/20 14:02 Sodium Chloride 0.9% [Saline Flush] 10 ml FLUSH ASDIRECTED PRN 03/15/20 14:03 EKG Documentation Completion [RC] STAT Peripheral IV Insertion Adult [OM.PC] Stat 03/15/20 14:04 DRUG SCREEN, URINE [URCHEM] Stat UA RFX ESTRELLA AND CULT IF INDIC [URIN] Stat 03/15/20 14:17 SALICYLATE [REF] Stat 03/15/20 15:50 Admission Status [Patient Status] [ADT] Routine Assessment:: A/P Admit observation under my service at this time. 1. Agitation, unknown cause. ? if from recent addition of Wellbutrin to an already quite full plate of psychoactive meds as well as opioids. Will hold her Wellbutrin at this time and continue other previous medications. 2. Unsteady gait, CT head normal. NO other focal neurological deficits. She has a choppy wide unsteady gait ? if from the action of wellbutrin and dopamine/norepi interaction. PT/OT eval up with assist hold wellbutrin at this time. 3. Personality disorder continue her home medications Clonazepam, trazodone topiramate effexor gabapentin 4. Opioid dependence. Will continue her tramadol 100mg bid. 5. Hx Chronic Low back pain. Tramadol as per home. 6. Hx of Substance abuse. Social work consult, [facility]. VTE Short stay TEDs Sepsis no signs of infection at this time. Monitor with labs and vitals and re- evaluation. Plan: See assessment.
[2020-03-15 14:49] LABS: CHLORIDE,CL 107 mmol/L (98-107); SODIUM,NA 141 mmol/L (136-145)
[2020-03-15 14:50] LABS: ACETAMINOPHEN 0 ug/ml (10-30); ANION GAP 12.7 mmol/L (10-20)
--- NOTE | 2020-03-15 15:11 | CT ---
[id number] CT/CT Head WO IV EXAM: CT Head WO IV CLINICAL DATA: ALTERED LEVEL OF CONSCIOUSNESS COMPARISON STUDY: 2013. FINDINGS: No intracranial hemorrhage, extra-axial fluid collection, mass, or acute ischemia. No hydrocephalus. Paranasal sinuses and mastoid air cells are clear. IMPRESSION: Negative examination of the brain. Margarito Rivera MD 03/15/20 2339 Thank you for allowing us to participate in the care of your patient.
[2020-03-15] MEDS ORDERED: Lactated Ringers 1,000 ML IV ONE (17:11)
[2020-03-15] MEDS ORDERED: Lactated Ringers 1,000 ML IV SCH (17:15)
[2020-03-15] MEDS: ClonazePAM 0.5 MG Tab PO SCH (22:33)
[2020-03-15] MEDS: traMADol 50 MG Tab PO SCH (22:34)
[2020-03-15] MEDS: Topiramate 50 MG Tab PO SCH (22:34)
[2020-03-15] MEDS: Gabapentin 300 MG Cap PO SCH (22:34)
[2020-03-15] MEDS: Acetaminophen 500 MG Tab PO SCH (22:35)
[2020-03-15] MEDS: Lactated Ringers 1,000 ML IV SCH (22:39)
[2020-03-16] MEDS: Lactated Ringers 1,000 ML IV SCH (04:18)
[2020-03-16] MEDS ORDERED: Omeprazole 20 MG Cap.CR PO SCH (07:00)
[2020-03-16 07:18] LABS: CHLORIDE,CL 110 mmol/L (98-107); SODIUM,NA 143 mmol/L (136-145)
[2020-03-16 07:19] LABS: ANION GAP 11.5 mmol/L (10-20)
[2020-03-16] MEDS ORDERED: Vitamin B Complex Tab PO SCH (08:00)
[2020-03-16] MEDS ORDERED: Ascorbic Acid 500 MG Tab PO SCH (08:00)
[2020-03-16] MEDS ORDERED: Cyanocobalamin (Vitamin B12) 1,000 MCG Tab PO SCH (08:00)
[2020-03-16] MEDS ORDERED: Venlafaxine 75 MG Cap.ER PO SCH (08:00)
[2020-03-16] MEDS ORDERED: Fluticasone Propionate Nasal Spray 9.9 ML BOTTLE NASBOTH SCH (08:00)
[2020-03-16] MEDS: Acetaminophen 500 MG Tab PO SCH (08:02)
[2020-03-16] MEDS: traMADol 50 MG Tab PO SCH (08:03)
[2020-03-16] MEDS: ClonazePAM 0.5 MG Tab PO SCH (08:04)
[2020-03-16] MEDS: Topiramate 50 MG Tab PO SCH (08:05)
[2020-03-16] MEDS: Gabapentin 300 MG Cap PO SCH (08:06)
[2020-03-16] MEDS: Dicyclomine 10 MG Cap PO SCH ×2 (08:06→12:23)
--- NOTE | 2020-03-16 14:23 | PCM.DCSUM1 ---
Discharge Summary - Hospital Course HPI Initial Comments: Patient comes emergency department today by ambulance from home with complaints of weakness and falls. It is rather difficult to obtain the HPI from this patient because the consistency of her story is that it is rather inconsistent. She reports that today for some reason she has been walking around her house and falling all over and her legs are not working like they are used to. She is unsure if this started this morning this afternoon last night or yesterday. She has had a stroke in the past. She is unsure of when it was or what it affected. No headache or visual disturbances. She denies any paresthesias of her upper or lower extremities. She relates that her lower extremities just do not work like they typically do equally bilaterally. She has no chest pain shortness of breath or difficulty breathing. No cough or congestion. No syncope. No palpitations. No abdominal pain nausea or vomiting. No fever or chills. She relates that she did start a new medication Wellbutrin just a couple of days ago. She has been taking her trazodone and her tramadol and other medications such as Topamax and gabapentin as prescribed. She denies taking any medications in an attempt to harm. She denies taking any medications inappropriately in a recreational manner. She denies any recreational drug use or alcohol use. She is unsure if she has any loc. No COVID exposure no COVID symptoms. Per EMS she is well known to EMS and well known as a polysubstance user and abuser. Diagnosis: Stroke: No - Discharge Data Discharge Date: 03/16/20 Discharge Disposition: Home, Self-Care 01 Condition: Stable - Referral to Home Health Primary Care Physician: Re Smith MD - Discharge Diagnosis/Problem(s) (1) Polysubstance abuse SNOMED Code(s): 186828324 ICD Code: F19.10 - OTHER PSYCHOACTIVE SUBSTANCE ABUSE, UNCOMPLICATED Status: Acute (2) Personality disorder SNOMED Code(s): 49667494 ICD Code: F60.9 - PERSONALITY DISORDER, UNSPECIFIED Status: Chronic (3) Narcotic dependence SNOMED Code(s): 384116769 ICD Code: F11.20 - OPIOID DEPENDENCE, UNCOMPLICATED Status: Chronic (4) Chronic lower back pain SNOMED Code(s): 318876821 ICD Code: M54.5 - LOW BACK PAIN; G89.29 - OTHER CHRONIC PAIN Status: Acute Qualifiers: Back pain laterality: bilateral Sciatica presence: without sciatica Qualified Code(s): M54.5 - Low back pain; G89.29 - Other chronic pain (5) Agitation SNOMED Code(s): 406368438 ICD Code: R45.1 - RESTLESSNESS AND AGITATION Status: Acute (6) Opioid dependence SNOMED Code(s): 66069642 ICD Code: F11.20 - OPIOID DEPENDENCE, UNCOMPLICATED Status: Acute Qualifiers: Substance use status: with unspecified opioid-induced disorder Qualified Code(s): F11.29 - Opioid dependence with unspecified opioid-induced disorder (7) Unsteady gait when walking SNOMED Code(s): 98783503 ICD Code: R26.81 - UNSTEADINESS ON FEET Status: Acute - Patient Summary/Data Consults: Consultations 03/15/20 20:26 Consult to Case Management/[facility] [CONS] Routine PT Evaluation and Treatment [CONS] Routine Hospital Course: This patient was admitted into the hospital under observation for concerns of acute agitation somewhat confusion and some unsteadiness on her legs and falling at home. This patient has a rather long history of psychiatric disorder. She also has some concerns for history of substance misuse and abuse. She had recently had an increase in her Wellbutrin from 150 mg to 300 mg a day. Her initial work-up was rather negative. CT of her head was normal. She had no focal neurological deficits. I had spoke with the patient's primary care provider and stated some of this is chronic for her with her agitation tangential thoughts and flight of ideas. Her primary care was unaware of her having an unsteady gait and/or confusion in the past. Her primary care provider had similar concerns of substance misuse. Her urinary drug screen was negative. She was placed into the hospital under observation all of her chronic medications were continued except for her Wellbutrin was reduced from 300 mg 250 mg. She was hydrated with fluid during the night. In the morning she was much more clear in her conversation. She was able to stay on task and carry on a conversation. She still had quite a bit of a mood lability where she would fluctuate from crying to laughing although this is chronic for her according to the patient as well as her primary care provider. Urine drug screen was negative and a repeat laboratory evaluation was unremarkable. She was evaluated by physical therapy and found that she is safe to go home as long as she is using her walker. I am unsure of what is causing her unsteadiness but according to the patient this has been going on for years. She was evaluated by the crisis team from the the [facility]. They came to the hospital and saw her in the hospital. They feel that she is safe to go home but they will step up her therapies and assistance at home. Our vp digital marketing social media and crm Jane has gotten an application for a life alert for her at home. She really would like to go home at this time. We will discharge her home at this time with close follow-up with [facility] as well as an appointment the next day with her primary care provider to look at some home health. I will continue her Wellbutrin at 150 mg a day as I have concern that this may have been causing her agitation confusion especially with the large amount of other psychoactive medications that she is on. The patient is comfortable with this plan and her questions are answered. - Patient Instructions Diet: Usual Diet as Tolerated Driving: Do Not Drive Showering/Bathing: May Shower Other/Special Instructions: Home today with [facility]. See Dr. Smith tomorrow in the clinic as planned at 10am. Use your walker at all times at home for ambulation to prevent falls. Continue all your previous medications ex pect I want you to decrease your Wellbutrin XL to 150mg by mouth everyday as this may have been the reason for your agitation and confusion yesterday which resolved after we decreased the dose. Recheck in the clinic tomorrow. Jane from [employer] has applied for a LifeAlert for you at home to help you if you fall. Keep appiontments and guidance by [facility] as well. - Discharge Plan *PRESCRIPTION DRUG MONITORING PROGRAM REVIEWED*: Not Applicable *COPY OF PRESCRIPTION DRUG MONITORING REPORT IN PATIENT JUANITA: Not Applicable Home Medications: Home Meds ClonazePAM [KlonoPIN] 2 mg PO BID 08/19/13 [History] Topiramate [Topamax] 100 mg PO BID 08/19/13 [History] traMADol HCl [Ultram] 100 mg PO BID 08/19/13 [History] Cyanocobalamin (Vitamin B-12) [Vitamin B-12] 1,000 mcg PO DAILY 08/04/16 [History] Fluticasone Propionate [Flonase] 2 sprays NASBOTH DAILY 08/04/16 [History] Omeprazole Magnesium [Prilosec Otc] 20 mg PO DAILY 08/04/16 [History] traZODone HCl [Trazodone HCl] 150 mg PO BEDTIME 08/04/16 [History] Venlafaxine [Effexor XR] 225 mg PO DAILY 01/04/19 [History] Doxycycline [Vibramycin] 100 mg PO BID #20 cap 09/09/19 [Rx] Acetaminophen [Tylenol Extra Strength] 1,000 mg PO BID 03/15/20 [History] Ascorbic Acid [Vitamin C] 250 mg PO DAILY 03/15/20 [History] Dicyclomine [Bentyl] 10 mg PO QID 03/15/20 [History] Gabapentin [Neurontin] 300 mg PO BID 03/15/20 [History] Vitamin B Complex 1 each PO DAILY 03/15/20 [History] buPROPion HCL [Wellbutrin Xl] 150 mg PO DAILY 03/15/20 [History] Forms: ED Department Discharge Referrals: Re Smith MD [Primary Care Provider] - - Discharge Summary/Plan Comment DC Time >30 min.: Yes - General Info Date of Service: 03/16/20 Admission Dx/Problem (Free Text: agitation unsteady with ambulation. Subjective Update: The patient has slept well during the night. She does feel quite a bit better. She does not feel so anxious and somewhat confused like she did when she came into the emergency department. She still is unsteady on her feet. Although she now tells me that this is a chronic problem that she has had for quite some time where her legs give out and she falls at home. She has eaten breakfast well. She really would like to go home. Functional Status: Reports: Pain Controlled - Review of Systems General: Reports: No Symptoms HEENT: Reports: No Symptoms Pulmonary: Reports: No Symptoms Cardiovascular: Reports: No Symptoms Gastrointestinal: Reports: No Symptoms Genitourinary: Reports: Incontinence Musculoskeletal: Reports: No Symptoms Skin: Reports: No Symptoms Neurological: Reports: No Symptoms Psychiatric: Reports: Mood Lability (chronic and very rapid changes normal for her. ), Anxiety - Patient Data Vitals - Most Recent: Last Vital Signs Temp 96.1 F L 03/16/20 14:00 Pulse 78 03/16/20 14:00 Resp 16 03/16/20 10:00 BP 109/69 03/16/20 14:00 Pulse Ox 95 03/16/20 14:00 Weight - Most Recent: 193 lb 3.2 oz I&O - Last 24 hours: Intake & Output 03/15/20 03/16/20 03/16/20 22:59 06:59 14:59 Intake Total 999 2625 180 Balance 999 2625 180 Lab Results - Last 24 hrs: Laboratory Results - last 24 hr 03/15/20 03/15/20 03/15/20 Range/Units 14:17 14:17 14:17 WBC 11.5 H (4.0-10.0) x10^3/uL RBC 4.31 (4.00-5.50) x10^6/uL Hgb 12.6 (12.0-16.0) g/dL Hct 37.7 (33.0-47.0) % MCV 87.5 (78.0-93.0) fL MCH 29.2 (26.0-32.0) pg MCHC 33.4 (32.0-36.0) g/dL RDW Coeff of Bisi 15.1 H (10.0-15.0) % Plt Count 355 (130-400) x10^3/uL Neut % (Auto) 39.7 L (50.0-80.0) % Lymph % (Auto) 49.7 (25.0-50.0) % [place] % (Auto) 7.7 (2.0-11.0) % Eos % (Auto) 2.5 (0.0-4.0) % Baso % (Auto) 0.4 (0.2-1.2) % Sodium 141 (136-145) mmol/L Potassium 3.7 (3.5-5.1) mmol/L Chloride 107 (98-107) mmol/L Carbon Dioxide 25 (21-32) mmol/L Anion Gap 12.7 (10-20) mmol/L BUN 12 (7-18) mg/dL Creatinine 1.0 (0.55-1.02) mg/dL Est Cr Clr Drug Dosing TNP Estimated GFR (MDRD) 58 Glucose 99 (74-106) mg/dL Calcium 8.7 (8.5-10.1) mg/dL Corrected Calcium 9.02 (8.5-10.1) mg/dL Total Bilirubin 0.2 (0.2-1.0) mg/dL AST 15 (15-37) U/L ALT 16 (14-59) U/L Alkaline Phosphatase 128 H (46-116) U/L Troponin I < 0.017 (<=0.056) ng/mL Total Protein 7.5 (6.4-8.2) g/dL Albumin 3.6 (3.4-5.0) g/dL Globulin 3.9 Albumin/Globulin Ratio 0.92 TSH, Ultra Sensitive (0.358-3.74) uIU/mL Urine Color (YELLOW) Urine Appearance (CLEAR) Urine pH (5.0-8.0) Ur Specific [place] Urine Protein (NEGATIVE) mg/dL Urine Glucose (UA) (NEGATIVE) mg/dL Urine Ketones (NEGATIVE) mg/dL Urine Occult Blood (NEGATIVE) Urine Nitrite (NEGATIVE) Urine Bilirubin (NEGATIVE) Urine Urobilinogen (0.2) EU/dL Ur Leukocyte Esterase (NEGATIVE) Salicylates <2.5 L (15.0-30.0) mg/dL Urine Opiates Screen (Negative) Acetaminophen 0 L (10-30) ug/ml Ur Barbiturates Screen (Negative) Ur Amphetamines Screen (Negative) U Benzodiazepines Scrn (Negative) Urine Cocaine Screen (Negative) U Cannabinoids Screen (Negative) Ethyl Alcohol < 3 (0-3) mg/dL Ur Creatinine mg/dL 03/15/20 03/15/20 03/15/20 Range/Units 14:17 17:43 17:43 WBC (4.0-10.0) x10^3/uL RBC (4.00-5.50) x10^6/uL Hgb (12.0-16.0) g/dL Hct (33.0-47.0) % MCV (78.0-93.0) fL MCH (26.0-32.0) pg MCHC (32.0-36.0) g/dL RDW Coeff of Bisi (10.0-15.0) % Plt Count (130-400) x10^3/uL Neut % (Auto) (50.0-80.0) % Lymph % (Auto) (25.0-50.0) % [place] % (Auto) (2.0-11.0) % Eos % (Auto) (0.0-4.0) % Baso % (Auto) (0.2-1.2) % Sodium (136-145) mmol/L Potassium (3.5-5.1) mmol/L Chloride (98-107) mmol/L Carbon Dioxide (21-32) mmol/L Anion Gap (10-20) mmol/L BUN (7-18) mg/dL Creatinine (0.55-1.02) mg/dL Est Cr Clr Drug Dosing Estimated GFR (MDRD) Glucose (74-106) mg/dL Calcium (8.5-10.1) mg/dL Corrected Calcium (8.5-10.1) mg/dL Total Bilirubin (0.2-1.0) mg/dL AST (15-37) U/L ALT (14-59) U/L Alkaline Phosphatase (46-116) U/L Troponin I (<=0.056) ng/mL Total Protein (6.4-8.2) g/dL Albumin (3.4-5.0) g/dL Globulin Albumin/Globulin Ratio TSH, Ultra Sensitive 0.928 (0.358-3.74) uIU/mL Urine Color Yellow (YELLOW) Urine Appearance Clear (CLEAR) Urine pH 6.5 (5.0-8.0) Ur Specific [place] 1.010 Urine Protein Negative (NEGATIVE) mg/dL Urine Glucose (UA) Negative (NEGATIVE) mg/dL Urine Ketones Negative (NEGATIVE) mg/dL Urine Occult Blood Negative (NEGATIVE) Urine Nitrite Negative (NEGATIVE) Urine Bilirubin Negative (NEGATIVE) Urine Urobilinogen 0.2 (0.2) EU/dL Ur Leukocyte Esterase Negative (NEGATIVE) Salicylates (15.0-30.0) mg/dL Urine Opiates Screen Neg (Negative) Acetaminophen (10-30) ug/ml Ur Barbiturates Screen Neg (Negative) Ur Amphetamines Screen Neg (Negative) U Benzodiazepines Scrn Neg (Negative) Urine Cocaine Screen Neg (Negative) U Cannabinoids Screen Neg (Negative) Ethyl Alcohol (0-3) mg/dL Ur Creatinine 13 mg/dL 03/16/20 03/16/20 Range/Units 06:40 06:40 WBC 9.6 (4.0-10.0) x10^3/uL RBC 4.20 (4.00-5.50) x10^6/uL Hgb 12.2 (12.0-16.0) g/dL Hct 37.1 (33.0-47.0) % MCV 88.3 (78.0-93.0) fL MCH 29.0 (26.0-32.0) pg MCHC 32.9 (32.0-36.0) g/dL RDW Coeff of Bisi 15.3 H (10.0-15.0) % Plt Count 359 (130-400) x10^3/uL Neut % (Auto) 28.8 L (50.0-80.0) % Lymph % (Auto) 57.4 H (25.0-50.0) % [place] % (Auto) 9.9 (2.0-11.0) % Eos % (Auto) 3.6 (0.0-4.0) % Baso % (Auto) 0.3 (0.2-1.2) % Sodium 143 (136-145) mmol/L Potassium 3.5 (3.5-5.1) mmol/L Chloride 110 H (98-107) mmol/L Carbon Dioxide 25 (21-32) mmol/L Anion Gap 11.5 (10-20) mmol/L BUN 11 (7-18) mg/dL Creatinine 1.0 (0.55-1.02) mg/dL Est Cr Clr Drug Dosing TNP Estimated GFR (MDRD) 58 Glucose 94 (74-106) mg/dL Calcium 8.5 (8.5-10.1) mg/dL Corrected Calcium 9.22 (8.5-10.1) mg/dL Total Bilirubin 0.2 (0.2-1.0) mg/dL AST 15 (15-37) U/L ALT 15 (14-59) U/L Alkaline Phosphatase 113 (46-116) U/L Troponin I (<=0.056) ng/mL Total Protein 6.9 (6.4-8.2) g/dL Albumin 3.1 L (3.4-5.0) g/dL Globulin 3.8 Albumin/Globulin Ratio 0.82 TSH, Ultra Sensitive (0.358-3.74) uIU/mL Urine Color (YELLOW) Urine Appearance (CLEAR) Urine pH (5.0-8.0) Ur Specific [place] Urine Protein (NEGATIVE) mg/dL Urine Glucose (UA) (NEGATIVE) mg/dL Urine Ketones (NEGATIVE) mg/dL Urine Occult Blood (NEGATIVE) Urine Nitrite (NEGATIVE) Urine Bilirubin (NEGATIVE) Urine Urobilinogen (0.2) EU/dL Ur Leukocyte Esterase (NEGATIVE) Salicylates (15.0-30.0) mg/dL Urine Opiates Screen (Negative) Acetaminophen (10-30) ug/ml Ur Barbiturates Screen (Negative) Ur Amphetamines Screen (Negative) U Benzodiazepines Scrn (Negative) Urine Cocaine Screen (Negative) U Cannabinoids Screen (Negative) Ethyl Alcohol (0-3) mg/dL Ur Creatinine mg/dL Med Orders - Current: Current Medications Acetaminophen (Tylenol Extra Strength) 1,000 mg PO BID [facility] Last Admin: 03/16/20 08:02 Dose: 1,000 mg Documented by: Ascorbic Acid (Vitamin C) 250 mg PO DAILY [facility] Last Admin: 03/16/20 08:04 Dose: 250 mg Documented by: Clonazepam (Klonopin) 2 mg PO BID [facility] Last Admin: 03/16/20 08:04 Dose: 2 mg Documented by: Cyanocobalamin (Vitamin B12) 1,000 mcg PO DAILY [facility] Last Admin: 03/16/20 08:06 Dose: 1,000 mcg Documented by: Dicyclomine HCl (Bentyl) 10 mg PO QID [facility] Last Admin: 03/16/20 12:23 Dose: 10 mg Documented by: Fluticasone Propionate (Fluticasone Propionate) 0 ml NASBOTH DAILY [facility] Last Admin: 03/16/20 08:05 Dose: 1 puff Documented by: Gabapentin (Neurontin) 300 mg PO BID [facility] Last Admin: 03/16/20 08:06 Dose: 300 mg Documented by: Lactated Ringer's (Ringers, Lactated) 1,000 mls @ 125 mls/hr IV ASDIRECTED [facility] Last Admin: 03/16/20 04:18 Dose: 125 mls/hr Documented by: Omeprazole (Omeprazole) 20 mg PO DAILY@0700 [facility] Last Admin: 03/16/20 06:28 Dose: 20 mg Documented by: Sodium Chloride (Saline Flush) 10 ml FLUSH ASDIRECTED PRN PRN Reason: Keep Vein Open Topiramate (Topamax) 100 mg PO BID [facility] Last Admin: 03/16/20 08:05 Dose: 100 mg Documented by: Tramadol HCl (Ultram) 100 mg PO BID [facility] Last Admin: 03/16/20 08:03 Dose: 100 mg Documented by: Trazodone HCl (Trazodone) 150 mg PO BEDTIME [facility] Venlafaxine HCl (Effexor Xr) 225 mg PO DAILY [facility] Last Admin: 03/16/20 08:05 Dose: 225 mg Documented by: Vitamin B Complex (Vitamin B Complex) 1 each PO DAILY [facility] Last Admin: 03/16/20 08:05 Dose: 1 each Documented by: Discontinued Medications Lactated Ringer's (Ringers, Lactated) 1,000 mls @ 125 mls/hr IV ASDIRECTED [facility] Lactated Ringer's (Ringers, Lactated) 1,000 mls @ 999 mls/hr IV ONETIME ONE Stop: 03/15/20 18:11 Last Admin: 03/15/20 20:20 Dose: 999 mls/hr Documented by: - Exam General: Reports: Alert, Oriented HEENT: Reports: Pupils Equal, Pupils Reactive, EOMI, Mucous Membr. Moist/[place] Neck: Reports: Supple Lungs: Reports: Clear to Auscultation, Normal Respiratory Effort Cardiovascular: Reports: Regular Rate, Regular Rhythm GI/Abdominal Exam: Normal Bowel Sounds, Soft, Non-Tender Back Exam: Reports: Normal Inspection, Full Range of Motion Extremities: Normal Inspection, Normal Range of Motion, Non-Tender, No Pedal Edema, Normal Capillary Refill Skin: Reports: Warm, Dry, Intact Neurological: Reports: No New Focal Deficit Psy/Mental Status: Reports: Alert, Labile Mood (She has very rapid fluctuations of her mood in the room. She goes from laughing to crying at times. Her agitation and confusion and flight of ideas and tangential thoughts is much improved. She is able to stay on task and conversation this morning when I evaluate her.), Anxious. Denies: Depressed, Suicidal Ideation, Homicidal Ideat ion, Hallucinations, Withdrawal Symptoms
[2020-03-16] MEDS ORDERED: traZODone 50 MG Tab PO SCH (20:00)
== END 2020-03-16 15:45 | disposition home or self-care (01) ==
LOC: VM.ED 13:49 → VM.MS 19:33
PROVIDERS: ADMIT Nurse Practitioner Family; ATTEND Nurse Practitioner Family
DX: R45.1 Restlessness and agitation (principal); R26.81 Unsteadiness on feet; F11.29 Opioid dependence with unspecified opioid-induced disorder; F60.9 Personality disorder, unspecified; F19.10 Other psychoactive substance abuse, uncomplicated; M54.5 Low back pain; G89.29 Other chronic pain; F32.9 Major depressive disorder, single episode, unspecified; Z79.899 Other long term (current) drug therapy; Z88.2 Allergy status to sulfonamides; Z88.5 Allergy status to narcotic agent
CPT/HCPCS: 36415; 70450; 80053; 80307; 81003; 84443; 84484; 85025; 93005; 93010; 96360; 96361; 97161-GP; 99217; 99220; 99285-25; A9270-GY; G0378; J7120

== ENCOUNTER 2020-11-28 13:50 | Emergency (ER) | payer MEDICARE, MEDICAID ==
[2020-11-28] MEDS ORDERED: Sodium Chloride 0.9% 10 ML Syringe FLUSH PRN (14:28)
--- NOTE | 2020-11-28 14:37 | EDM.PDOC ---
ED HPI GENERAL MEDICAL PROBLEM - General Stated Complaint: FALLING EPISODES Time Seen by Provider: 11/28/20 14:36 Source of Information: Reports: Patient History Limitations: Reports: No Limitations - History of Present Illness INITIAL COMMENTS - FREE TEXT/NARRATIVE: Pt. presents to ER with complaints of headache and head, facial, and abdominal pain post fall. Pt. states that she feel this AM at 0400, injuring the R side of her head and her abdomen (she states that she landed across her bathtub). Pt. states that she has been falling frequently for the past 2 years, since she had back surgery. She states that she has not addressed with problem with her PCP or the surgeon who did her back surgery. She states that she has not done PT or OT. She states that she has a walker but does not use it frequently. Pt. states that she "doesn't think" she has any chest pain, shortness of breath, lightheadedness, or other sequelae prior to the fall. Pt. denies any neck or back pain since the fall. Pt. denies any numbness/tingling in extremities or face, no problems with speech, no vision loss or change. She presented to ER with frequent falls and concerns of symptoms of polypharmacy in 2019. She was actually admitted overnight. She was sent home, told to use her walker at that time, which she has not been using. She has also had 3 different orders for lumbar MRI (03/2020, 05/2020, 08/2020) but this has yet to be done. Pt. states that she has troubles getting to [place]. [facility] relates that the patient does not answer her phone. Pt. was informed of this, and states that her phone is on. Ava will be faxing an order for the MRI to [facility] so that she can have her CT locally. Onset: Today Onset Date: 11/28/20 - Related Data Allergies Allergy/AdvReac Type Severity Reaction Status Date / Time Sulfa (Sulfonamide Allergy Intermediate Hives Verified 11/28/20 14:35 Antibiotics) codeine Allergy Hives Verified 11/28/20 14:35 Home Meds: Home Meds ClonazePAM [KlonoPIN] 2 mg PO BID 08/19/13 [History] Topiramate [Topamax] 100 mg PO BID 08/19/13 [History] traMADol HCl [Ultram] 100 mg PO BID 08/19/13 [History] Cyanocobalamin (Vitamin B-12) [Vitamin B-12] 1,000 mcg PO DAILY 08/04/16 [History] Fluticasone Propionate [Flonase] 2 sprays NASBOTH DAILY 08/04/16 [History] Omeprazole Magnesium [Prilosec Otc] 20 mg PO DAILY 08/04/16 [History] traZODone HCl [Trazodone HCl] 150 mg PO BEDTIME 08/04/16 [History] Venlafaxine [Effexor XR] 225 mg PO DAILY 01/04/19 [History] Doxycycline [Vibramycin] 100 mg PO BID #20 cap 09/09/19 [Rx] Acetaminophen [Tylenol Extra Strength] 1,000 mg PO BID 03/15/20 [History] Ascorbic Acid [Vitamin C] 250 mg PO DAILY 03/15/20 [History] Dicyclomine [Bentyl] 10 mg PO QID 03/15/20 [History] Gabapentin [Neurontin] 300 mg PO BID 03/15/20 [History] Vitamin B Complex 1 each PO DAILY 03/15/20 [History] buPROPion HCL [Wellbutrin Xl] 150 mg PO DAILY 03/15/20 [History] Past Medical History HEENT History: Reports: Allergic Rhinitis Other HEENT History: Dental caries. 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 STARTING GATE History: Reports: Other (See Below) Other DRIVER STARTING GATE History: menorrhagia Musculoskeletal History: Reports: Fibromyalgia Other Musculoskeletal History: family history of polymositis Neurological History: Reports: Migraines, Other (See Below) Other Neuro History: family history of charcot sofy tooth Psychiatric History: Reports: Anxiety, Depression Other Psychiatric History: Tobacco use disorder; Personality disorder; Opioid dependence Endocrine/Metabolic History: Reports: Hypothyroidism Hematologic History: Reports: B12 Deficiency - Infectious Disease History Infectious Disease History: Reports: Hepatitis C - Past Surgical History HEENT Surgical History: Reports: None GI Surgical History: Reports: Other (See Below) Other GI Surgeries/Procedures: splenectomy Musculoskeletal Surgical History: Reports: None Dermatological Surgical History: Reports: None Social & Family History - Family History Family Medical History: No Pertinent Family History - Caffeine Use Caffeine Use: Reports: Coffee, Soda ED ROS GENERAL - Review of Systems Review Of Systems: See Below Constitutional: Reports: No Symptoms HEENT: Reports: Other (struck R temoral area) Respiratory: Reports: No Symptoms Cardiovascular: Reports: No Symptoms Endocrine: Reports: No Symptoms GI/Abdominal: Reports: Abdominal Pain. Denies: Black Stool, Bloody Stool, Diarrhea, Hematemesis, Hematochezia, Melena : Reports: No Symptoms Musculoskeletal: Reports: Other (frequent falls due to chronic back pain) Skin: Reports: No Symptoms Neurological: Reports: No Symptoms Psychiatric: Reports: No Symptoms Hematologic/Lymphatic: Reports: No Symptoms Immunologic: Reports: No Symptoms ED EXAM, GENERAL - Physical Exam Exam: See Below Exam Limited By: No Limitations General Appearance: Alert, WD/WN, No Apparent Distress Eye Exam: Bilateral Eye: EOMI Ears: Normal External Exam, Hearing Grossly Normal, Normal TMs Nose: Normal Inspection Throat/Mouth: Normal Inspection, Normal Lips, Normal Oropharynx, Normal Voice, No Airway Compromise Head: Normocephalic, Other (superficial laceration/abrasion noted to lateral aspect of R orbit. Pt. has some ecchymosis to R lower lateral orbit as well. No obvious eye entrapment/crepitus noted to area.) Neck: Normal Inspection, Supple, Non-Tender, Full Range of Motion Respiratory/Chest: No Respiratory Distress, Lungs Clear, Normal Breath Sounds, No Accessory Muscle Use, Chest Non-Tender Cardiovascular: Normal Peripheral Pulses, Regular Rate, Rhythm, No Edema, No JVD, No Murmur Peripheral Pulses: 4+: Radial (L) GI/Abdominal: Soft, No Distention, No Mass, Tender (diffusely tender throughout) (Female) Exam: Deferred Rectal (Female) Exam: Deferred Back Exam: Normal Inspection, Full Range of Motion Extremities: Normal Inspection, Normal Range of Motion, Non-Tender, No Pedal Edema, Normal Capillary Refill Neurological: Alert, Oriented, CN II-XII Intact, Normal Cognition, Normal Gait, Normal Reflexes, No Motor/Sensory Deficits Psychiatric: Anxious, Tearful Skin Exam: Warm, Dry, Intact #1 Interpretation Rhythm: NSR [place]: Normal P-Wave: Present QRS: Normal ST-T: Normal QT: Normal Course - Vital Signs Last Recorded V/S: Last Vital Signs Temp 36.8 C 11/28/20 13:55 Pulse 66 11/28/20 13:55 Resp 18 11/28/20 13:55 BP 103/54 L 11/28/20 13:55 Pulse Ox 96 11/28/20 13:55 - Orders/Labs/Meds Orders: Active Orders 24 hr Category Date Time Status EKG Documentation Completion [RC] STAT Care 11/28/20 14:37 Active Sodium Chloride 0.9% [Saline Flush] Med 11/28/20 14:28 Active 10 ml FLUSH ASDIRECTED PRN Peripheral IV Insertion Adult [OM.PC] Routine Oth 11/28/20 14:28 Ordered Medication Orders Sodium Chloride (Sodium Chloride 0.9% 10 Ml Syringe) 10 ml FLUSH ASDIRECTED PRN PRN Reason: Keep Vein Open Labs: Laboratory Tests 11/28/20 11/28/20 11/28/20 Range/Units 14:37 14:37 14:37 WBC 13.6 H (4.0-10.0) x10^3/uL RBC 4.65 (4.00-5.50) x10^6/uL Hgb 13.9 D (12.0-16.0) g/dL Hct 40.1 (33.0-47.0) % MCV 86.2 (78.0-93.0) fL MCH 29.9 (26.0-32.0) pg MCHC 34.7 (32.0-36.0) g/dL RDW Coeff of Bisi 15.6 H (10.0-15.0) % Plt Count 355 (130-400) x10^3/uL Neut % (Auto) 57.4 (50.0-80.0) % Lymph % (Auto) 35.0 (25.0-50.0) % Jack % (Auto) 5.7 (2.0-11.0) % Eos % (Auto) 1.6 (0.0-4.0) % Baso % (Auto) 0.3 (0.2-1.2) % PT 11.8 (9.9-12.5) SEC INR 1.1 L (2.0-3.5) APTT 24.8 L (25.6-32.8) SEC Sodium 139 (136-145) mmol/L Potassium 3.7 (3.5-5.1) mmol/L Chloride 105 (98-107) mmol/L Carbon Dioxide 24 (21-32) mmol/L Anion Gap 13.7 (5-15) mmol/L BUN 13 (7-18) mg/dL Creatinine 1.0 (0.55-1.02) mg/dL Est Cr Clr Drug Dosing TNP Estimated GFR (MDRD) 58 Glucose 76 (70-99) mg/dL Calcium 8.5 (8.5-10.1) mg/dL Corrected Calcium 8.8 (8.5-10.1) mg/dL Magnesium 2.0 (1.8-2.4) mg/dL Total Bilirubin 0.2 (0.2-1.0) mg/dL AST 15 (15-37) U/L ALT 17 (14-59) U/L Alkaline Phosphatase 110 (46-116) U/L Troponin I High Sens 5 (<=51) ng/L Total Protein 8.0 (6.4-8.2) g/dL Albumin 3.6 (3.4-5.0) g/dL Globulin 4.4 Albumin/Globulin Ratio 0.82 Urine Color (YELLOW) Urine Appearance (CLEAR) Urine pH (5.0-8.0) Ur Specific [place] Urine Protein (NEGATIVE) mg/dL Urine Glucose (UA) (NEGATIVE) mg/dL Urine Ketones (NEGATIVE) mg/dL Urine Occult Blood (NEGATIVE) Urine Nitrite (NEGATIVE) Urine Bilirubin (NEGATIVE) Urine Urobilinogen (0.2) EU/dL Ur Leukocyte Esterase (NEGATIVE) Urine Opiates Screen (NEGATIVE) Ur Buprenorphine Scrn (NEGATIVE) Ur Oxycodone Screen (NEGATIVE) Urine Methadone Screen (NEGATIVE) Ur Barbiturates Screen (NEGATIVE) Ur Phencyclidine Scrn (NEGATIVE) Ur Amphetamine Screen (NEGATIVE) U Methamphetamines Scrn (NEGATIVE) Urine MDMA Screen (NEGATIVE) U Benzodiazepines Scrn (NEGATIVE) U Cocaine Metab Screen (NEGATIVE) U Marijuana (THC) Screen (NEGATIVE) Ethyl Alcohol (0-3) mg/dL 11/28/20 11/28/20 11/28/20 Range/Units 14:37 15:01 15:01 WBC (4.0-10.0) x10^3/uL RBC (4.00-5.50) x10^6/uL Hgb (12.0-16.0) g/dL Hct (33.0-47.0) % MCV (78.0-93.0) fL MCH (26.0-32.0) pg MCHC (32.0-36.0) g/dL RDW Coeff of Bisi (10.0-15.0) % Plt Count (130-400) x10^3/uL Neut % (Auto) (50.0-80.0) % Lymph % (Auto) (25.0-50.0) % Jack % (Auto) (2.0-11.0) % Eos % (Auto) (0.0-4.0) % Baso % (Auto) (0.2-1.2) % PT (9.9-12.5) SEC INR (2.0-3.5) APTT (25.6-32.8) SEC Sodium (136-145) mmol/L Potassium (3.5-5.1) mmol/L Chloride (98-107) mmol/L Carbon Dioxide (21-32) mmol/L Anion Gap (5-15) mmol/L BUN (7-18) mg/dL Creatinine (0.55-1.02) mg/dL Est Cr Clr Drug Dosing Estimated GFR (MDRD) Glucose (70-99) mg/dL Calcium (8.5-10.1) mg/dL Corrected Calcium (8.5-10.1) mg/dL Magnesium (1.8-2.4) mg/dL Total Bilirubin (0.2-1.0) mg/dL AST (15-37) U/L ALT (14-59) U/L Alkaline Phosphatase (46-116) U/L Troponin I High Sens (<=51) ng/L Total Protein (6.4-8.2) g/dL Albumin (3.4-5.0) g/dL Globulin Albumin/Globulin Ratio Urine Color Yellow (YELLOW) Urine Appearance Clear (CLEAR) Urine pH 6.5 (5.0-8.0) Ur Specific [place] 1.015 Urine Protein Negative (NEGATIVE) mg/dL Urine Glucose (UA) Negative (NEGATIVE) mg/dL Urine Ketones Negative (NEGATIVE) mg/dL Urine Occult Blood Negative (NEGATIVE) Urine Nitrite Negative (NEGATIVE) Urine Bilirubin Negative (NEGATIVE) Urine Urobilinogen 0.2 (0.2) EU/dL Ur Leukocyte Esterase Negative (NEGATIVE) Urine Opiates Screen Negative (NEGATIVE) Ur Buprenorphine Scrn Negative (NEGATIVE) Ur Oxycodone Screen Negative (NEGATIVE) Urine Methadone Screen Negative (NEGATIVE) Ur Barbiturates Screen Negative (NEGATIVE) Ur Phencyclidine Scrn Negative (NEGATIVE) Ur Amphetamine Screen Negative (NEGATIVE) U Methamphetamines Scrn Negative (NEGATIVE) Urine MDMA Screen Negative (NEGATIVE) U Benzodiazepines Scrn Negative (NEGATIVE) U Cocaine Metab Screen Negative (NEGATIVE) U Marijuana (THC) Screen Negative (NEGATIVE) Ethyl Alcohol < 3 (0-3) mg/dL Meds: Medications Generic Name Dose Route Start Last Admin Trade Name Freq PRN Reason Stop Dose Admin Sodium Chloride 10 ml 11/28/20 14:28 Sodium Chloride 0.9% 10 Ml Syringe FLUSH ASDIRECTED PRN Keep Vein Open Discontinued Medications Generic Name Dose Route Start Last Admin Trade Name Freq PRN Reason Stop Dose Admin Iopamidol 100 ml 11/28/20 14:58 11/28/20 15:42 Iopamidol 612 Mg/Ml 100 Ml Bottle IVPUSH 11/28/20 14:59 100 ml ONETIME ONE Administration Departure - Departure Time of Disposition: 16:39 Disposition: Home, Self-Care 01 Clinical Impression: Abdominal wall contusion, Closed head injury - Discharge Information Instructions: Head Injury, Adult, Contusion Referrals: Re Smith MD [Primary Care Provider] - Forms: ED Department Discharge Additional Instructions: Home to rest. The CT of your head and abdomen are both normal. I have arranged for you to have the MRI of your back performed here in [place]. The hospital will be contacting you regarding an appointment for this. The clinic and the hospital have been trying to get a hold of you and it goes straight to voicemail, so you need to make sure your phone is on and mailbox is empty. Follow-up with Dr. Smith, or someone in the clinic within 7-10 days. I think you would benefit from PT. They will need to arrange this. Use your walker to assist with walking. Sepsis Event Note (ED) - Focused Exam Vital Signs: Vital Signs Temp Pulse Resp BP Pulse Ox 11/28/20 13:55 36.8 C 66 18 103/54 L 96 - My Orders Last 24 Hours: My Active Orders 11/28/20 14:28 Sodium Chloride 0.9% [Saline Flush] 10 ml FLUSH ASDIRECTED PRN Peripheral IV Insertion Adult [OM.PC] Routine 11/28/20 14:37 EKG Documentation Completion [RC] STAT - Assessment/Plan Last 24 Hours: My Active Orders 11/28/20 14:28 Sodium Chloride 0.9% [Saline Flush] 10 ml FLUSH ASDIRECTED PRN Peripheral IV Insertion Adult [OM.PC] Routine 11/28/20 14:37 EKG Documentation Completion [RC] STAT Plan: Home to rest. The CT of your head and abdomen are both normal. I have arranged for you to have the MRI of your back performed here in [place]. The hospital will be contacting you regarding an appointment for this. The clinic and the hospital have been trying to get a hold of you and it goes straight to voicemail, so you need to make sure your phone is on and mailbox is empty. Follow-up with Dr. Smith, or someone in the clinic within 7-10 days. I think you would benefit from PT. They will need to arrange this. Use your walker to assist with walking.
[2020-11-28] MEDS ORDERED: Iopamidol 612 MG/ML 100 ML Bottle IVPUSH ONE (14:58)
[2020-11-28 15:01] LABS: PTT,PARTIAL THROMBOPLSTIN TIME 24.8 SEC (25.6-32.8)
[2020-11-28 15:08] LABS: CHLORIDE,CL 105 mmol/L (98-107); SODIUM,NA 139 mmol/L (136-145)
[2020-11-28 15:09] LABS: ANION GAP 13.7 mmol/L (5-15)
[2020-11-28 15:21] LABS: BARBITURATE SCREEN,URINE NEGATIVE (NEGATIVE); BENZODIAZEPINES SCREEN,URINE NEGATIVE (NEGATIVE); METHAMPHETAMINE SCREEN, URINE NEGATIVE (NEGATIVE); THC SCREEN,URINE 50 NG/ML NEGATIVE (NEGATIVE)
--- NOTE | 2020-11-28 16:12 | CT ---
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
--- NOTE | 2020-11-28 16:12 | CT ---
[id number] CT/CT Head WO IV EXAM: NONCONTRAST HEAD CT INDICATION: FELL, HIT HEAD, ? LOC. COMPARISON: March 15, 2020. DISCUSSION: The ventricles and sulci are normal in size and configuration. The lei and white matter are normal in attenuation. No mass effect or midline shift. No acute hemorrhage or extra-axial fluid collection. No acute territorial infarct is identified. A limited look at the orbits and paranasal sinuses is unremarkable. IMPRESSION: 1. Negative exam. Froilan Martinez MD 11/28/20 [id number] Thank you for allowing us to participate in the care of your patient.
== END 2020-11-28 16:45 | disposition home or self-care (01) ==
LOC: VM.ED 13:50
DX: S09.90XA Unspecified injury of head, initial encounter (principal); S30.1XXA Contusion of abdominal wall, initial encounter; S00.83XA Contusion of other part of head, initial encounter; K21.9 Gastro-esophageal reflux disease without esophagitis; G43.909 Migraine, unspecified, not intractable, without status migrainosus; Z88.2 Allergy status to sulfonamides; Z88.5 Allergy status to narcotic agent; Z79.899 Other long term (current) drug therapy; W19.XXXA Unspecified fall, initial encounter
CPT/HCPCS: 70450; 74177; 80053; 80305-QW; 80307; 81003; 83735; 84484; 85025; 85610; 85730; 93005; 93010; 99284; 99284-25; Q9967

== ENCOUNTER 2020-12-18 10:43 | Emergency (ER) | payer MEDICARE, MEDICAID ==
--- NOTE | 2020-12-19 04:22 | EDM.PDOC ---
ED HPI GENERAL MEDICAL PROBLEM - General Chief Complaint: General Stated Complaint: ED VISIT Time Seen by Provider: 12/18/20 10:45 Source of Information: Reports: Patient History Limitations: Reports: No Limitations - History of Present Illness INITIAL COMMENTS - FREE TEXT/NARRATIVE: Pt. presents to ER stating that she is out of her medications. She had called to clinic but to get an appointment but they would not see her, as she refuses to see psychiatry to have her medications managed. She was told to come to ER to get evaluated for benzodiazepine withdrawal. Pt. states that she has been out of her medications since Friday. She has an appointment with Dr. Portillo on Friday. Pt. has been quite non-compliant, missing numerous clinic appointments and appointments set up for her by the hospital. Her phone goes straight to [facility] and she does not answer when called. Pt. denies any suicidal or homicidal ideation. She denies any chest pain or shortness or breath. No seizure activity. Onset Date: 12/15/20 Generalized Pain Score (Numeric/FACES): 5 - Related Data Allergies Allergy/AdvReac Type Severity Reaction Status Date / Time Sulfa (Sulfonamide Allergy Intermediate Hives Verified 12/18/20 13:09 Antibiotics) codeine Allergy Hives Verified 12/18/20 13:09 Home Meds: Home Meds ClonazePAM [KlonoPIN] 2 mg PO BID 08/19/13 [History] Topiramate [Topamax] 100 mg PO BID 08/19/13 [History] traMADol HCl [Ultram] 100 mg PO BID 08/19/13 [History] Cyanocobalamin (Vitamin B-12) [Vitamin B-12] 1,000 mcg PO DAILY 08/04/16 [History] Fluticasone Propionate [Flonase] 2 sprays NASBOTH DAILY 08/04/16 [History] Omeprazole Magnesium [Prilosec Otc] 20 mg PO DAILY 08/04/16 [History] traZODone HCl [Trazodone HCl] 150 mg PO BEDTIME 08/04/16 [History] Venlafaxine [Effexor XR] 225 mg PO DAILY 01/04/19 [History] Acetaminophen [Tylenol Extra Strength] 1,000 mg PO BID 03/15/20 [History] Ascorbic Acid [Vitamin C] 250 mg PO DAILY 03/15/20 [History] Dicyclomine [Bentyl] 10 mg PO QID 03/15/20 [History] Gabapentin [Neurontin] 300 mg PO BID 03/15/20 [History] Vitamin B Complex 1 each PO DAILY 03/15/20 [History] buPROPion HCL [Wellbutrin Xl] 300 mg PO DAILY 03/15/20 [History] Albuterol Sulfate [Albuterol Sulfate HFA] 8.5 gm INH Q2H 12/18/20 [History] Ibuprofen 200 mg PO Q4H PRN 12/18/20 [History] L.acidoph,Paracasei, B.lactis [Probiotic] 1 each PO DAILY 12/18/20 [History] Melatonin 10 mg PO BEDTIME 12/18/20 [History] Potassium Chloride 10 meq PO DAILY 12/18/20 [History] Past Medical History HEENT History: Reports: Allergic Rhinitis Other HEENT History: Dental caries. 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 (See Below) Other CUSTOMER QUALITY SPECIALIST History: menorrhagia Musculoskeletal History: Reports: Fibromyalgia Other Musculoskeletal History: family history of polymositis Neurological History: Reports: Migraines, Other (See Below) Other Neuro History: family history of charcot sofy tooth Psychiatric History: Reports: Anxiety, Depression Other Psychiatric History: Tobacco use disorder; Personality disorder; Opioid dependence Endocrine/Metabolic History: Reports: Hypothyroidism Hematologic History: Reports: B12 Deficiency - Infectious Disease History Infectious Disease History: Reports: Hepatitis C - Past Surgical History HEENT Surgical History: Reports: None GI Surgical History: Reports: Other (See Below) Other GI Surgeries/Procedures: splenectomy Female Surgical History: Reports: Section Endocrine Surgical History: Reports: None Neurological Surgical History: Reports: Spinal Fusion, Other (See Below) Other Neurological Surgeries/Procedures: S/P lumbar spine surgery for decompression of spinal cord (06/09/2017) Musculoskeletal Surgical History: Reports: None Dermatological Surgical History: Reports: None Social & Family History - Family History Family Medical History: No Pertinent Family History - Caffeine Use Caffeine Use: Reports: Coffee, Soda ED ROS GENERAL - Review of Systems Review Of Systems: See Below Constitutional: Reports: No Symptoms HEENT: Reports: No Symptoms Respiratory: Reports: No Symptoms Cardiovascular: Reports: No Symptoms Endocrine: Reports: No Symptoms GI/Abdominal: Reports: No Symptoms : Reports: No Symptoms Musculoskeletal: Reports: No Symptoms Skin: Reports: No Symptoms Neurological: Reports: No Symptoms Psychiatric: Reports: Agitation, Anxiety. Denies: Confusion, Depression, Hallucinations, Homicidal Ideation, Suicidal Ideation Hematologic/Lymphatic: Reports: No Symptoms Immunologic: Reports: No Symptoms ED EXAM, GENERAL - Physical Exam Exam: See Below Exam Limited By: No Limitations General Appearance: Alert, WD/WN, No Apparent Distress Eye Exam: Bilateral Eye: EOMI, PERRL Head: Atraumatic, Normocephalic Respiratory/Chest: No Respiratory Distress, Lungs Clear, Normal Breath Sounds, No Accessory Muscle Use, Chest Non-Tender Cardiovascular: Normal Peripheral Pulses, Regular Rate, Rhythm, No JVD Neurological: Alert, Oriented, CN II-XII Intact, Normal Cognition, Normal Gait, No Motor/Sensory Deficits Psychiatric: Anxious, Tearful Skin Exam: Warm, Dry, Intact, Normal Color, No Rash Course - Vital Signs Last Recorded V/S: Last Vital Signs Temp 36.6 C 12/18/20 10:45 Pulse 82 12/18/20 10:45 Resp 16 12/18/20 10:45 BP 157/76 H 12/18/20 10:45 Pulse Ox 97 12/18/20 10:45 Departure - Departure Time of Disposition: 11:30 Disposition: Home, Self-Care 01 Clinical Impression: Anxiety - Discharge Information Referrals: Re Smith MD [Primary Care Provider] - Forms: ED Department Discharge Additional Instructions: Trazadone 150mg 1 every night before bed Topamax 100mg 1 twice daily Effexor XR 75mg 3 tabs once daily Clonazepam 2mg 1 twice daily Follow-up tomorrow at [facility] at 1:[address] Portillo Sepsis Event Note (ED) - Evaluation Sepsis Screening Result: No Definite Risk - Problem List Review Problem List Initiated/Reviewed/Updated: Yes - Assessment/Plan Plan: Pt. has not outward signs of bezodiazepine withdrawal, other than anxiety which is a frequent feature of the patient. She was given a 3 day course of clonazepam, topamax, trazodone, and Effexor XR. Clinic was contacted in her presence and she was scheduled to be seen to establish care with Dr. Portillo tomorrow. Advised to return to ER if she develops any homicidal or suicidal feelings, seizures, chest pain, shortness of breath, or other worrisome signs/symptoms.
== END 2020-12-18 11:30 | disposition home or self-care (01) ==
LOC: VM.ED 10:43
DX: F41.9 Anxiety disorder, unspecified (principal); K21.9 Gastro-esophageal reflux disease without esophagitis; Z79.899 Other long term (current) drug therapy
CPT/HCPCS: 99283; 99284

== ENCOUNTER 2021-08-21 10:42 | Emergency (ER) | payer MEDICARE, MEDICAID ==
[2021-08-21] MEDS: LORazepam 1 MG Tab PO ONE (11:22)
== END 2021-08-21 11:25 | disposition home or self-care (01) ==
LOC: VM.ED 10:42
DX: F19.239 Other psychoactive substance dependence with withdrawal, unspecified (principal); K21.9 Gastro-esophageal reflux disease without esophagitis; E03.9 Hypothyroidism, unspecified; Z88.2 Allergy status to sulfonamides; Z88.5 Allergy status to narcotic agent; Z79.899 Other long term (current) drug therapy; Z72.0 Tobacco use
CPT/HCPCS: 99283; A9270-GY

== ENCOUNTER 2021-12-03 16:44 | Emergency (ER) | payer OTHER, MEDICARE, MEDICAID | END 2021-12-03 18:23 | disposition home or self-care (01) | LOC: VM.ED 16:44 | DX: R51.9 Headache, unspecified (principal); K21.9 Gastro-esophageal reflux disease without esophagitis; Z88.2 Allergy status to sulfonamides; Z88.5 Allergy status to narcotic agent; Z79.899 Other long term (current) drug therapy; Z72.0 Tobacco use; V09.20XA Pedestrian injured in traffic accident involving unspecified motor vehicles, initial encounter; Y92.410 Unspecified street and highway as the place of occurrence of the external cause | CPT/HCPCS: 70450; 72070; 72100; 99284 ==

== ENCOUNTER 2023-01-22 19:55 | Emergency (ER) | payer MEDICARE, MEDICAID ==
[2023-01-22 20:26] LABS: BASOPHILS PERCENT AUTO 0.2 % (0.2-1.2); EOSINOPHILS PERCENT AUTO 0.1 % (0.0-4.0); HEMATOCRIT 34.9 % (33.0-47.0); HEMOGLOBIN 12.5 g/dL (12.0-16.0); IMMATURE GRAN ABSOLUTE AUTO 0.11 x10^3/uL (0.00-0.07); LYMPHOCYTES ABSOLUTE AUTO 2.7 x10^3/uL (1.0-4.8); LYMPHOCYTES PERCENT AUTO 19.7 % (25.0-50.0); MEAN CORPUSCULAR HEMOGLOBIN 30.3 pg (26.0-32.0); MEAN CORPUSCULAR HGB CONC 35.8 g/dL (32.0-36.0); MEAN CORPUSCULAR VOLUME 84.5 fL (78.0-93.0); MONOCYTES ABSOLUTE AUTO 1.1 x10^3/uL (0.0-0.8); MONOCYTES PERCENT AUTO 8.3 % (2.0-11.0); NEUTROPHILS ABSOLUTE AUTO 9.6 x10^3/uL (1.8-7.7); NEUTROPHILS PERCENT AUTO 70.9 % (50.0-80.0); PLATELET COUNT,PLT 435 x10^3/uL (130-400); RED BLOOD CELL COUNT 4.13 x10^6/uL (4.00-5.50); WHITE BLOOD CELL COUNT,WBC 13.5 x10^3/uL (4.0-10.0)
[2023-01-22 20:41] LABS: A/G RATIO 0.71; ANION GAP 18.4 mmol/L (5-15); C-REACTIVE PROTEIN 1.68 mg/dL (<=0.30); CALCIUM 8.6 mg/dL (8.5-10.1); CREATININE 0.8 mg/dL (0.55-1.02); EST CRCL DRUG DOSING (CG) 70.66 mL/min; POTASSIUM,K 3.4 mmol/L (3.5-5.1); PROTEIN TOTAL,TP 7.2 g/dL (6.4-8.2)
[2023-01-22 20:51] LABS: BILIRUBIN TOTAL 0.2 mg/dL (0.2-1.0)
[2023-01-22] MEDS ORDERED: Ketorolac 30 MG/ML SDV IM ONE (21:16)
[2023-01-22] MEDS ORDERED: cefTRIAXone 1 GM, Lidocaine 1% 2.1 ML IM ONE ×2 (21:16)
== END 2023-01-22 21:32 | disposition home or self-care (01) ==
LOC: VM.ED 19:55
DX: J20.9 Acute bronchitis, unspecified (principal); K21.9 Gastro-esophageal reflux disease without esophagitis; E03.9 Hypothyroidism, unspecified; F17.200 Nicotine dependence, unspecified, uncomplicated; Z79.899 Other long term (current) drug therapy; Z88.1 Allergy status to other antibiotic agents; Z88.5 Allergy status to narcotic agent
CPT/HCPCS: 36415; 71046; 80053; 85025; 86140; 96372; 99283; 99285; J0696; J1885; J3490

== ENCOUNTER 2023-06-29 08:29 | Emergency (ER) | payer MEDICARE, MEDICAID ==
[2023-06-29] MEDS: methylPREDNISolone Sodium Succinate 125 MG/2 ML SDV IM ONE (09:05)
[2023-06-29] MEDS: Albuterol/Ipratropium 3.0-0.5 MG/3 ML Neb Soln NEB ONE (09:13)
[2023-06-29 09:41] LABS: CORONAVIRUS COVID-19 NAA NEGATIVE (NEGATIVE); INFLUENZA A NAA NEGATIVE (NEGATIVE); INFLUENZA B NAA NEGATIVE (NEGATIVE); RESPIRATORY SYNCYTIAL VIR NAA NEGATIVE (NEGATIVE)
[2023-06-29] MEDS: Take Home: Doxycycline 100 MG Cap, 4 Cap Pack PO ONE (10:02)
== END 2023-06-29 10:14 | disposition home or self-care (01) ==
LOC: SUPCPDRO 08:29 → VM.ED 08:29
DX: J18.9 Pneumonia, unspecified organism (principal); K21.9 Gastro-esophageal reflux disease without esophagitis; E03.9 Hypothyroidism, unspecified; F17.210 Nicotine dependence, cigarettes, uncomplicated; Z90.49 Acquired absence of other specified parts of digestive tract; Z88.2 Allergy status to sulfonamides; Z88.8 Allergy status to other drugs, medicaments and biological substances; Z79.899 Other long term (current) drug therapy
CPT/HCPCS: 0241U; 71045; 94640; 96372; 99284; 99285; A9270-GY; J2930; J7620-GY

== ENCOUNTER 2023-11-05 19:40 | Emergency (ER) | payer MEDICARE, MEDICAID ==
[2023-11-05 19:59] LABS: BASOPHILS ABSOLUTE AUTO 0.1 x10^3/uL (0.0-0.2); BASOPHILS PERCENT AUTO 0.4 % (0.2-1.2); EOSINOPHILS PERCENT AUTO 0.3 % (0.0-4.0); HEMATOCRIT 40.4 % (33.0-47.0); HEMOGLOBIN 13.5 g/dL (12.0-16.0); IMMATURE GRAN ABSOLUTE AUTO 0.01 x10^3/uL (0.00-0.07); LYMPHOCYTES ABSOLUTE AUTO 4.3 x10^3/uL (1.0-4.8); LYMPHOCYTES PERCENT AUTO 36.7 % (25.0-50.0); MEAN CORPUSCULAR HEMOGLOBIN 29.5 pg (26.0-32.0); MEAN CORPUSCULAR HGB CONC 33.4 g/dL (32.0-36.0); MEAN CORPUSCULAR VOLUME 88.2 fL (78.0-93.0); MONOCYTES ABSOLUTE AUTO 1.6 x10^3/uL (0.0-0.8); NEUTROPHILS ABSOLUTE AUTO 5.7 x10^3/uL (1.8-7.7); NEUTROPHILS PERCENT AUTO 48.6 % (50.0-80.0); PLATELET COUNT,PLT 391 x10^3/uL (130-400); RED BLOOD CELL COUNT 4.58 x10^6/uL (4.00-5.50); WHITE BLOOD CELL COUNT,WBC 11.7 x10^3/uL (4.0-10.0)
[2023-11-05 20:16] LABS: MONOCYTES PERCENT AUTO 13.9 % (2.0-11.0)
[2023-11-05 20:18] LABS: ALANINE AMINOTRANSFERASE,ALT 15 U/L (14-59); ALBUMIN 3.3 g/dL (3.4-5.0); ALKALINE PHOSPHATASE 113 U/L (46-116); ASPARTATE AMNIOTRANSFERASE,AST 23 U/L (15-37); BILIRUBIN TOTAL 0.1 mg/dL (0.2-1.0); BLOOD UREA NITROGEN,BUN 13 mg/dL (7-18); CALCIUM 8.7 mg/dL (8.5-10.1); CARBON DIOXIDE,CO2 20 mmol/L (21-32); CHLORIDE,CL 101 mmol/L (98-107); CREATININE 1.1 mg/dL (0.55-1.02); GLUCOSE RANDOM 105 mg/dL (70-99); POTASSIUM,K 3.5 mmol/L (3.5-5.1); PROTEIN TOTAL,TP 7.4 g/dL (6.4-8.2); SODIUM,NA 137 mmol/L (136-145)
[2023-11-05 20:30] LABS: ANION GAP 19.5 mmol/L (5-15); ESTIMATED GFR 59 mL/min (>=60); ETHANOL BLOOD MEDICAL < 3 mg/dL (0-3)
[2023-11-05 21:03] LABS: BILIRUBIN,URINE SMALL (NEGATIVE); COLOR,URINE YELLOW (YELLOW); GLUCOSE,URINE NEGATIVE (NEGATIVE); KETONES,URINE NEGATIVE (NEGATIVE); LEUKOCYTE ESTERASE,URINE TRACE (NEGATIVE); NITRITE,URINE NEGATIVE (NEGATIVE); OCCULT BLOOD,URINE TRACE-INTACT (NEGATIVE); PH,URINE 5.5 (5.0-8.0); PROTEIN,URINE 30 mg/dL (NEGATIVE)
[2023-11-05 21:05] LABS: APPEARANCE,URINE SLIGHTLY CLOUDY (CLEAR)
[2023-11-05 21:07] LABS: BACTERIA,URINE FEW /HPF (NOT SEEN); RBC,URINE 0-5 /HPF (NOT SEEN); SQUAMOUS EPITHELIAL CELLS,UR MODERATE /HPF (NOT SEEN)
[2023-11-05 21:08] LABS: AMORPHOUS SEDIMENT,URINE FEW; AMPHETAMINES SCREEN, URINE NEGATIVE (NEGATIVE); BARBITURATE SCREEN,URINE NEGATIVE (NEGATIVE); BENZODIAZEPINES SCREEN,URINE NEGATIVE (NEGATIVE); BUPRENORPHINE SCREEN,URINE NEGATIVE (NEGATIVE); COCAINE METABOLITES,URINE NEGATIVE (NEGATIVE); METHADONE SCREEN, URINE NEGATIVE (NEGATIVE); METHAMPHETAMINE SCREEN, URINE NEGATIVE (NEGATIVE); MUCUS,URINE NOT SEEN /LPF (NOT SEEN); OXYCODONE SCREEN,URINE NEGATIVE (NEGATIVE); PCP SCREEN,URINE NEGATIVE (NEGATIVE); THC SCREEN,URINE 50 NG/ML NEGATIVE (NEGATIVE)
[2023-11-05 21:22] LABS: CORONAVIRUS COVID-19 NAA NEGATIVE (NEGATIVE); INFLUENZA A NAA NEGATIVE (NEGATIVE); INFLUENZA B NAA NEGATIVE (NEGATIVE)
[2023-11-05] MEDS: Benzonatate 100 MG Cap PO ONE (21:43)
== END 2023-11-05 21:47 | disposition home or self-care (01) ==
LOC: VM.ED 19:40
DX: R05.1 Acute cough (principal); K21.9 Gastro-esophageal reflux disease without esophagitis; E03.9 Hypothyroidism, unspecified; F17.210 Nicotine dependence, cigarettes, uncomplicated; Z88.2 Allergy status to sulfonamides; Z88.8 Allergy status to other drugs, medicaments and biological substances; Z79.899 Other long term (current) drug therapy; Z90.49 Acquired absence of other specified parts of digestive tract
CPT/HCPCS: 0240U; 36415; 71046; 80053; 80305; 80307; 81001; 85025; 87086; 99285; A9270

== ENCOUNTER 2023-11-26 16:56 | Emergency (ER) | payer MEDICARE, MEDICAID ==
[2023-11-26] MEDS: ClonazePAM 0.5 MG Tab PO ONE ×2 (17:13→17:30)
== END 2023-11-26 17:35 | disposition home or self-care (01) ==
LOC: VM.ED 16:56 → SUPCPDRO 16:56 → VM.ED 17:35
DX: F13.130 Sedative, hypnotic or anxiolytic abuse with withdrawal, uncomplicated (principal); F17.210 Nicotine dependence, cigarettes, uncomplicated; F41.9 Anxiety disorder, unspecified; Z88.2 Allergy status to sulfonamides; Z88.5 Allergy status to narcotic agent; Z79.51 Long term (current) use of inhaled steroids; Z79.899 Other long term (current) drug therapy; Z86.73 Personal history of transient ischemic attack (TIA), and cerebral infarction without residual deficits
CPT/HCPCS: 99281; A9270-GY

== ENCOUNTER 2023-12-16 13:23 | Emergency (ER) | payer MEDICARE, MEDICAID ==
[2023-12-16 13:50] LABS: BASOPHILS ABSOLUTE AUTO 0.1 x10^3/uL (0.0-0.2); BASOPHILS PERCENT AUTO 0.7 % (0.2-1.2); EOSINOPHILS ABSOLUTE AUTO 0.3 x10^3/uL (0.0-0.5); EOSINOPHILS PERCENT AUTO 3.3 % (0.0-4.0); IMMATURE GRAN ABSOLUTE AUTO 0.02 x10^3/uL (0.00-0.07); LYMPHOCYTES ABSOLUTE AUTO 3.8 x10^3/uL (1.0-4.8); LYMPHOCYTES PERCENT AUTO 36.7 % (25.0-50.0); MEAN CORPUSCULAR HEMOGLOBIN 28.8 pg (26.0-32.0); MEAN CORPUSCULAR HGB CONC 32.5 g/dL (32.0-36.0); MEAN CORPUSCULAR VOLUME 88.5 fL (78.0-93.0); MONOCYTES ABSOLUTE AUTO 0.8 x10^3/uL (0.0-0.8); MONOCYTES PERCENT AUTO 7.8 % (2.0-11.0); NEUTROPHILS ABSOLUTE AUTO 5.4 x10^3/uL (1.8-7.7); NEUTROPHILS PERCENT AUTO 51.3 % (50.0-80.0); PLATELET COUNT,PLT 338 x10^3/uL (130-400); RED BLOOD CELL COUNT 4.52 x10^6/uL (4.00-5.50); WHITE BLOOD CELL COUNT,WBC 10.4 x10^3/uL (4.0-10.0)
[2023-12-16 14:00] LABS: AMPHETAMINES SCREEN, URINE NEGATIVE (NEGATIVE); BARBITURATE SCREEN,URINE NEGATIVE (NEGATIVE); BENZODIAZEPINES SCREEN,URINE NEGATIVE (NEGATIVE); BUPRENORPHINE SCREEN,URINE NEGATIVE (NEGATIVE); COCAINE METABOLITES,URINE NEGATIVE (NEGATIVE); METHADONE SCREEN, URINE NEGATIVE (NEGATIVE); METHAMPHETAMINE SCREEN, URINE POSITIVE (NEGATIVE); OXYCODONE SCREEN,URINE NEGATIVE (NEGATIVE); PCP SCREEN,URINE NEGATIVE (NEGATIVE); THC SCREEN,URINE 50 NG/ML NEGATIVE (NEGATIVE)
[2023-12-16 14:09] LABS: A/G RATIO 0.79; ALANINE AMINOTRANSFERASE,ALT 11 U/L (14-59); ALBUMIN 3.1 g/dL (3.4-5.0); ALKALINE PHOSPHATASE 106 U/L (46-116); ANION GAP 16.8 mmol/L (5-15); ASPARTATE AMNIOTRANSFERASE,AST 14 U/L (15-37); BILIRUBIN TOTAL 0.1 mg/dL (0.2-1.0); BLOOD UREA NITROGEN,BUN 10 mg/dL (7-18); CALCIUM 8.5 mg/dL (8.5-10.1); CARBON DIOXIDE,CO2 21 mmol/L (21-32); CHLORIDE,CL 108 mmol/L (98-107); CREATININE 0.9 mg/dL (0.55-1.02); ESTIMATED GFR 75 mL/min (>=60); GLUCOSE RANDOM 110 mg/dL (70-99); POTASSIUM,K 3.8 mmol/L (3.5-5.1); SODIUM,NA 142 mmol/L (136-145)
== END 2023-12-16 14:35 ==
LOC: VM.ED 13:23
DX: F32.A Depression, unspecified (principal); F17.210 Nicotine dependence, cigarettes, uncomplicated; K21.9 Gastro-esophageal reflux disease without esophagitis; Z86.73 Personal history of transient ischemic attack (TIA), and cerebral infarction without residual deficits; Z79.899 Other long term (current) drug therapy; Z88.2 Allergy status to sulfonamides; Z88.5 Allergy status to narcotic agent
CPT/HCPCS: 36415; 80053; 80305-QW; 85025; 99285

== ENCOUNTER 2024-07-03 12:30 | Emergency (ER) | payer MEDICARE, MEDICAID ==
[2024-07-03] MEDS: Albuterol/Ipratropium 3.0-0.5 MG/3 ML Neb Soln NEB ONE (12:46)
[2024-07-03] MEDS: ALPRAZolam 0.25 MG Tab PO ONE (12:46)
== END 2024-07-03 14:15 | disposition home or self-care (01) ==
LOC: VM.ED 12:30
DX: J06.9 Acute upper respiratory infection, unspecified (principal); F41.9 Anxiety disorder, unspecified; K21.9 Gastro-esophageal reflux disease without esophagitis; E03.9 Hypothyroidism, unspecified; F17.210 Nicotine dependence, cigarettes, uncomplicated; Z79.899 Other long term (current) drug therapy; Z88.5 Allergy status to narcotic agent; Z88.2 Allergy status to sulfonamides
CPT/HCPCS: 71045; 94640; 99284; 99285; A9270-GY; J7620-GY

== ENCOUNTER 2024-08-04 17:15 | Emergency (ER) | payer MEDICARE, MEDICAID ==
[2024-08-04] MEDS: Take Home: Amoxicillin/Clavulanate K 875-125 MG Tab, 2 Tab Pack PO ONE (17:51)
[2024-08-04] MEDS: Ketorolac 30 MG/ML SDV IM ONE (17:51)
== END 2024-08-04 17:56 | disposition home or self-care (01) ==
LOC: VM.ED 17:15
DX: L03.116 Cellulitis of left lower limb (principal); Z88.2 Allergy status to sulfonamides; Z88.5 Allergy status to narcotic agent; Z79.899 Other long term (current) drug therapy; Z79.51 Long term (current) use of inhaled steroids; Z86.73 Personal history of transient ischemic attack (TIA), and cerebral infarction without residual deficits
CPT/HCPCS: 96372; 99283; A9270; J1885

== ENCOUNTER 2024-08-15 14:11 | Emergency (ER) | payer MEDICARE, MEDICAID ==
[2024-08-15 16:20] LABS: BASOPHILS PERCENT AUTO 0.4 % (0.2-1.2); EOSINOPHILS ABSOLUTE AUTO 0.3 x10^3/uL (0.0-0.5); HEMATOCRIT 36.2 % (33.0-47.0); HEMOGLOBIN 11.9 g/dL (12.0-16.0); IMMATURE GRAN ABSOLUTE AUTO 0.01 x10^3/uL (0.00-0.07); LYMPHOCYTES ABSOLUTE AUTO 4.6 x10^3/uL (1.0-4.8); LYMPHOCYTES PERCENT AUTO 42.2 % (25.0-50.0); MEAN CORPUSCULAR HGB CONC 32.9 g/dL (32.0-36.0); MEAN CORPUSCULAR VOLUME 88.3 fL (78.0-93.0); MONOCYTES ABSOLUTE AUTO 0.9 x10^3/uL (0.0-0.8); MONOCYTES PERCENT AUTO 8.6 % (2.0-11.0); NEUTROPHILS PERCENT AUTO 45.7 % (50.0-80.0); PLATELET COUNT,PLT 392 x10^3/uL (130-400); WHITE BLOOD CELL COUNT,WBC 10.9 x10^3/uL (4.0-10.0)
[2024-08-15 16:36] LABS: A/G RATIO 0.69; ALANINE AMINOTRANSFERASE,ALT 11 U/L (14-59); ALBUMIN 2.9 g/dL (3.4-5.0); ALKALINE PHOSPHATASE 129 U/L (46-116); ANION GAP 10.9 mmol/L (5-15); ASPARTATE AMNIOTRANSFERASE,AST 14 U/L (15-37); BILIRUBIN TOTAL 0.2 mg/dL (0.2-1.0); BLOOD UREA NITROGEN,BUN 8 mg/dL (7-18); CALCIUM 8.1 mg/dL (8.5-10.1); CARBON DIOXIDE,CO2 27 mmol/L (21-32); CHLORIDE,CL 106 mmol/L (98-107); CREATININE 0.8 mg/dL (0.55-1.02); ESTIMATED GFR 86 mL/min (>=60); GLUCOSE RANDOM 101 mg/dL (70-99); POTASSIUM,K 3.9 mmol/L (3.5-5.1); PROTEIN TOTAL,TP 7.1 g/dL (6.4-8.2); SODIUM,NA 140 mmol/L (136-145)
[2024-08-15] MEDS: Enoxaparin 100 MG/1 ML Syringe SUBCUT ONE (17:04)
== END 2024-08-15 17:16 | disposition home or self-care (01) ==
LOC: VM.ED 14:11
DX: M79.89 Other specified soft tissue disorders (principal); R79.1 Abnormal coagulation profile; Z88.2 Allergy status to sulfonamides; Z88.5 Allergy status to narcotic agent; Z79.899 Other long term (current) drug therapy; Z86.73 Personal history of transient ischemic attack (TIA), and cerebral infarction without residual deficits
CPT/HCPCS: 36415; 80053; 85025; 85379; 96372; 99283; 99284; J1650